=== PATIENT | male | born 1995 | race Caucasian/White ===

== ENCOUNTER 2022-10-11 19:36 | Emergency (ER) | payer OTHER, SELFPAY ==
[2022-10-11 19:44] VITALS: BP 126/91; PULSE 119; O2SAT 96
[2022-10-11 19:51] VITALS: PULSE 90; RESP 20; O2SAT 96
[2022-10-11 19:58] VITALS: BP 149/104; PULSE 91; RESP 19; TEMP 36.7; O2SAT 96
--- NOTE | 2022-10-11 20:07 | ECG_ITS ---
Test Reason : Withdrawal Blood Pressure : / mmHG Vent. Rate : 087 BPM Atrial Rate : 087 BPM P-R Int : 144 ms QRS Dur : 102 ms QT Int : 348 ms P-R-T Axes : 042 079 037 degrees QTc Int : 418 ms Normal sinus rhythm Normal ECG No previous ECGs available Referred By: Generic ED Physician Electronically Signed By:Xavi Hernandez
--- NOTE | 2022-10-11 20:30 | PC.NURSE ---
this rn assumed care of pt @ 1950. pt placed on quality assurance monitor. iv line placed 20 g R AC. ekg performed. blood work obtained and sent down to lab. pt leigh upon arrival 8. pt calm and cooperative. pt denies si/hi. pt okay per charge machine operator to keep belongings at bedside
[2022-10-11 20:35] LABS: MANUAL DIFF FLAG NO
[2022-10-11 20:36] LABS: Basophils Absolute Auto 0.1 X10*3/uL (0.0-0.2); Basophils Percent Auto 0.6 % (0-2); Eosinophils Percent Auto 0.2 % (0-4); Hematocrit 46.9 % (42.0-52.0); Hemoglobin 16.4 g/dl (14.0-18.0); Imm Gran Abs Auto 0.03 X10*3/uL (0.00-0.03); Imm Gran Pct Auto 0.3 % (0.0-0.4); Lymphocytes Absolute Auto 1.8 X10*3/uL (1.2-4.9); Lymphocytes Percent Auto 18.8 % (20-40); Mean Corpuscular Hemoglobin 31.9 pg (27.0-33.0); Mean Corpuscular Volume 91.2 fL (80.0-98.0); Mean Platelet Volume 9.6 fL (9.4-12.4); Monocytes Absolute Auto 1.2 X10*3/uL (0.1-1.2); Monocytes Percent Auto 12.1 % (2-11); Neutrophils Absolute Auto 6.5 x10*3/uL (2.0-8.3); Platelet Count 184 X10*3/uL (160-400); Red Blood Count 5.14 X10*6/uL (4.60-5.80); Red Cell Distribution Width 11.9 % (11.0-16.0); White Blood Count 9.6 X10*3/uL (4.8-10.8)
[2022-10-11 20:53] LABS: Ethanol < 10 mg/dL
[2022-10-11 20:54] LABS: Alanine Aminotransferase 202 U/L (0-40); Albumin Level 4.4 g/dL (3.5-5.0); Alkaline Phosphatase 60 U/L (39-117); Anion Gap 17 (12-20); Aspartate Amino Transferase 100 U/L (5-37); Bilirubin Direct 0.5 mg/dL (0.0-0.5); Bilirubin Total 1.6 mg/dL (0.0-1.0); Blood Urea Nitrogen 5 mg/dL (9-16); Calcium 9.6 mg/dL (8.4-10.2); Carbon Dioxide 26 mmol/L (22-29); Chloride 100 mmol/L (96-108); Creatinine Clr Calc Pharmacy 164.2; Estimated Glomerular Filt Rate > 60; Glucose Random 103 mg/dL (60-115); Potassium 3.8 mmol/L (3.3-5.1); Sodium 139 mmol/L (135-145); Total Protein 6.8 g/dL (6.5-8.0)
[2022-10-11 21:02] LABS: Troponin-I High Sensitivity < 2.7 ng/L (<3.5-35.0)
--- NOTE | 2022-10-11 21:12 | ED.ALCOHOL ---
HPI - Alcohol General Chief Complaint: ETOH/Substance Use Stated Complaint: withdraws Time Seen by Provider: 10/11/22 21:00 History of Present Illness HPI narrative: Patient is a 27 year old male presented today with having a history of alcohol use. Patient has sharp drinking alcohol 2 days ago. Went to [facility] was given a mg of Ativan. Subsequently attempted to contact detox facility but with unable to get into a detox program. Presented to the ED for help. Patient denies any fever chills. No other medical issues. Not allergic to anything. He recently relocated to the [facility] from [place] Related Data Previous Rx's Medication Instructions Recorded lorazepam 1 mg tablet (Ativan) 1 mg PO TID PRN alcohol withdrawal 10/11/22 #7 tabs Allergies Allergy/AdvReac Type Severity Reaction Status Date / Time No Known Allergies Allergy Verified 10/11/22 20:02 Review of Systems Review of Systems: No fever no chills no focal weakness Yes all other systems are reviewed and are negative [facility] Past Medical History Attestation statement: The following information was validated with the patient. Social History Social History Advance Directives: No Advance Directives Information Provided: Yes Physical Exam ED Vital Signs: Vital Signs - 24 hr 10/11/22 19:51 10/11/22 19:58 Temperature 98.1 F Pulse Rate 90 91 Respiratory Rate 20 19 Blood Pressure 149/104 H Pulse Oximetry 96 96 Oxygen Delivery Method Room Air Room Air BMI result Body Mass Index 30.0 Appearance: Alert. Oriented X3. No acute distress. Eyes: Pupils equal, round and reactive to light. ENT: Pharynx normal. Neck: Normal inspection. Neck supple. No lymph nodes noted. No crepitus CVS: Normal heart rate and rhythm. Pulses normal. Normal S1 and S2 Respiratory: No respiratory distress. Breath sounds normal. No Wheezing. No rales Abdomen: Soft and nontender. No rigidity. No distention. good BS x4 Skin: Skin warm and dry. Normal skin color. Normal skin turgor. Extremities: No lower extremity edema. Neurovascular intact to all extremities. No Lacerations. No Rash Neuro: Oriented X 3. No motor deficit. No sensory deficit. Moving all extermities. No slurred speech Medical Decision Making Medical Decision Making MDM Narrative: Patient well appearing not acute distress. Exam is normal. His vital signs showed a heart rate in the 80s. Blood pressure is normal. Patient's CIWA scale is 8. He still feels a little shaky. Will offer patient 1 mg of Ativan here in the emergency department. A prescription of Ativan. Will have patient follow-up on an outpatient basis. Care team consulted to offer patient additional traces for detox. Differential Diagnosis Alcohol withdrawal, anxiety Consult Healthcare Provider Care team Lab Data MDM Lab Attestation statement: I reviewed the patient's lab results. 10/11/22 20:31 10/11/22 20:31 Labs: Lab Results 10/11/22 10/11/22 10/11/22 Range/Units 20:31 20:31 20:31 WBC 9.6 (4.8-10.8) X10*3/uL RBC 5.14 (4.60-5.80) X10*6/uL Hgb 16.4 (14.0-18.0) g/dl Hct 46.9 (42.0-52.0) % MCV 91.2 (80.0-98.0) fL MCH 31.9 (27.0-33.0) pg MCHC 35.0 (31.0-36.0) g/dl RDW 11.9 (11.0-16.0) % Plt Count 184 (160-400) X10*3/uL MPV 9.6 (9.4-12.4) fL Immature Gran % (Auto) 0.3 (0.0-0.4) % Neut % (Auto) 68.0 (45-73) % Lymph % (Auto) 18.8 L (20-40) % [place] % (Auto) 12.1 H (2-11) % Eos % (Auto) 0.2 (0-4) % Baso % (Auto) 0.6 (0-2) % Lymph # (Auto) 1.8 (1.2-4.9) X10*3/uL [place] # (Auto) 1.2 (0.1-1.2) X10*3/uL Eos # (Auto) 0.0 (0.0-0.4) X10*3/uL Baso # (Auto) 0.1 (0.0-0.2) X10*3/uL Abs Immat Gran (auto) 0.03 (0.00-0.03) X10*3/uL Absolute Neuts (auto) 6.5 (2.0-8.3) x10*3/uL Absolute Nucleated RBC 0.000 (0.0-0.012) X10*3/uL Nucleated RBC % (auto) 0.0 (0.0-0.2) /100WBC Sodium 139 (135-145) mmol/L Potassium 3.8 (3.3-5.1) mmol/L Chloride 100 (96-108) mmol/L Carbon Dioxide 26 (22-29) mmol/L Anion Gap 17 (12-20) BUN 5 L (9-16) mg/dL Creatinine 0.79 (0.5-1.4) mg/dL Estim Creat Clear Calc 164.2 Estimated GFR > 60 Random Glucose 103 (60-115) mg/dL Calcium 9.6 (8.4-10.2) mg/dL Total Bilirubin 1.6 H (0.0-1.0) mg/dL Direct Bilirubin 0.5 (0.0-0.5) mg/dL AST 100 H (5-37) U/L ALT 202 H (0-40) U/L Alkaline Phosphatase 60 (39-117) U/L Troponin I High Sens < 2.7 (<3.5-35.0) ng/L Total Protein 6.8 (6.5-8.0) g/dL Albumin 4.4 (3.5-5.0) g/dL Ethyl Alcohol mg/dL 10/11/22 Range/Units 20:31 WBC (4.8-10.8) X10*3/uL RBC (4.60-5.80) X10*6/uL Hgb (14.0-18.0) g/dl Hct (42.0-52.0) % MCV (80.0-98.0) fL MCH (27.0-33.0) pg MCHC (31.0-36.0) g/dl RDW (11.0-16.0) % Plt Count (160-400) X10*3/uL MPV (9.4-12.4) fL Immature Gran % (Auto) (0.0-0.4) % Neut % (Auto) (45-73) % Lymph % (Auto) (20-40) % [place] % (Auto) (2-11) % Eos % (Auto) (0-4) % Baso % (Auto) (0-2) % Lymph # (Auto) (1.2-4.9) X10*3/uL [place] # (Auto) (0.1-1.2) X10*3/uL Eos # (Auto) (0.0-0.4) X10*3/uL Baso # (Auto) (0.0-0.2) X10*3/uL Abs Immat Gran (auto) (0.00-0.03) X10*3/uL Absolute Neuts (auto) (2.0-8.3) x10*3/uL Absolute Nucleated RBC (0.0-0.012) X10*3/uL Nucleated RBC % (auto) (0.0-0.2) /100WBC Sodium (135-145) mmol/L Potassium (3.3-5.1) mmol/L Chloride (96-108) mmol/L Carbon Dioxide (22-29) mmol/L Anion Gap (12-20) BUN (9-16) mg/dL Creatinine (0.5-1.4) mg/dL Estim Creat Clear Calc Estimated GFR Random Glucose (60-115) mg/dL Calcium (8.4-10.2) mg/dL Total Bilirubin (0.0-1.0) mg/dL Direct Bilirubin (0.0-0.5) mg/dL AST (5-37) U/L ALT (0-40) U/L Alkaline Phosphatase (39-117) U/L Troponin I High Sens (<3.5-35.0) ng/L Total Protein (6.5-8.0) g/dL Albumin (3.5-5.0) g/dL Ethyl Alcohol < 10 mg/dL Prescription Management Ativan Discharge Plan Discharge Clinical Impression: Alcohol withdrawal syndrome Patient Disposition: Home, Self-Care Instructions: Abuse of Alcohol (ED), Alcohol Withdrawal (DC) Prescriptions: New lorazepam [Ativan] 1 mg tablet 1 mg PO TID MDD 3 PRN (Reason: alcohol withdrawal) Qty: 7 0RF Referrals: [facility] [Provider Group] (Please go to detox.)
[2022-10-11 21:27] LABS: Amphetamine Screen Urine Not Detected (Not Detect); Barbiturates, Urine Not Detected (Not Detect); Benzodiazepines Screen Urine Not Detected (Not Detect); Cannabinoid Screen Urine Not Detected (Not Detect); Cocaine Screen Urine Not Detected (Not Detect); Fentanyl, urine Not Detected (Not Detect); Opiate Screen Urine Not Detected (Not Detect); Phencyclidine Screen Urine Not Detected (Not Detect)
[2022-10-11 21:30] LABS: Appearance Urine Clear; Color Urine Yellow; Glucose Urine UA Negative (Negative); Leukocyte Esterase Urine Negative (Negative); Nitrite Urine Negative (Negative); PH 6.5 (5.0-9.0); Urine Blood Negative (Negative); Urine Ketones 15 mg/dL (Negative); Urine Protein Negative (Neg-Trace)
--- NOTE | 2022-10-12 00:28 | MHC.CARE ---
CARE Team met with the pt at the request of Dr. Mays. Pt is requesting detox from ETOH at this time. It has been three days since the pt had his last drink. The pt stated that he drinks 750ml of hard liquor per day. Pt stated that he had the DT's for the past three days since he stopped drinking. Today, pt had a CIWA score of 8. Pt is requesting to stay in the hospital for the night in case I get worse with detoxing. Pt is anxious at his baseline and with the thought of detoxing is making his anxiety even worse. There were no detox beds available this evening. CARE Team gave the pt the resource booklet with all the detox information in it. CARE Team highlighted the sections for the pt to pay attention to. Pt stated that his family and his daughter were coming to see him tomorrow. Pt stated that he would look into a detox after they leave. Pt is in the [employer] and transferred to [place] three days ago. He just moved here from [place]. Pt stated that he has a lot of life stressors including starting the divorce process that he didn't initiate, moving to the [place], and not being able to see his daughter. Dr. Mays stated that the pt could stay here until 0645 in the morning, and then would need to be discharged. CARE Team convied this information to the pt and he agreed to it.
[2022-10-12] MEDS: LORazepam 1 MG TABLET PO (00:51)
[2022-10-12 02:49] VITALS: BP 140/88; PULSE 82; RESP 17; TEMP 36.4; O2SAT 97
--- NOTE | 2022-10-12 03:51 | PC.NURSE ---
discharge order placed. pt did not feel comfortable going home for fear withdraw could become worse, dr conroy and care team to reevaluate. per care team and dr conroy pt okay to stay until am. pt sleeping on stretcher at this time rise and fall of chest noted
--- NOTE | 2022-10-12 04:34 | PC.NURSE ---
pt provided this rn with contact persons' phones numbers per pt if should need to contact family on his behalf may contact- Maria Luisa (sister)- [phone] Sandra(mother) [phone]
[2022-10-12 06:06] VITALS: BP 138/92; PULSE 76; RESP 17; TEMP 36.6; O2SAT 94
--- NOTE | 2022-10-12 06:13 | PC.NURSE ---
pt asked if he felt comfortable for discharge and utilizing pamphlet to coordinate placement in detox. pt reports to this rn, feels safe with discharge and comfortable in finding self placement. pt states family will be coming into town tonight to assist in finding placement. this rn discussed this plan with gemma from care team and dr conroy. both agreeable to this plan.
--- NOTE | 2022-10-12 06:22 | PC.NURSE ---
pt ambulatory at discharge. iv removed. vss. pt states feels comfortable going home now. pt provided with discharge packet. pt verbalized understanding of discharge plan
== END 2022-10-12 06:23 | disposition home or self-care (01) ==
PROVIDERS: Emergency Provider Emergency Medicine Emergency Medical Services
DX: F10.239 Alcohol dependence with withdrawal, unspecified (principal); Y90.0 Blood alcohol level of less than 20 mg/100 ml; Z79.899 Other long term (current) drug therapy
CPT/HCPCS: 36415; 80053; 80307; 81003; 82248; 84484; 85025; 93005; 99284; 99285

== ENCOUNTER 2024-01-09 18:17 | Emergency (ER) | payer OTHER, SELFPAY ==
--- NOTE | ~2024-01-09 | US_ITS ---
EXAMINATION: US SCROTUM CLINICAL INFORMATION: Testicular pain. Rule out torsion.. COMPARISON: None available. TECHNIQUE: A sonogram of the scrotum was performed assessing sanchez-scale appearance and color Doppler flow. Spectral Doppler analysis of the arterial and venous flow were performed in the testes bilaterally. FINDINGS: RIGHT: Right testicle measures 5 x 2.4 x 3.3 cm, volume 21.2 mL. No focal testicular parenchymal lesions are visualized. Echogenicity is mildly heterogeneous and striated. Spectral Doppler analysis of the arterial and venous flow is increased in the right testis. Right epididymal head is normal in size. No right varicocele is seen. Right epididymal Doppler flow is normal. Small complex right-sided hydrocele. LEFT: Left testicle measures 5.2 x 2.3 x 3.4 cm, volume 20.5 mL. No focal testicular parenchymal lesions are visualized. Spectral Doppler analysis of the arterial and venous flow is normal in the left testis. Left epididymal head is normal in size. No left hydrocele or varicocele is seen. Left epididymal Doppler flow is normal. US/US scrotum doppler IMPRESSION: 1. Slight parenchymal heterogeneity in the right testicle with increased blood flow on color Doppler. This can be seen with orchitis or recent detorsion of the testicle.. 2. Small complex right-sided hydrocele.
--- NOTE | ~2024-01-09 | US_ITS ---
EXAMINATION: US SCROTUM CLINICAL INFORMATION: Testicular pain. Rule out torsion.. COMPARISON: None available. TECHNIQUE: A sonogram of the scrotum was performed assessing sanchez-scale appearance and color Doppler flow. Spectral Doppler analysis of the arterial and venous flow were performed in the testes bilaterally. FINDINGS: RIGHT: Right testicle measures 5 x 2.4 x 3.3 cm, volume 21.2 mL. No focal testicular parenchymal lesions are visualized. Echogenicity is mildly heterogeneous and striated. Spectral Doppler analysis of the arterial and venous flow is increased in the right testis. Right epididymal head is normal in size. No right varicocele is seen. Right epididymal Doppler flow is normal. Small complex right-sided hydrocele. LEFT: Left testicle measures 5.2 x 2.3 x 3.4 cm, volume 20.5 mL. No focal testicular parenchymal lesions are visualized. Spectral Doppler analysis of the arterial and venous flow is normal in the left testis. Left epididymal head is normal in size. No left hydrocele or varicocele is seen. Left epididymal Doppler flow is normal. US/US scrotum IMPRESSION: 1. Slight parenchymal heterogeneity in the right testicle with increased blood flow on color Doppler. This can be seen with orchitis or recent detorsion of the testicle.. 2. Small complex right-sided hydrocele.
--- NOTE | 2024-01-09 18:19 | ED_ITS ---
HPI - Male Genitourinary General Chief complaint: Urogenital-Male Stated complaint: severe katie pain in testes, nausea, fever 101 Time Seen by Provider: 01/09/24 20:20 Source: patient Mode of arrival: ambulatory Limitations: no limitations History of Present Illness HPI Narrative: This is a 28-year-old man with a past medical history of alcohol use disorder, hernia repair who presents for evaluation of right testicular pain. Patient states pain is gradually worsening over the last 1 day. He States pain is in his right testicle. He states associated nausea without emesis. He states no dysuria or urinary frequency/urgency. He states no changes to his bowel habits. He states no fevers or chills. He reports his right testicle is tender to palpation. He states no rash. He states no chest pain, dyspnea, palpitations or syncope. He states no abdominal pain. He states no back pain. Related Data Previous Rx's ?Medication ?Instructions ?Recorded lorazepam 1 mg tablet (Ativan) 1 mg PO TID PRN alcohol withdrawal 10/11/22 #7 tabs doxycycline hyclate 100 mg tablet 100 mg PO BID #20 tabs 01/09/24 Allergies Allergy/AdvReac Type Severity Reaction Status Date / Time No Known Allergies Allergy Verified 01/09/24 18:27 Review of Systems 2 Review of Systems: ROS as per [facility] Social History Social History Alcohol intake: current Alcohol intake frequency: 3 or more drinks per day Alcohol type: hard liquor Smoked in Last 30 Days: No Use of substances other than those prescribed or required for medical reasons: No Advance Directives: No Advance Directives Information Provided: No Physical Exam 2 Vital Signs: Vital Signs: Last Vital Signs Temp 99.0 F 01/09/24 20:21 Pulse 86 01/09/24 20:21 Resp 16 01/09/24 20:21 BP 122/77 01/09/24 20:21 Pulse Ox 96 01/09/24 20:21 O2 Del Method Room Air 01/09/24 20:21 BMI result Body Mass Index 30.9 Gen: NAD, AOx3 HEENT: NCAT, EOMI, normal conjunctiva CV: RRR Pulm: CTAB, no increased work of breathing GI: Soft, NTND, no rebound, guarding or rigidity : Performed global transportation manager Evy Morgan RN preseent, normal external male genitalia, no testicular horizontal lie, tenderness to palpation to the right posterior testicle, intact bilateral cremasteric reflex, negative Prehn sign, no palpable inguinal hernia Neuro: Grossly non focal Course Course Course Narrative: This is a Rapid Medical Exam performed in triage by Taniya Sumner PA-C. Full HPI, ROS and PE to be performed by primary ED provider. 28 year-old M w/PMHx hernia s/p repair, strep throat currently on Abx, presenting to the ED c/o near syncopal episode earlier today and R testicular pain radiating to groin starting last night but worsening today. Pain worse with ambulating and standing described as pulling . Pain began randomly, denies trauma or pain after intercourse. Admits to fever, nausea. denies hematuria, dysuria PE: abdomen soft & nontender Plan: Labs, UA, CTNG, US Medications Administered Discontinued Medications Generic Name Dose Route Start Last Admin Trade Name Freq PRN Reason Stop Dose Admin Sodium Chloride 1,000 mls @ 999 mls/hr 01/09/24 20:30 01/09/24 22:10 Ns IV 01/09/24 21:30 Infused .Q1H1M TIMA Infusion Ceftriaxone Sodium 1 gm/ 50 mls @ 100 mls/hr 01/09/24 23:02 01/09/24 23:31 Sodium Chloride IV 01/09/24 23:31 100 mls/hr ONCE ONE Administration Ketorolac Tromethamine 15 mg 01/09/24 20:30 01/09/24 21:01 Ketorolac Tromethamine 15 Mg/Ml Vial IVPUSH 01/09/24 20:31 15 mg ONCE ONE Administration Ondansetron HCl 4 mg 01/09/24 20:30 01/09/24 21:01 Ondansetron Hcl 4 Mg/2 Ml Vial IVPUSH 01/09/24 20:31 4 mg ONCE ONE Administration Medical Decision Making Medical Decision Making MDM Narrative: Differential diagnosis includes, but is not limited to testicular torsion, epididymitis urinary tract infection, sexually transmitted infection. Patient brought in supportive care here with IV fluids, Zofran and Toradol. I discussed case and management with the oncoming physician Dr. Pete. Care is transitioned to incoming physician at the end of my shift with disposition pending remaining urinalysis/G and C and ultrasound imaging results Patient comes with right testicular pain for last 24 gradual onset with a got worse nausea and vomiting patient been treated for strep throat for last 2 days had fever 102f , 2 days ago and today was 101 degrees taking Augmentin twice a day feeling much better on examination patient has slight tenderness in right testicle skin is normal in color no penile discharge no history of STIs no history of an anal intercourse ultrasound showed ??? right orchitis/recent detorsion. Patient's lactic acid is 1.[address] Buckner urologist likely orchitis advised to follow up as outpatient advised patient to continue Augmentin will add doxycycline Admission/Observation Consideration of admission/observation: Escalation of care including admission/observation considered Lab Data MDM Lab Attestation statement: I reviewed the patient's lab results. I independently reviewed and interpreted patient's labs are notable for a leukocytosis with a white blood cell count of 18.0. 01/09/24 18:32 01/09/24 18:32 Labs: Lab Results 01/09/24 01/09/24 Range/Units 18:32 23:20 WBC 18.0 H (4.8-10.8) X10*3/uL RBC 5.22 (4.60-5.80) X10*6/uL Hgb 15.7 (14.0-18.0) g/dl Hct 45.6 (42.0-52.0) % MCV 87.4 (80.0-98.0) fL MCH 30.1 (27.0-33.0) pg MCHC 34.4 (31.0-36.0) g/dl RDW 12.2 (11.0-16.0) % Plt Count 226 (160-400) X10*3/uL MPV 10.2 (9.4-12.4) fL Immature Gran % (Auto) 0.6 H (0.0-0.4) % Neut % (Auto) 69.5 (45-73) % Lymph % (Auto) 19.7 L (20-40) % [place] % (Auto) 9.6 (2-11) % Eos % (Auto) 0.3 (0-4) % Baso % (Auto) 0.3 (0-2) % Lymph # (Auto) 3.6 (1.2-4.9) X10*3/uL [place] # (Auto) 1.7 H (0.1-1.2) X10*3/uL Eos # (Auto) 0.1 (0.0-0.4) X10*3/uL Baso # (Auto) 0.1 (0.0-0.2) X10*3/uL Abs Immat Gran (auto) 0.11 H (0.00-0.03) X10*3/uL Absolute Neuts (auto) 12.5 H (2.0-8.3) x10*3/uL Absolute Nucleated RBC 0.000 (0.0-0.012) X10*3/uL Nucleated RBC % (auto) 0.0 (0.0-0.2) /100WBC Smear Tech's Comments VERIFIED Sodium 141 (135-145) mmol/L Potassium 4.9 (3.3-5.1) mmol/L Chloride 102 (96-108) mmol/L Carbon Dioxide 27 (22-29) mmol/L Anion Gap 17 (12-20) BUN 11 (9-16) mg/dL Creatinine 0.97 (0.5-1.4) mg/dL Estim Creat Clear Calc 134.5 Estimated GFR > 60 Random Glucose 128 H (60-115) mg/dL Lactic Acid 1.9 (0.5-2.0) mmol/L Calcium 9.8 (8.4-10.2) mg/dL Magnesium 2.1 (1.6-2.6) mg/dL Total Bilirubin 0.5 (0.0-1.0) mg/dL Direct Bilirubin 0.2 (0.0-0.5) mg/dL AST 13 (5-37) U/L ALT 16 (0-40) U/L Alkaline Phosphatase 64 (39-117) U/L Total Protein 7.7 (6.5-8.0) g/dL Albumin 4.5 (3.5-5.0) g/dL Lipase 13 (8-78) U/L Urine Color Yellow Urine Appearance Clear Urine pH 6.5 (5.0-9.0) Ur Specific Isabel 1.010 (1.005-1.025) Urine Protein Negative (Neg-Trace) mg/dL Urine Glucose (UA) Negative (Negative) mg/dL Urine Ketones Negative (Negative) mg/dL Urine Blood Negative (Negative) Urine Nitrite Negative (Negative) Ur Leukocyte Esterase Negative (Negative) Discharge Plan Discharge Clinical Impression: Orchitis of right testicle Patient Disposition: Home, Self-Care Instructions: Orchitis (ED) Additional Instructions: Likely pain in your right testicle is from infection of right testicle Continue your Augmentin for total of 10 days Doxycycline twice a day for 10 days Scrotal support as advised Follow with urologist next week for follow up images Report to the ER if worsening of the pain Prescriptions: New doxycycline hyclate 100 mg tablet 100 mg PO BID Qty: 20 0RF No Action lorazepam [Ativan] 1 mg tablet 1 mg PO TID MDD 3 PRN (Reason: alcohol withdrawal) Qty: 7 0RF Print Language: Swedish
[2024-01-09 18:20] VITALS: BP 109/74; PULSE 88; RESP 20; TEMP 36.1; O2SAT 95; BMI 30.9
[2024-01-09 18:55] LABS: Alanine Aminotransferase 16 U/L (0-40); Albumin Level 4.5 g/dL (3.5-5.0); Alkaline Phosphatase 64 U/L (39-117); Anion Gap 17 (12-20); Aspartate Amino Transferase 13 U/L (5-37); Bilirubin Direct 0.2 mg/dL (0.0-0.5); Bilirubin Total 0.5 mg/dL (0.0-1.0); Blood Urea Nitrogen 11 mg/dL (9-16); Calcium 9.8 mg/dL (8.4-10.2); Carbon Dioxide 27 mmol/L (22-29); Chloride 102 mmol/L (96-108); Creatinine Clr Calc Pharmacy 134.5; Estimated Glomerular Filt Rate > 60; Glucose Random 128 mg/dL (60-115); Lipase 13 U/L (8-78); Magnesium 2.1 mg/dL (1.6-2.6); Potassium 4.9 mmol/L (3.3-5.1); Sodium 141 mmol/L (135-145); Total Protein 7.7 g/dL (6.5-8.0)
[2024-01-09 18:56] LABS: Basophils Absolute Auto 0.1 X10*3/uL (0.0-0.2); Basophils Percent Auto 0.3 % (0-2); Eosinophils Absolute Auto 0.1 X10*3/uL (0.0-0.4); Eosinophils Percent Auto 0.3 % (0-4); Hematocrit 45.6 % (42.0-52.0); Hemoglobin 15.7 g/dl (14.0-18.0); Imm Gran Abs Auto 0.11 X10*3/uL (0.00-0.03); Imm Gran Pct Auto 0.6 % (0.0-0.4); Lymphocytes Absolute Auto 3.6 X10*3/uL (1.2-4.9); Lymphocytes Percent Auto 19.7 % (20-40); MANUAL DIFF FLAG SCAN; Mean Corpuscular HGB Conc 34.4 g/dl (31.0-36.0); Mean Corpuscular Hemoglobin 30.1 pg (27.0-33.0); Mean Corpuscular Volume 87.4 fL (80.0-98.0); Mean Platelet Volume 10.2 fL (9.4-12.4); Monocytes Absolute Auto 1.7 X10*3/uL (0.1-1.2); Monocytes Percent Auto 9.6 % (2-11); Neutrophils Absolute Auto 12.5 x10*3/uL (2.0-8.3); Neutrophils Percent Auto 69.5 % (45-73); Platelet Count 226 X10*3/uL (160-400); Red Blood Count 5.22 X10*6/uL (4.60-5.80); Red Cell Distribution Width 12.2 % (11.0-16.0); SCAN SMEAR FLAG 1
[2024-01-09 19:24] LABS: SLIDE REVIEW VERIFIED
[2024-01-09 20:21] VITALS: BP 122/77; PULSE 86; RESP 16; TEMP 37.2; O2SAT 96
[2024-01-09] MEDS: ondansetron HCL 4 MG/2 ML VIAL IVPUSH (21:01)
[2024-01-09] MEDS: Ketorolac Tromethamine 15 MG/ML VIAL IVPUSH (21:01)
[2024-01-09] MEDS: 0.9 % Sodium Chloride 1,000 ML 999 ML IV (21:01)
[2024-01-09] MEDS: cefTRIAXone sodium 1 GM in 0.9 % Sodium Chloride 50 ML IV (23:31)
[2024-01-09 23:33] LABS: Appearance Urine Clear; Color Urine Yellow; Glucose Urine UA Negative (Negative); Leukocyte Esterase Urine Negative (Negative); Nitrite Urine Negative (Negative); PH 6.5 (5.0-9.0); Urine Blood Negative (Negative); Urine Ketones Negative (Negative); Urine Protein Negative (Neg-Trace)
[2024-01-09 23:40] LABS: Lactic Acid 1.9 mmol/L (0.5-2.0)
[2024-01-09 23:46] VITALS: BP 115/73; PULSE 78; RESP 16; TEMP 36.9; O2SAT 94
[2024-01-09] MEDS: Doxycycline Monohydrate 100 MG CAPSULE PO (23:50)
[2024-01-09 23:59] VITALS: BP 115/73; PULSE 78; RESP 16; TEMP 36.9; O2SAT 94
[2024-01-10 06:30] LABS: CT PCR NOT DETECTED (Not Detect.); NG PCR NOT DETECTED (Not Detect.)
== END 2024-01-10 00:03 | disposition home or self-care (01) ==
PROVIDERS: Internal Medicine; Physician Assistant; Emergency Provider Emergency Medicine; PCP Internal Medicine
DX: N45.2 Orchitis (principal); N50.811 Right testicular pain
CPT/HCPCS: 36415; 76870; 80048; 80076; 81003; 83605; 83690; 83735; 85025; 87040; 87491; 87591; 93975; 96361; 96365; 96375; 99284; 99285; J0696; J1885; J2405

== ENCOUNTER 2024-06-01 11:07 | Outpatient (AMB) | payer OTHER, SELFPAY ==
[2024-06-01 11:58] VITALS: BP 112/70; PULSE 66; TEMP 36.7; O2SAT 99; BMI 32.5
--- NOTE | 2024-06-01 11:58 | AM.OFFWIN_ITS ---
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 sinus infection Intake Note: pt is here for c/o sinus congestion, neck stickness Allergies No Known Allergies Allergy (Verified 06/01/24 11:58) Do you need a note to return to daycare/school/sports/work: Yes HPI HPI Comments History of Present Illness Details History - The patient is a 29-year-old male pres enting with nasal congestion and body aches since Friday. - Initial symptoms included now resolved low-grade fever, persistent nasal congestion, and drainage. - Fever resolved, but nasal and sinus co ngestion persist, alongside bilateral neck stiffness and body aches. - Past medical history includes childhoo d ear infections and a ruptured eardrum six to seven years ago. - Current medication involves DayQuil, N yQuil, and Tylenol without significant improvement.. - Patient vapes but denies asthma or farzaneh rtness of breath. Physical Exam General: Cooperative, healthy appearing, comfortable and no acute distress Orientation/consciousness: Patient oriented x3 Limitations: No limitations Head: Normal to inspection Ears: Hearing grossly normal bilaterally, external ears normal, TM's w/erythema, bulging, bilaterally Nose: Normal external nose present, Normal nares present and Nasal congestion present Face and sinus: Normal facial exam and Sinuses tender Mouth: Normal oral and palatal mucosa present and moist mucous membranes Throat: Yes tonsils normal, Yes uvula midline. Posterior oropharynx erythema, no exudates Eyes: Appearance normal, both eyes and all related structures Neck: Stiff neck Respiratory: Clear to auscultation bilaterally. Normal respiratory effort, able to speak in complete sentences, Actively coughing, no respiratory distress, not tachypneic, no tripod positioning and no use of accessory muscles Cardiovascular: Regular rate and rhythm. Normal S1 and S2 Skin: No rashes or lesions noted Neuro: Patient oriented x3 Extremities: Normal to inspection and Yes no clubbing, cyanosis or edema PFSH Social History Alcohol intake: current Alcohol intake frequency: 3 or more drinks per day Alcohol type: hard liquor Review of Systems Const All systems reviewed & are unremarkable except as noted in HPI and below Physical Exam Vital Signs: Last Vital Signs Temp 98.0 F 06/01/24 11:58 Pulse 66 06/01/24 11:58 BP 112/70 06/01/24 11:58 Pulse Ox 99 06/01/24 11:58 BMI result Body Mass Index 32.5 Assessment & Plan Assessment & Plan (1) Otitis media of both ears: Code(s): H66.93 - Otitis media, unspecified, bilateral Qualifiers: Otitis media type: suppurative Chronicity: acute Recurrence: non- recurrent Spontaneous tympanic membrane rupture: without spontaneous rupture Qualified Code(s): H66.003 - Acute suppurative otitis media without spontaneous rupture of ear drum, bilateral Plan: Plan - The patient is receiving management for bilateral acute otitis media with the prescription of amoxicillin for a seven-day course. For the nasal congestion, the patient has been instructed on the use of a neti pot with distilled water and Flonase nasal spray to assist with sinus drainage. Detailed guidance on proper usage was provided to improve efficacy. Tests to rule out viral infections such as influenza, COVID-19, and RSV have been performed, with results pending. In combination, hydration efforts were recommended to support lymphatic drainage. The patient was also advised to refrain from work to prevent possible contagion dissemination, pending test outcomes. Patient was informed and verbally consented to the use of an ambient scribe for clinic note documentation during this visit (2) URI, acute: Code(s): J06.9 - Acute upper respiratory infection, unspecified Plan: as above Orders: Orders SARS-CoV2/FLU/RSV Today R09.89 - Other specified symptoms and signs involving the circulatory and respiratory systems Medications: New amoxicillin 875 mg PO Q12H 14 tabs 0RF Discontinued lorazepam (Ativan) Discontinued Reason: Patient Completed Course 1 mg PO TID PRN 7 tabs 0RF alcohol withdrawal MDD 3 doxycycline hyclate Discontinued Reason: Patient Completed Course 100 mg PO BID 20 tabs 0RF Coding Level of Care Code Est Pt Level 3 (79505) Diagnoses Non-recurrent acute suppurative otitis media of both ears without spontaneous rupture of tympanic membranes H66.003 Otitis media type: suppurative Chronicity: acute Recurrence: non-recurrent Spontaneous tympanic membrane rupture: without spontaneous rupture URI, acute J06.9
== END 2024-06-01 12:30 | disposition home or self-care (01) ==
PROVIDERS: PCP Nurse Practitioner Family; Visit Provider Physician Assistant
DX: H66.003 Acute suppurative otitis media without spontaneous rupture of ear drum, bilateral (principal); J06.9 Acute upper respiratory infection, unspecified

== ENCOUNTER 2024-06-01 11:07 | Outpatient (REF) | payer OTHER, SELFPAY ==
[2024-06-01 17:17] LABS: Influenza A PCR NEGATIVE (Negative); Influenza B PCR NEGATIVE (Negative); Resp Syncy Virus RNA Qual PCR NEGATIVE (Negative); SARS COV2 PCR INHOUSE NEGATIVE (Negative)
== END 2024-06-01 11:08 | disposition home or self-care (01) ==
LOC: HO.LAB 11:07
PROVIDERS: PCP Nurse Practitioner Family; Visit Provider Physician Assistant
DX: H66.003 Acute suppurative otitis media without spontaneous rupture of ear drum, bilateral (principal); J06.9 Acute upper respiratory infection, unspecified; R09.89 Other specified symptoms and signs involving the circulatory and respiratory systems
CPT/HCPCS: 0241U; 99212

== ENCOUNTER 2024-07-13 15:12 | Outpatient (AMB) | payer OTHER, SELFPAY ==
--- NOTE | 2024-07-13 15:37 | AM.OFFWIN_ITS ---
Intake Vital Signs 07/13/24 15:38 Weight 225 lb BP 128/100 H Blood Pressure Location Rt brachial Position Sitting Pulse 88 Pulse Source Pulse Oximeter Pulse Oximetry (%) 97 Oxygen Delivery Method Room Air Intake Visit Reasons: EP dizzy, feeling off, ?elevated BP Intake Note: Patient here for elevated BP which has been noticeably high the past month or so. has been having dizziness and lethargic, denies any headaches. Patient Tobacco Use Status: Never used Tobacco Allergies No Known Allergies Allergy (Verified 06/01/24 11:58) Do you need a note to return to daycare/school/sports/work: Yes HPI HPI Comments History of Present Illness Details History of Present Illness - The patient is a 29-year-old male pres enting with elevated blood pressures, he has been checking at home with a cuff from [employer]. 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 Recorded highest blood pressure was 152/103 mmHg. All 8 readings are 140-150s systolic/80-90 diastolic. - Symptoms such as dizziness upon standi ng and cold toes suggest possible circulatory complications. Lethargy is noted, yet no loss of consciousness, chest pain, or significant increase in baseline headaches have been reported. - Previous medical management involved p ropranolol for anxiety, with recent dietary modification to reduce sodium intake. - The patient is in transition to [facility] a primary care provider, leading to the current visit for urgent care management and to obtain documentation for activity restriction in relation to physical testing requirements. - The patient states his paternal grandf ather had hypertension at a young age. - He has to undergo fit testing next week and is asking for a note to exclude him while he is trying to get his BP under control Physical Exam General: Cooperative, healthy appearing, comfortable, no acute distress and well developed Orientation: Patient oriented x3 Limitations: none Head: Normal to inspection Ears: Hearing grossly normal bilaterally Nose: Normal external nose present Face and sinus: Normal facial exam Eyes: Appearance normal, both eyes and all related structures Neck: Normal visual inspection and Yes full ROM Respiratory: Normal respiratory effort and able to speak in complete sentences. Skin: No rashes or lesions noted Neuro: Patient oriented x3 Extremities: Normal to inspection PFSH Social History Alcohol intake: current Alcohol intake frequency: 3 or more drinks per day Alcohol type: hard liquor Patient Tobacco Use Status: Never used Tobacco Review of Systems Const All systems reviewed & are unremarkable except as noted in HPI and below Physical Exam Vital Signs: Last Vital Signs Pulse 88 07/13/24 15:38 BP 128/100 H 07/13/24 15:38 Pulse Ox 97 07/13/24 15:38 Oxygen Delivery Method Room Air 07/13/24 15:38 Assessment & Plan Assessment & Plan (1) Elevated blood pressure reading without diagnosis of hypertension: Code(s): R03.0 - Elevated blood-pressure reading, without diagnosis of hypertension Plan: Pt has consistently elevated BP's with some symptoms over the past month. Today's management focused on the initiation of lisinopril 10 mg in the morning for hypertension control, with explicit instructions regarding administration and monitoring criteria. The patient was advised to hold lisinopril if blood pressure is too low and to discontinue propranolol while monitoring the response to lisinopril. Activity restrictions were documented due to exacerbation of symptoms with exertion. A follow-up appointment was scheduled for next week to establish care with a new PCP (Dr. Leti Lomeli in [facility]) for further evaluation and laboratory checks, particularly focusing on renal function. Patient was asked to record BP twice a day for the next week and bring his records to his appt next week. Additionally, recent dietary changes should continue as part of lifestyle modifications to complement medical management. Wrote note to put him on Light duty with restrictions; no frequent lifting, pushing, pulling, or carrying anything greater than 40 pounds; no running or cardiovascular activities. Follow up on 07/20 with new PCP as above. Patient was informed and verbally consented to the use of an ambient scribe for clinic note documentation during this visit. Medications: New lisinopril 10 mg PO DAILY 14 tabs 0RF Coding Level of Care Code New Pt Level 4 (03641) Diagnoses Elevated blood pressure reading without diagnosis of hypertension R03.0
[2024-07-13 15:38] VITALS: BP 128/100; PULSE 88; O2SAT 97
--- OUTSIDE RECORDS SUMMARY | 2024-07-13 16:07 | XMS_ITS | Clinical Summary ---
Author Organization [facility] ity Address [address] [place] [address] Care Team Providers Care Poolroom/Poolhall Manager Name Role Phone Unavailable Primary Care Provider Unavailabl e Social History Tobacco Use Types Packs/Day Years Used Date Smoking Tobacco: Never Assessed Sex and Gender Information Value Date Recorded Sex Assigned at Not on file Legal Sex Male 9:14 PM EST Gender Identity Not on file Sexual Orientation Not on file Plan of Treatment Health Maintenance Due Date Last Done Comments DTaP,Tdap,and Td Vaccines (1 - Tdap) 2012 Hepatitis B Vaccines (1 of 3 - 19+ 3-dose series) 2012 Depression Screening 06/20/2023 HIV Screening 06/20/2023 Hepatitis C Screening 06/20/2023 Social Influencers of Health Screening 06/20/2023 COVID-19 Vaccine ( - 2023-2 5 season) 2024 Influenza Vaccine (#1) 2024 HIB Vaccines Aged Out No longer eligi ble based on patient's age to complete this topic HPV Vaccines Aged Out No longer eligi ble based on patient's age to complete this topic Hepatitis A Vaccines Aged Out No long er eligible based on patient's age to complete this topic IPV Vaccines Aged Out No longer eligi ble based on patient's age to complete this topic MMR Vaccines Aged Out No longer eligi ble based on patient's age to complete this topic Meningococcal ACWY Vaccine Aged Out N o longer eligible based on patient's age to complete this topic Meningococcal B Vacine Aged Out No lo nger eligible based on patient's age to complete this topic Pneumococcal Vaccine: Pediat rics (0 to 5 Years) and At-Risk Patients (6 to 64 Years) Aged Out No longer eligible b ased on patient's age to complete this topic RSV Immunization Patients Un vipul 20 months Aged Out No longer eligible b ased on patient's age to complete this topic Varicella Vaccines Aged Out No longer eligible based on patient's age to complete this topic
== END 2024-07-13 16:08 | disposition home or self-care (01) ==
PROVIDERS: Visit Provider Physician Assistant
DX: R03.0 Elevated blood-pressure reading, without diagnosis of hypertension (principal)

== ENCOUNTER → 2024-07-13 15:12 | Outpatient (BNVA) | payer OTHER, SELFPAY | DX: R03.0 Elevated blood-pressure reading, without diagnosis of hypertension (principal) | CPT/HCPCS: 99212 ==

== ENCOUNTER 2024-07-20 15:17 | Outpatient (AMB) | payer OTHER, SELFPAY ==
--- NOTE | 2024-07-20 15:27 | A.OFFPC_ITS ---
Vital Signs 07/20/24 15:36 Height 5 ft 11 in Weight 231 lb 4 oz BMI 32.2 BP 106/66 Blood Pressure Location Rt brachial Position Sitting Respiration 16 Pulse 84 Pulse Source Pulse Oximeter Pulse Oximetry (%) 97 Oxygen Delivery Method Room Air Intake Visit Reasons: new patient, HTN Intake Note: New patient visit [employer] Tender Required: No Allergies No Known Allergies Allergy (Verified 07/20/24 15:29) Medication List - Last Reconciled 07/21/24 by Leti Lomeli MD cyclobenzaprine 10 mg PO BEDTIME PRN dextroamphetamine-amphetamine 20 mg ER (Adderall XR) 20 mg PO DAILY escitalopram oxalate 20 mg PO DAILY hydroxyzine pamoate 50 mg PO DAILY PRN lisinopril 10 mg PO DAILY sildenafil mg PO Tobacco use date assessed: 07/20/24 Dental Screening Dental Screen Date: 07/20/24 Did you have a dental visit in the last 12 months?: No Did you have a dental problem in the last 6 months where you did not have access to dental care?: No Was dental information given to patient?: Patient has dentist HPI HPI Comments History of Present Illness Details The patient is a 29-year-old male presenting with hypertension, anxiety, h/o resolved ETOH use, low back pain presenting to [facility] 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 3 y/o daughter with mom in [facility]. Hopes to move there in next year. Following with psychiatry. Doing well on lexapro and vistaril. Previously on adderall for ADD-would like to restart. CV: Blood pressure now controlled on lisinopril which was started ~2 weeks ago. Previously on propranolol, now off History of low back pain, spasm. Flexeril has helped in the past when it gets tight. ROS see hpi PHYSICAL EXAM: GENERAL: Alert and oriented x 3. NAD EYES: EOMI. Anicteric. HENT: Moist mucous membranes. No scleral icterus. No cervical lymphadenopathy. LUNGS: Clear to auscultation bilaterally. CARDIOVASCULAR: Regular rate and rhythm. No murmur. No JVD. ABDOMEN: Soft, non-tender +bs EXTREMITIES: No edema. Non-tender. SKIN: No rashes or lesions. Warm. NEUROLOGIC: No focal neurological deficits. CN II-XII grossly intact PSYCHIATRIC: Cooperative. Appropriate mood and affect PFSH Surgical History (Updated 07/20/24 @ 15:39 by Theresa Yung CMA) Stanley teeth removed Hx of tonsillectomy H/O hernia repair Family History (Updated 07/20/24 @ 15:45 by Theresa Yung CMA) Father HTN (hypertension) Anxiety Mother Melanoma Maternal Grandmother Lung cancer Paternal Grandmother Colon cancer Maternal Grandfather Lung cancer Paternal Grandfather Anxiety Brother Anxiety Other FH: mental illness Substance abuse Social History (Updated 07/20/24 @ 15:40 by Theresa Yung CMA) Housing: Apartment Alcohol intake: current Alcohol intake frequency: 3 or more drinks per day Alcohol type: hard liquor Patient Tobacco Use Status: Former Tobacco user Cigarettes Per Day: 3 Years Smoked: 2 e-Cigarette/Vaping Use: Currently Using Second Hand Smoke Exposure: No service: Yes ([employer]) Current occupational status: employed Current occupation: [employer] Current occupational exposures/hazards: Yes (cromion, radiation) Cognitive needs: No Hearing needs: No Vision needs: No Questionnaire PHQ-9 Over the last 2 weeks, how often have you been bothered by any of the following problems? 1. Little interest or pleasure in doing things: not at all 2. Feeling down, depressed, or hopeless: not at all 3. Trouble falling or staying asleep, or sleeping too much: several days 4. Feeling tired or having little energy: several days 5. Poor appetite or overeating: not at all 6. Feeling bad about yourself - or that you are a failure or have let yourself or your family down: not at all 7. Trouble concentrating on things, such as reading the newspaper or watching television: not at all 8. Moving or speaking so slowly that other people could have noticed. Or the opposite - being so fidgety or restless that you have been moving around a lot more than usual: not at all 9. Thoughts that you would be better off or of hurting yourself in some way: not at all Total score: 2 Depression Screening Interpretation: Negative Depression Screening Done: Yes 72042 - PHQ-9 Billing: Yes Source: Developed by Drs. Terell Tafoya, Misty Doherty, Samuel Powers and colleagues, with an educational paris from [employer]. Thrive Questionnaire Date Thrive assessed: 07/20/24 I am a: Patient What is your living situation today?: I have a steady place to live Within the past 12 months, did the food you bought not last and you didn't have the money to get more?: Never true Within the past 12 months, did you worry whether your food would run out before you got money to buy more?: Never true Do you have trouble paying for medicines?: No Do you have trouble getting transportation to medical appointments?: No Do you have trouble paying your heating and electricity bill?: No Do you have trouble taking care of your child, family member or friend?: No Do you have trouble with day-to-day activities such as bathing, preparing meals, shopping, managing finances, etc.?: No Are you currently unemployed and looking for a job?: No Are you interested in more education?: No Please select the resources that you would like help with: None Currently or been in a relationship where the following occur: No concerns reported THRIVE Score: 0 AUDIT C Alcohol Use Questionnaire (AUDIT-C) 1. How often do you have a drink containing alcohol?: Never Total Score: 0 MAYTE-7 AMB Questionnaire MAYTE-7 Date MAYTE - 7 assessed: 07/20/24 Feeling nervous, anxious, or on edge: 1 = Several days Not being able to stop or control worryin = Not at all Worrying too much about different things: 0 = Not at all Trouble relaxin = Not at all Being so restless that it is hard to sit still: 2 = More than half the days Becoming easily annoyed or irritable: 0 = Not at all Feeling afraid as if something awful might happen: 0 = Not at all Total MAYTE-7 score (0-4 normal; 5-9 mild; 10-14 moderate; 15-21 severe): 3 Source: Developed by Drs. Terell Tafoya, Misty Doherty, Samuel Powers and colleagues, with an educational paris from [employer]. MAYTE-7 Assessment Billing MAYTE-7 Assessment Tool: MAYTE-7 Assessment 04477 Physical exam (Primary Care) Vital Signs: Last Vital Signs Pulse 84 07/20/24 15:36 Resp 16 07/20/24 15:36 BP 106/66 07/20/24 15:36 Pulse Ox 97 07/20/24 15:36 Oxygen Delivery Method Room Air 07/20/24 15:36 BMI result Body Mass Index 32.2 Tobacco/Smoking Status: Tobacco use Status Tobacco use date assessed 07/20/24 07/20/24 15:35 Patient Tobacco Use Status Former Tobacco user 07/20/24 15:40 e-Cigarette/Vaping Use Currently Using 07/20/24 15:40 PHQ-9: PHQ-9 Score PHQ-9: Total score 2 07/21/24 09:25 Depression Screening Interpretation: Negative Thrive Assessment: Date of Thrive Assessment Date Thrive assessed 07/20/24 07/20/24 15:45 Currently or been in a relationship where the following occur: No concerns reported Coding Level of Care Code New Pt Level 4 (41167) Complex EM visit Add On G2211 Diagnoses Encounter to establish care Z76.89 Primary hypertension I10 Hypertension type: primary hypertension Lumbar back pain M54.50 Additional Codes MAYTE-7 Assessment Billing - MAYTE-7 Assessment Tool: MAYTE-7 Assessment 47699 ([id number]) PHQ-9 - 86620 - PHQ-9 Billing: Yes ([id number]) Assessment & Plan Assessment & Plan (1) Encounter to establish care: Code(s): Z76.89 - Persons encountering health services in other specified circumstances Category: Medical (2) Hypertension: Code(s): I10 - Essential (primary) hypertension Category: Medical Qualifiers: Hypertension type: primary hypertension Qualified Code(s): I10 - Essential (primary) hypertension (3) Lumbar back pain: Code(s): M54.50 - Low back pain, unspecified Category: Medical Plan 29 y/o to establish care. Past medical, surgical, social and family history reviewed. Chart updated. Anxiety is well controlled.continue BH follow up Restart adderall for ADD Low back pain-flexeril as needed. Will let me know if needs referral Orders: Orders Comprehensive Met. Panel 07/20/24 M54.50 - Low back pain, unspecified, R03.0 - Elevated blood-pressure reading, without diagnosis of hypertension Complete Blood Count Auto Diff 07/20/24 M54.50 - Low back pain, unspecified, R03.0 - Elevated blood-pressure reading, without diagnosis of hypertension Lipid Panel 07/20/24 M54.50 - Low back pain, unspecified, R03.0 - Elevated blood-pressure reading, without diagnosis of hypertension TSH reflex Free T4 07/20/24 M54.50 - Low back pain, unspecified, R03.0 - Elevated blood-pressure reading, without diagnosis of hypertension Medications: New dextroamphetamine-amphetamine 20 mg ER (Adderall XR) Partial Fill upon patient request. 20 mg PO DAILY 60 caps 0RF F98.8 - Other specified behavioral and emotional disorders with onset usually occurring in childhood and adolescence cyclobenzaprine 10 mg PO BEDTIME PRN 90 tabs 3RF muscle spasm M54.50 - Low back pain, unspecified Refilled lisinopril 10 mg PO DAILY 90 tabs 3RF
[2024-07-20 15:36] VITALS: BP 106/66; PULSE 84; RESP 16; O2SAT 97; BMI 32.2
--- OUTSIDE RECORDS SUMMARY | 2024-07-20 19:04 | XMS_ITS | Clinical Summary ---
Author Organization [facility] ity Address [address] [place] [address] Care Team Providers Care Travel Physical Therapist Name Role Phone Unavailable Primary Care Provider [...]
--- OUTSIDE RECORDS SUMMARY | 2024-07-20 19:04 | XMS_ITS | Continuity of Care Document ---
Author Name [facility] Organization [facility] Care Team Providers Care Welder Experimental Name Role Phone [facility] Unavailable Unavailable Problems Combined list of problems from Department of Defense and Veterans Affairs facilities. It does not include entries that were removed or entered in error. Problem Status Onset Date Problem Type Date of Resolution Comments Source Anxiety disorder, unspecified Active 04/30/[address] [place] [address] Drug-induced erectile dysfunction Active 04/30/[address] [place] [address] Alcohol Use Disorder, severe, in full remission Active 04/30/[address] [place] [address] inc [facility] Center Insomnia, unspecified Active 04/30/[address] [place], [place] [address] [place] Essential (primary) hypertension Active 04/30/[address] [place] [address] Anxiety disorder, unspecified Active 01/23/[address] [place] [address] Drug-induced erectile dysfunction Active 01/23/[address] [place] [address] Alcohol Use Disorder, severe, in full remission Active 01/23/[address] [place] [address] inc [facility] Center ASSESSMENT, POST DEPLOYMENT, DOCUMENTED ON [id number] ([facility]) Active 08/14/2017 Condition [facility] Encounter for other administrative examinations Active 08/14/2017 Condition [facility] Attention-deficit hyperactivity disorder, combined type Active 08/14/2017 Condition [facility] Low back pain Active 08/14/2017 Condition [facility] ingrowing toenail Inactive 01/19/2016 Condition [facility] Otalgia, right ear Active 07/27/2015 Condition DoD visit for: administrative purpose Inactive 03/03/2013 Condition DoD Anxiety disorder, unspecified Active Condition [address] [place] [address] Alcohol Use Disorder, severe, in full remission Active Condition [address] [place] [address] inc n [place] Drug-induced erectile dysfunction Active Condition [address] [place], [place] [address] [place] Essential (primary) hypertension Active Condition [address] [place], [place] [address] [place] Insomnia, unspecified Active Condition [address] [place], [place] [address] Patient Counseling: Active Condition Do D visit for: services physical Active Condition DoD refractive error Active Condition DoD visit for: services physical accession Active Condition DoD Medications Combined list of outpatient medications from Department of Defense and Veterans Affairs facilities.Medications provided include 1) outpatient medications from the last 15 months, and 2) patient-reported medications. Medication Details Route Status Patient Instructions Prescription Expires Prescription Number Last Dispense Date Ordering Provider Order Date Order Qty Source BUPROPION HCL SR (bupropion HCl), 100 MG, TAB SR 12H, ORAL, [facility] [facility], 100 ea. BOTTLE Active [id number] 2023 30 Pharmac y Data Transac tion Service Facilit y CYCLOBENZAP RINE HCL (cyclobenza shweta HCl), 5 MG, TABLET, ORAL, [employer] 100 ea. BOTTLE Cancele d [id number] : 2023 0 Pharmac y Data Transac tion Service Facilit y CYCLOBENZAP RINE HCL (cyclobenza shweta HCl), 5 MG, TABLET, ORAL, [employer] 100 ea. BOTTLE Active [id number] 2023 60 Pharmac y Data Transac tion Service Facilit y CYCLOBENZAP RINE HCL (cyclobenza shweta HCl), 5 MG, TABLET, ORAL, [employer] 100 ea. BOTTLE Active [id number] 2023 60 Pharmac y Data Transac tion Service Facilit y CYCLOBENZAP RINE HCL (CYCLOBENZA SHWETA HCL), 5MG, TABLET, ORAL, [facility], 1000 ea. BOTTLE Cancele d [id number] : 2023 0 Pharmac y Data Transac tion Service Facilit y ESCITALOPRA M OXALATE (ESCITALOPR AM OXALATE), 20 MG, TABLET, ORAL, TORRENT PHARMAC, 100 ea. BOTTLE Active [id number] 2023 30 Pharmac y Data Transac tion Service Facilit y ESCITALOPRA M OXALATE (ESCITALOPR AM OXALATE), 20 MG, TABLET, ORAL, TORRENT PHARMAC, 100 ea. BOTTLE Active [id number] 2023 30 Pharmac y Data Transac tion Service Facilit y ESCITALOPRA M OXALATE (ESCITALOPR AM OXALATE), 20 MG, TABLET, ORAL, TORRENT PHARMAC, 100 ea. BOTTLE Active [id number] 2023 30 Pharmac y Data Transac tion Service Facilit y ESCITALOPRA M OXALATE (ESCITALOPR AM OXALATE), 5 MG, TABLET, ORAL, TORRENT PHARMAC, 100 ea. BOTTLE Active [id number] 2023 90 Pharmac y Data Transac tion Service Facilit y ESCITALOPRA M OXALATE (ESCITALOPR AM OXALATE), 5 MG, TABLET, ORAL, TORRENT PHARMAC, 100 ea. BOTTLE Active [id number] 2023 90 Pharmac y Data Transac tion Service Facilit y HYDROXYZINE PAMOATE (hydroxyzin e pamoate), 50 MG, CAPSULE, ORAL, AMNEAL PHARMACE, 100 ea. BOTTLE Cancele d [id number] : 2023 0 Pharmac y Data Transac tion Service Facilit y HYDROXYZINE PAMOATE (hydroxyzin e pamoate), 50 MG, CAPSULE, ORAL, AMNEAL PHARMACE, 100 ea. BOTTLE Active [id number] 2023 30 Pharmac y Data Transac tion Service Facilit y HYDROXYZINE PAMOATE (hydroxyzin e pamoate), 50 MG, CAPSULE, ORAL, AMNEAL PHARMACE, 100 ea. BOTTLE Active [id number] 2023 30 Pharmac y Data Transac tion Service Facilit y HYDROXYZINE PAMOATE (hydroxyzin e pamoate), 50 MG, CAPSULE, ORAL, AMNEAL PHARMACE, 100 ea. BOTTLE Active [id number] 2023 30 Pharmac y Data Transac tion Service Facilit y HYDROXYZINE PAMOATE (hydroxyzin e pamoate), 50 MG, CAPSULE, ORAL, AMNEAL PHARMACE, 100 ea. BOTTLE Active [id number] 2023 30 Pharmac y Data Transac tion Service Facilit y MELOXICAM (MELOXICAM) , 15 MG, TABLET, ORAL, CIPLA [employer] INC[employer] 100 ea. BOTTLE Active [id number] 2023 14 Pharmac y Data Transac tion Service Facilit y MELOXICAM (MELOXICAM) , 15 MG, TABLET, ORAL, [employer] 100 ea. BOTTLE Active [id number] 2023 14 Pharmac y Data Transac tion Service Facilit y ONDANSETRON HCL (ONDANSETRO N HCL), 4MG, TABLET, ORAL, Gruvi PHARMA, 30 ea. BOTTLE Active [id number] 2023 15 Pharmac y Data Transac tion Service Facilit y ONDANSETRON ODT (ONDANSETRO N), 4 MG, TAB RAPDIS, ORAL, AUROBINDO PHARM, 30 ea. BLIST PACK Cancele d [id number] : 2023 0 Pharmac y Data Transac tion Service Facilit y PANTOPRAZOL E SODIUM (PANTOPRAZO LE SODIUM), 20 MG, TABLET DR, ORAL, MYLAN, 90 ea. BOTTLE Cancele d [id number] : 2023 0 Pharmac y Data Transac tion Service Facilit y PROPRANOLOL HCL (propranolo l HCl), 20 MG, TABLET, ORAL, AMNEAL PHARMACE, 1000 ea. BOTTLE Cancele d [id number] : 2023 0 Pharmac y Data Transac tion Service Facilit y PROPRANOLOL HCL (propranolo l HCl), 20 MG, TABLET, ORAL, AMNEAL PHARMACE, 1000 ea. BOTTLE Active [id number] 2023 60 Pharmac y Data Transac tion Service Facilit y PROPRANOLOL HCL (propranolo l HCl), 20 MG, TABLET, ORAL, AMNEAL PHARMACE, 1000 ea. BOTTLE Active [id number] 2023 60 Pharmac y Data Transac tion Service Facilit y PROPRANOLOL HCL (propranolo l HCl), 20 MG, TABLET, ORAL, AMNEAL PHARMACE, 1000 ea. BOTTLE Active [id number] 2023 90 Pharmac y Data Transac tion Service Facilit y PROPRANOLOL HCL (propranolo l HCl), 20 MG, TABLET, ORAL, AMNEAL PHARMACE, 1000 ea. BOTTLE Active [id number] 2023 90 Pharmac y Data Transac tion Service Facilit y PROPRANOLOL HCL (propranolo l HCl), 20 MG, TABLET, ORAL, AMNEAL PHARMACE, 1000 ea. BOTTLE Active [id number] 2023 60 Pharmac y Data Transac tion Service Facilit y SILDENAFIL CITRATE (sildenafil citrate), 50 MG, TABLET, ORAL, AMNEAL PHARMACE, 30 ea. BOTTLE Cancele d [id number] : 2023 0 Pharmac y Data Transac tion Service Facilit y SILDENAFIL CITRATE (sildenafil citrate), 50 MG, TABLET, ORAL, AMNEAL PHARMACE, 30 ea. BOTTLE Active [id number] 2023 10 Pharmac y Data Transac tion Service Facilit y SILDENAFIL CITRATE (sildenafil citrate), 50 MG, TABLET, ORAL, AMNEAL PHARMACE, 30 ea. BOTTLE Active [id number] 2023 10 Pharmac y Data Transac tion Service Facilit y SILDENAFIL CITRATE (sildenafil citrate), 50 MG, TABLET, ORAL, AMNEAL PHARMACE, 30 ea. BOTTLE Cancele d [id number] : 2023 0 Pharmac y Data Transac tion Service Facilit y SILDENAFIL CITRATE (sildenafil citrate), 50 MG, TABLET, ORAL, AMNEAL PHARMACE, 30 ea. BOTTLE Active [id number] 2023 10 Pharmac y Data Transac tion Service Facilit y SILDENAFIL CITRATE (sildenafil citrate), 50 MG, TABLET, ORAL, AMNEAL PHARMACE, 30 ea. BOTTLE Active [id number] 2023 10 Pharmac y Data Transac tion Service Facilit y Allergies, Adverse Reactions, Alerts Combined list of allergies from Department of Defense and Veterans Affairs facilities. It does not include entries that were removed or entered in error. Substance Category Reaction Severity Reaction type Status Date Reported Comments Source No Known Allergies Drug allergy (disorder) active 03/02/2013 [facility] Immunizations Combined list of available immunizations from the Department of Defense and Veterans Affairs facilities. Immunization Series Date Given Administered By Site Reaction Lot Number CVX Code Drug Fittings Finisher Status Comments Source tetanus, diphtheria, acellular pertu is 2022 FAHADSURESHZachariah Alexandreul vipul, right (delt oid) [id number] 115 GlaxoSmithKli ne complet ed tetanus, diphtheri a, acellular pertussis 09/30/22 Given [id number]-[id number] F-C-2D [facility]- [place] influenza virus vaccine, inactivated 2021 JOVANDARIUS Alexandreul vipul, left (delt oid) [id number] 150 ID SalesVu Isael complet ed influenza virus vaccine, inactivat ed 04/10/22 Given 0062C-A F-C-2D [facility]- [place] influenza, injectable, quadrivalent- pf 2021 JOYAGARCIA [id number] 150 complet ed Result Comment: Route: Unknown Manufactu rer: OTH (unk) 0062C-A F-C-2D [facility]- [place] influenza, injectable, quadrivalent- pf 2020 [id number] 150 GlaxoSmithKli ne complet ed influenza , injectabl e, quadrival ent-pf 04/09/21 Given Ambulat ory Pharmac y Influenza, injectable, quadrivalent, preservative free 3 2020 [id number] 150 [facility] (SKB) complet ed Influenza , injectabl e, quadrival ent, preservat hussein free DoD COVID Vaccine Pfizer 2020 [id number] 208 PFIZER complet ed COVID Vaccine Pfizer 03/01/21 Given Ambulat ory Pharmac y SARS-COV-2 (COVID-19) vaccine, mRNA, spike protein, LNP, preservative free, 30 mcg/0.3mL dose 2 2020 [id number] 208 Pfizer, Inc (PFR) complet ed SARS-COV- 2 (COVID-19 ) vaccine, mRNA, spike protein, LNP, preservat hussein free, 30 mcg/0.3mL dose DoD COVID Vaccine Pfizer 2020 [id number] 208 PFIZER complet ed COVID Vaccine Pfizer 02/08/21 Given Ambulat ory Pharmac y SARS-COV-2 (COVID-19) vaccine, mRNA, spike protein, LNP, preservative free, 30 mcg/0.3mL dose 1 2020 [id number] 208 Yoopies, Inc (PFR) complet ed SARS-COV- 2 (COVID-19 ) vaccine, mRNA, spike protein, LNP, preservat hussein free, 30 mcg/0.3mL dose DoD influenza, injectable, quadrivalent 2019 [id number] 699 158 Seqirus complet ed influenza , injectabl e, quadrival ent 03/29/20 Given Ambulat ory Pharmac y influenza, injectable, quadrivalent, contains preservative 1 2019 [id number] 699 158 Seqirus (SEQ) complet ed influenza , injectabl e, quadrival ent, contains preservat hussein DoD influenza, injectable, quadrivalent- pf 2018 [id number] 150 Seqirus complet ed influenza , injectabl e, quadrival ent-pf 04/15/19 Given Ambulat ory Pharmac y Influenza, injectable, quadrivalent, preservative free 0 2018 [id number] 601 150 Seqirus (SEQ) complet ed Influenza , injectabl e, quadrival ent, preservat hussein free DoD typhoid Vi capsular polysaccharid e vac 2018 [id number] 101 sanofi pasteur complet ed typhoid Vi capsular polysacch aride vac 09/30/18 Given Ambulat ory Pharmac y anthrax vaccine 2018 [id number] 24 Emergent Biosolutions complet ed anthrax vaccine 09/30/18 Given Ambulat ory Pharmac y anthrax vaccine 4 2018 [id number] 24 [employer] [place] (MIP) complet ed anthrax vaccine DoD typhoid Vi capsular polysaccharid e vaccine 2 2018 [id number] 101 Sanofi Pasteur (PMC) complet ed typhoid Vi capsular polysacch aride vaccine DoD influenza, injectable, quadrivalent- pf 2017 [id number] 150 Seqirus complet ed influenza , injectabl e, quadrival ent-pf 03/11/18 Given Ambulat ory Pharmac y Influenza, injectable, quadrivalent, preservative free 0 2017 [id number] 150 Seqirus (SEQ) comple t ed Influenza , injectabl e, quadrival ent, preservat hussein free DoD Influenza, inj, MDCK, quadrivalent- pf 2016 [id number] 171 Seqirus complet ed Influenza , inj, MDCK, quadrival ent-pf 04/14/17 Given Ambulat ory Pharmac y Influenza, injectable, Madin Ramya Canine Kidney, preservative free, quadrivalent 6 2016 [id number] 171 Seqirus (SEQ) comple t ed Influenza , injectabl e, Madin Ramya Canine Kidney, preservat hussein free, quadrival ent DoD Human Papillomaviru s 9-valent vaccine 2016 [id number] 165 Merck & Company Inc complet ed Human Papilloma virus 9-valent vaccine 08/20/16 Given Ambulat ory Pharmac y Human Papillomaviru s 9-valent vaccine 2 2016 [id number] 165 Merck (MSD) complet ed Human Papilloma virus 9-valent vaccine DoD Human Papillomaviru s 9-valent vaccine 2016 [id number] 165 Merck & Company Inc complet ed Human Papilloma virus 9-valent vaccine 06/21/16 Given Ambulat ory Pharmac y Human Papillomaviru s 9-valent vaccine 1 2016 [id number] 165 Merck (MSD) complet ed Human Papilloma virus 9-valent vaccine DoD influenza, seasonal, injectable-pf 2015 [id number] 140 Seqirus complet ed influenza , seasonal, injectabl e-pf 03/06/16 Given Ambulat ory Pharmac y Influenza, seasonal, injectable, preservative free 0 2015 [id number] 140 Seqirus (SEQ) comple t ed Influenza , seasonal, injectabl e, preservat hussein free DoD anthrax vaccine 2015 [id number] 24 [employer] complet ed anthrax vaccine 01/19/16 Given Ambulat ory Pharmac y anthrax vaccine 3 2015 [id number] 24 [employer] [place] (MIP) complet ed anthrax vaccine DoD anthrax vaccine 2015 [id number] 24 [employer] complet ed anthrax vaccine 08/04/15 Given Ambulat ory Pharmac y anthrax vaccine 2 2015 [id number] 24 [employer] [place] (MIP) complet ed anthrax vaccine DoD typhoid Vi capsular polysaccharid e vac 2015 [id number] 101 sanofi pasteur complet ed typhoid Vi capsular polysacch aride vac 06/28/15 Given Ambulat ory Pharmac y anthrax vaccine 2015 [id number] 24 [employer] complet ed anthrax vaccine 06/28/15 Given Ambulat ory Pharmac y measles/mumps /rubella virus vaccine 2015 [id number] 03 Merck & Company Inc complet ed measles/m umps/rube lla virus vaccine 06/28/15 Given Ambulat ory Pharmac y measles, mumps and rubella virus vaccine 2 2015 [id number] 03 Merck (MSD) complet ed measles, mumps and rubella virus vaccine DoD anthrax vaccine 1 2015 [id number] 24 [employer] [place] (MIP) complet ed anthrax vaccine DoD typhoid Vi capsular polysaccharid e vaccine 1 2015 [id number] 101 Sanofi Pasteur (PMC) complet ed typhoid Vi capsular polysacch aride vaccine DoD influenza, seasonal, injectable-pf 2014 [id number] 140 CSL Behring complet ed influenza , seasonal, injectabl e-pf 02/13/15 Given Ambulat ory Pharmac y Influenza, seasonal, injectable, preservative free 0 2014 [id number] 140 [employer] Inc. (CSL) complet ed Influenza , seasonal, injectabl e, preservat hussein free DoD influenza, live, intranasal,qu adrivalent 2013 [id number] 149 Medimmune Inc comple t ed influenza , live, intranasa l,quadriv alent 03/09/14 Given Ambulat ory Pharmac y influenza, live, intranasal, quadrivalent 1 2013 [id number] 149 MedImmSmartMenu[employer], Inc. (MED) complet ed influenza , live, intranasa l, quadrival ent DoD influenza, live, intranasal,qu adrivalent 2012 [id number] 149 Medimmune Inc comple t ed influenza , live, intranasa l,quadriv alent 03/02/13 Given Ambulat ory Pharmac y hepatitis A-hepatitis B vaccine 2012 [id number] 104 [facility] hepatitis A-hepatit is B vaccine 03/02/13 Given Ambulat ory Pharmac y hepatitis A and hepatitis B vaccine 3 2012 [id number] 104 [facility] (SKB) complet ed hepatitis A and hepatitis B vaccine DoD influenza, live, intranasal, quadrivalent 2 2012 [id number] 149 [employer] Inc. (MED) complet ed influenza , live, intranasa l, quadrival ent DoD hepatitis A-hepatitis B vaccine 2012 [id number] 104 GlaxoSmithKli ne complet ed hepatitis A-hepatit is B vaccine 08/25/12 Given Ambulat ory Pharmac y varicella virus vaccine 2012 [id number] 21 Merck & Company Inc complet ed varicella virus vaccine 08/25/12 Given Ambulat ory Pharmac y varicella virus vaccine 1 2012 [id number] 21 Merck (MSD) complet ed varicella virus vaccine DoD hepatitis A and hepatitis B vaccine 1 2012 [id number] 104 SmithKline (SKB) complet ed hepatitis A and hepatitis B vaccine DoD hepatitis A-hepatitis B vaccine 2012 [id number] 104 GlaxoSmithKli ne complet ed hepatitis A-hepatit is B vaccine 07/08/12 Given Ambulat ory Pharmac y varicella virus vaccine 2012 [id number] 21 Merck & Company Inc complet ed varicella virus vaccine 07/08/12 Given Ambulat ory Pharmac y measles/mumps /rubella virus vaccine 2012 [id number] 03 Merck & Company Inc complet ed measles/m umps/rube lla virus vaccine 07/08/12 Given Ambulat ory Pharmac y measles, mumps and rubella virus vaccine 1 2012 [id number] 03 Merck (MSD) complet ed measles, mumps and rubella virus vaccine DoD varicella virus vaccine 1 2012 [id number] 21 Merck (MSD) complet ed varicella virus vaccine DoD hepatitis A and hepatitis B vaccine 1 2012 [id number] 104 SmithKline (SKB) complet ed hepatitis A and hepatitis B vaccine DoD tuberculin purified protein derivative 2012 [id number] 96 [facility] complet ed tuberculi n purified protein derivativ e 07/03/12 Given Ambulat ory Pharmac y adenovirus vaccine, live 2012 [id number] 5 143 Teva Pharm[employer]ica complet ed adenoviru s vaccine, live 07/03/12 Given Ambulat ory Pharmac y influenza, seasonal, injectable-pf 2012 [id number] 140 CSL Behring complet ed influenza , seasonal, injectabl e-pf 07/03/12 Given Ambulat ory Pharmac y tetanus, diphtheria, acellular pertu is 2012 [id number] 7AA 115 GlaxoSmithKli mo complet ed tetanus, diphtheri a, acellular pertussis 07/03/12 Given Ambulat ory Pharmac y meningococcal A,C,Y,W-135 (MCV4P) 2012 [id number] 114 sanofi pasteur complet ed meningoco ccal A,C,Y,W-1 35 (MCV4P) 07/03/12 Given Ambulat ory Pharmac y poliovirus vaccine, inactivated 2012 [id number] 10 sanofi pasteur complet ed polioviru s vaccine, inactivat ed 07/03/12 Given Ambulat ory Pharmac y poliovirus vaccine, inactivated 1 2012 [id number] 10 Sanofi Pasteur (PMC) complet ed polioviru s vaccine, inactivat ed DoD meningococcal polysaccharid e (groups A, C, Y and W-135) diphtheria toxoid conjugate vaccine (MCV4P) 1 2012 [id number] 114 Sanofi Pasteur (PMC) complet ed meningoco ccal polysacch aride (groups A, C, Y and W-135) diphtheri a toxoid conjugate vaccine (MCV4P) DoD tetanus toxoid, reduced diphtheria toxoid, and acellular pertu is vaccine, adsorbed 1 2012 [id number] 7AA 115 [facility] (SKB) complet ed tetanus toxoid, reduced diphtheri a toxoid, and acellular pertussis vaccine, adsorbed DoD Influenza, seasonal, injectable, preservative free 1 2012 [id number] 140 [employer]. (CSL) complet ed Influenza , seasonal, injectabl e, preservat hussein free DoD Adenovirus, type 4 and type 7, live, oral 1 2012 [id number] 5 143 [facility] (BRR) complet ed Adenoviru s, type 4 and type 7, live, oral DoD rubella virus vaccine 0 2012 06 () Not Given rubella virus vaccine DoD Results Combined list of recent chemistry, hematology and other laboratory results from Department of Defense and Veterans Affairs, ranging from 15 months to all on record, depending upon the facility. Order Name Results Value Reference Range Date Interpretation Specimen Comments Source Chemistry Carbohydra te Deficient Transferri n 0.8 % 0.0 - 1.6 04/23 N Interpretiv e Data: Normal: <1.4% Inconclusiv e: 1.4% to 1.6% Elevated: >1.6% The CDT values > 1.6 % are considered positive and due to chronic alcohol abuse. For a CDT percentage close to the threshold value, it is recommended to analyze the patient clinical data. Hepatic disorders may interfere with the CDT quantificat ion. Heavy alcohol use (defined as >4 or 5 beverages per day for two weeks or more) is commonly associated with elevated CDT levels as are certain liver diseases such as primary biliary cirrhosis and chronic active hepatitis and in some patients with genetic D variants of transferrin . No reference ranges available for pediatric patients. Methodology : Capillary Electrophor esis 5600A- [facility] Toxicolog y Phosphatid ylethanol (PEth).LC Negative 04/23 Result Comment: Analyzed compound: PEth 16:0/18:1. 1-palmitoyl -2-oleoyl-s n-glycero-3 -phosphoeth anol. Analysis performed by Liquid Chromatogra phy with Tandem Mass Spectrometr y (LC/MS/MS). Detection limit: 20 ng/mL PEth levels in excess of 20 ng/mL are considered evidence of moderate to heavy ethanol consumption . However, the Center for Substance Abuse Treatment (CSAT) advises caution in interpretat ion and use of biomarkers alone to assess alcohol use. Results should be interpreted in the context of all available clinical and behavioral information . Reference: Substance Abuse and Mental Health Services Administrat ion (2012). The Role of Biomarkers in the Treatment of Alcohol Use Disorders , 2012 Revision. Advisory, Volume 11, Issue 2. This test was developed and its performance characteris tics determined by [facility]. It has not been cleared or approved by the Food and Drug Administrat counts include 234 beds at the [facility]. Performed At: [facility] [address] [id number] Jey Oreilly [facility] Ph:[phone] 67 -AF -C [facility] Toxicolog y Phosphatid ylethanol. LC Negative 04/23A-AF -C [facility] Chemistry eGFR CKD EPI 104.5 mL/min 02/13 N Interpretiv e Data: Estimated Glomerular Filtration Rate (eGFR) calculated using the 2020 Chronic Kidney Disease-Epi demiology (CKD-EPI) Collaborati on creatinine equation; units of measure are mL/min/1.73 m2. Results are only valid for adults (e18 years) whose serum creatinine is in steady state.? eGFR calculation s are not valid for patients with acute kidney injury and for patients on dialysis. ?Creatinine -based estimates of kidney function may also be inaccurate in patients with reduced creatinine generation due to decreased muscle mass (e.g., malnutritio n, severe hypoalbumin emia, sarcopenia, chronic neuromuscul ar disease, amputations , severe heart failure or liver disease) and in patients with increased creatinine generation due to increased muscle mass (e.g., muscle builders, anabolic steroids) or increased dietary intake. As drug clearance is proportiona l to total GFR and not GFR indexed to body surface area (BSA), in individuals with a BSA substantial ly different than 1.73 m2, drug dosing should be based the reported eGFRvalue de-indexed from BSA by multiplying by the individual s BSA and dividing by 1.73. CKD is diagnosed based on abnormaliti es of kidney structure or function, present for >3 months, with implication s for health and disease. CKD is classified and staged based on cause, eGFR and albuminuria (quantified as urine albumin to creatinine ratio). An eGFR >60 mL/min/1.73 m2 in the absence of increased urine albumin excretion or structural abnormaliti es does not represent CKD.eGFR (mL/min/1.7 3 m2) CKD stage Interpretat ion e90 G1 Normal 60-89 G2 Mild decrease 45-59 G3A Mild to moderate decrease 30-44 G3B Moderate to severe decrease 15-29 G4 Severe decrease <15 G5 Kidney failure 0310A-AF -C- [facility] Chemistry Carbohydra te Deficient Transferri n 0.9 % 0.0 - 1.6 02/13 N Interpretiv e Data: Normal: <1.4% Inconclusiv e: 1.4% to 1.6% Elevated: >1.6% The CDT values > 1.6 % are considered positive and due to chronic alcohol abuse. For a CDT percentage close to the threshold value, it is recommended to analyze the patient clinical data. Hepatic disorders may interfere with the CDT quantificat ion. Heavy alcohol use (defined as >4 or 5 beverages per day for two weeks or more) is commonly associated with elevated CDT levels as are certain liver diseases such as primary biliary cirrhosis and chronic active hepatitis and in some patients with genetic D variants of transferrin . No reference ranges available for pediatric patients. Methodology : Capillary Electrophor esis 5600A- AFSAM EPILAB Toxicolog y Phosphatid ylethanol. LC Negative 02/13A-AF -[facility]- [facility] Toxicolog y Phosphatid ylethanol (PEth).LC Negative 02/13 Result Comment: Analyzed compound: PEth 16:0/18:1. 1-palmitoyl -2-oleoyl-s n-glycero-3 -phosphoeth anol. Analysis performed by Liquid Chromatogra [employer] with Tandem Mass Spectrometr y (LC/MS/MS). Detection limit: 20 ng/mL PEth levels in excess of 20 ng/mL are considered evidence of moderate to heavy ethanol consumption . However, the Center for Substance Abuse Treatment (CSAT) advises caution in interpretat ion and use of biomarkers alone to assess alcohol use. Results should be interpreted in the context of all available clinical and behavioral information . Reference: Substance Abuse and Mental Health Services Administrat ion (2012). The Role of Biomarkers in the Treatment of Alcohol Use Disorders , 2012 Revision. Advisory, Volume 11, Issue 2. This test was developed and its performance characteris tics determined by [employer]. It has not been cleared or approved by the Food and Drug Administrat counts include 234 beds at the [facility]. Performed At: [facility] [address] [id number] Jey Oreilly [facility] Ph:[phone] 67 -AF -C [facility] Indic[facility] Chemistry BUN/Creat Ratio 13 02/13A-AF -C-66 [facility] Ind[facility] Chemistry ALT 24 U/L - 02/13 N 309A-AF -C[facility] BUN 13.0 mg/dL 10.0 - 20.0 02/13 N 309A-AF -C- [facility] Chemistry Albumin 4.50 g/dL 3.70 - 5.00 02/13 N -AF -C- [facility] Chemistry Alk Phos 53 U/L 37 - 121 02/13 N [facility] -C-[facility] Chemistry Potassium Lvl 5.10 mmol/L 3.70 - 4.90 02/13 H -AF -C-[facility] Chemistry Sodium 139.0 mmol/L 136.0 - 145.0 02/13 N [facility] -C-[facility] Chemistry AGAP 10 mmol/L 10 - 20 02/13 N [facility] --[facility] Chemistry Calcium 9.10 mg/dL 8.80 - 10.20 02/[address] [place], [place] [address] Chemistry Chloride 102 mmol/L 97 - 107 02/[address] [place], [place] [address] Chemistry Glucose Lvl 99 mg/dL 70 - 120 02/13 N Interpretiv e Data: According to the [place] [employer] consider the following when reviewing Fasting Glucose levels: Normal less than 100 mg/dL Prediabetes 100mg/dL to 125 mg/dL Diabetes 126 mg/dL or higher [facility] -- [facility] Chemistry CO2 32.0 mmol/L 22.0 - 30.0 02/13 H 309 --[facility] Chemistry Creatinine Level 1.00 mg/dL 0.50 - 1.10 02/13 N [facility] -[facility] Chemistry Protein Total 7.0 mg/dL 6.2 - 8.3 02/13 N [facility] -[facility] Chemistry A/G Ratio 2 meq/L 02/13[facility] Chemistry AST 20 U/L 10 - 59 02/13 N [facility] -[facility] Chemistry Bilirubin Total 0.40 mg/dL 0.20 - 1.20 02/13 N 0A-AF -C-66th [facility] [employer] Toxicolog y Phosphatid ylethanol (PEth).LC 43 ng/mL 11/14 Result Comment: Analyzed compound: PEth 16:0/18:1. 1-palmitoyl -2-oleoyl-s n-glycero-3 -phosphoeth anol. Analysis performed by Liquid Chromatogra phy with Tandem Mass Spectrometr y (LC/MS/MS). Detection limit: 20 ng/mL PEth levels in excess of 20 ng/mL are considered evidence of moderate to heavy ethanol consumption . However, the Center for Substance Abuse Treatment (CSAT) advises caution in interpretat ion and use of biomarkers alone to assess alcohol use. Results should be interpreted in the context of all available clinical and behavioral information . Reference: Substance Abuse and Mental Health Services Administrat ion (2012). The Role of Biomarkers in the Treatment of Alcohol Use Disorders , 2012 Revision. Advisory, Volume 11, Issue 2. This test was developed and its performance characteris tics determined by [employer]. It has not been cleared or approved by the Food and Drug Administrat counts include 234 beds at the [facility]. Performed At: [facility] [address] [place] [id number] Jey Ariela J [facility] Ph:[phone] 0310A-AF -C-66 [facility] Indic[facility] Toxicolog y Phosphatid ylethanol. LC Positive 11/14 A 0310A-AF -C-66th [facility] Ind[facility] Infectiou s Disease HIV-1/O/2 Non-Reac tive 14 (11/14/22 8:28 AM) 11/14 N Interpretiv e Data: INTERPRETAT ION: This method is a screening procedure for the detection of HIV p24 Antigen and Antibodies to HIV-1, including Group O, and/or HIV-2. NON-REACTIV E: HIV-1 antigen and HIV-1 / HIV-2 antibodies were not detected. No laboratory evidence of HIV infection. A negative test result does not exclude the possibility of exposure to or infection with HIV. HIV antibodies and/or p24 antigen may be undetectabl e in some stages of the infection and in some clinical conditions. If acute HIV infection is suspected, consider submitting another specimen to a reference laboratory for HIV-1 RNA. SCREEN REACTIVE - CONFIRMATIO N TO FOLLOW: Possible presence of HIV-1antibo dies, HIV-2 antibodies and/or HIV-1 p24 antigen. Specimen will reflex to the confirmatio n testing that fulfills the Center for Disease Control and Prevention' s HIV diagnostic algorithm. Refer to [facility] Lab Guide for additional information : https://[employer]. [facility]/ kj/kx5/EPIL ab/Pages/la b_guide.asp x Testing performed by [employer]. 5600A-US [employer] Chemistry Carbohydra te Deficient Transferri n 0.8 % 0.0 - 1.6 11/14 N Interpretiv e Data: Normal: <1.4% Inconclusiv e: 1.4% to 1.6% Elevated: >1.6% The CDT values > 1.6 % are considered positive and due to chronic alcohol abuse. For a CDT percentage close to the threshold value, it is recommended to analyze the patient clinical data. Hepatic disorders may interfere with the CDT quantificat ion. Heavy alcohol use (defined as >4 or 5 beverages per day for two weeks or more) is commonly associated with elevated CDT levels as are certain liver diseases such as primary biliary cirrhosis and chronic active hepatitis and in some patients with genetic D variants of transferrin . No reference ranges available for pediatric patients. Methodology : Capillary Electrophor esis 5600A-US [employer] CDT EPI 6175 1.0 % 10/15 Result Comment: INTERPRETAT ION(S): Normal: <1.4% Inconclusiv e: 1.4% to 1.6% Elevated: >1.6% The CDT values > 1.6 % are considered positive and due to chronic alcohol abuse. For a CDT percentage close to the threshold value, it is recommended to analyze the patient clinical data. Hepatic disorders may interfere with the CDT quantificat ion. Heavy alcohol use (defined as >4 or 5 beverages per day for two weeks or more) is commonly associated with elevated CDT levels as are certain liver diseases such as primary biliary cirrhosis and chronic active hepatitis and in some patients with genetic D variants of transferrin . No reference ranges available for pediatric patients. Methodology : Capillary Electrophor esis Performed by: Epidemiolog y Laboratory Service [facility] [address] [place] [id number] Interpretiv e Data: Normal: <1.4% Inconclusiv e: 1.4% to 1.6% Elevated: >1.6% The CDT values > 1.6 % are considered positive and due to chronic alcohol abuse. For a CDT percentage close to the threshold value, it is recommended to analyze the patient clinical data. Hepatic disorders may interfere with the CDT quantificat ion. Heavy alcohol use (defined as >4 or 5 beverages per day for two weeks or more) is commonly associated with elevated CDT levels as are certain liver diseases such as primary biliary cirrhosis and chronic active hepatitis and in some patients with genetic D variants of transferrin . Methodology : Capillary Electrophor esis Performed by: Epidemiolog y Laboratory Service [facility] [address] [place] [address], [place] [address] 0310A-AF -C- [facility]ic[facility] Chemistry Protein Total 7.4 mg/dL 6.2 - 8.3 10/15 N 0310A-AF -C-66 [facility] Chemistry A/G Ratio 2 meq/L 10/15 0310A-AF -C-66th [facility] Chemistry AST 236 U/L 10 - 59 10/15 H 0310A-AF -C- [facility] Ind[facility] Chemistry CO2 32.0 mmol/L 22.0 - 30.0 10/15 H 0310A-AF -C-66th [facility] Ind[facility] Chemistry Creatinine Level 0.60 mg/dL 0.50 - 1.10 10/15 N 0310A-AF -C-66th [facility] Ind[facility] Chemistry Calcium 9.00 mg/dL 8.80 - 10.20 10/15 N 0310A-AF -C-66th [facility] Indicative [employer] Chemistry Chloride 97 mmol/L 97 - 107 10/15 N 0310A-AF -C-66th [facility] Chemistry Bilirubin Total 1.30 mg/dL 0.20 - 1.20 10/15 H 0310A-AF -C-66th [facility] Ind[facility] Chemistry AGAP 14 mmol/L 10 - 20 10/15 N 0310A-AF -C- [facility] Chemistry BUN 10.0 mg/dL 10.0 - 20.0 10/15 N 0A-AF -C-66 [facility] Chemistry Potassium Lvl 4.60 mmol/L 3.70 - 4.90 10/15 N 0A-AF -C-66 [facility] Chemistry Sodium 138.0 mmol/L 136.0 - 145.0 10/15 N -AF -C-[facility] Chemistry Glucose Lvl 118 mg/dL 70 - 120 10/15 N Interpretiv e Data: According to the [place] [employer] consider the following when reviewing Fasting Glucose levels: Normal less than 100 mg/dL Prediabetes 100mg/dL to 125 mg/dL Diabetes 126 mg/dL or higher 309 -C [facility] Chemistry Alk Phos 55 U/L 37 - 121 10/15 N A-AF -C-66[facility] Chemistry Albumin 4.90 g/dL 3.70 - 5.00 10/15 N 031A-AF -C-66[facility] Chemistry BUN/Creat Ratio 17 10/15-AF -C-66[facility] Chemistry ALT 318 U/L 13 - 69 10/15 H 0A-AF -C [facility] Ind[facility] Toxicolog y U Benzodia Scrn Negative 1 (10/15/22 11:10 AM) 10/15 N Interpretiv e Data: Test Cut-off Concentrati ons Benzodiazep ine - 100 ng/mL These results are intented for medical treatment only, not employment or legal testing. This is not to be used for Therapeutic monitoring. 0117A-AF -ASU-59t h DIAMOND-ADOLPH [place] Toxicolog y U Tracey Scrn Negative 6 (10/15/22 11:10 AM) 10/15 N Interpretiv e Data: Test Cut-off Concentrati ons Barbiturate s - 200 ng/mL These results are intented for medical treatment only, not employment or legal testing. This is not to be used for Therapeutic monitoring. 0117A-AF -ASU-59t h MDW-WHAS [facility] Toxicolog y U Amphet/Met hamphet Negative 17 (10/15/22 11:10 AM) 10/15 N Interpretiv e Data: Test Cut-off Concentrati ons Amphetamine s/Methamphe tamines - 500 ng/mL These results are intented for medical treatment only, not employment or legal testing. This is not to be used for Therapeutic monitoring. 0117A-AF -ASU-59t h MDW-WHAS [place] Toxicolog y U PCP Scrn Negative 5 (10/15/22 11:10 AM) 10/15 N Interpretiv e Data: Test Cut-off Concentrati ons Phencyclidi ne (PCP) - 25 ng/mL These results are intented for medical treatment only, not employment or legal testing. This is not to be used for Therapeutic monitoring. 0117A-AF -ASU-59t h MDW-WHAS [place] Toxicolog y U Methadone Scrn Negative 2 (10/15/22 11:10 AM) 10/15 N Interpretiv e Data: Test Cut-off Concentrati ons Methadone - 300 ng/mL These results are intented for medical treatment only, not employment or legal testing. This is not to be used for Therapeutic monitoring. 0117A-AF -ASU-59t h MDW-WHAS [place] Toxicolog y U Opiate Scrn Negative 4 (10/15/22 11:10 AM) 10/15 N Interpretiv e Data: Test Cut-off Concentrati ons Opiate - 300 ng/mL These results are intented for medical treatment only, not employment or legal testing. This is not to be used for Therapeutic monitoring. 0117A-AF -ASU-59t h MDW-WHAS [place] Toxicolog y U Cocaine Scrn Negative 3 (10/15/22 11:10 AM) 10/15 N Interpretiv e Data: Test Cut-off Concentrati ons Cocaine - 300 ng/mL These results are intented for medical treatment only, not employment or legal testing. This is not to be used for Therapeutic monitoring. 0117A-AF -ASU-59t h MDW-WHAS [place] Toxicolog y U Cannab Scrn Negative 7 (10/15/22 11:10 AM) 10/15 N Interpretiv e Data: Test Cut-off Concentrati ons Cannabinoid s (THC) - 50 ng/mL These results are intented for medical treatment only, not employment or legal testing. This is not to be used for Therapeutic monitoring. 0117A-AF -ASU-59t h MDW-AS [place] Toxicolog y U Propoxyphe ne Negative 10 (10/15/22 11:10 AM) 10/15 N Interpretiv e Data: Test Cut-off Concentrati ons Propoxyphen e - 300 ng/mL These results are intented for medical treatment only, not employment or legal testing. This is not to be used for Therapeutic monitoring. 0117A-AF -ASU-59t h MDW-WHVICTOR M [facility]-[place] Infectiou s Disease HIV-1/O/2. EPI NON-REAC TIVE 10/15 Result Comment: INTERPRETAT ION(S): This method is a screening procedure for the detection of HIV p24 Antigen and Antibodies to HIV-1, including Group O, and/or HIV-2. NON-REACTIV E: HIV-1 antigen and HIV-1 / HIV-2 antibodies were not detected. No laboratory evidence of HIV infection. A negative test result does not exclude the possibility of exposure to or infection with HIV. HIV antibodies and/or p24 antigen may be undetectabl e in some stages of the infection and in some clinical conditions. If acute HIV infection is suspected, consider submitting another specimen to a reference laboratory for HIV-1 RNA. SCREEN REACTIVE - CONFIRMATIO N TO FOLLOW: Possible presence of HIV-1 antibodies, HIV-2 antibodies and/or HIV-1 p24 antigen. Specimen will reflex to the confirmatio n testing that fulfills the Center for Disease Control and Prevention' s HIV diagnostic algorithm. Refer to [facility] Lab Guide for additional information : [email or web address]://[email or web address]. [place]/ kj/kx5/EPIL ab/Pages/la b_guide.asp x Testing performed by Omar coyne. Performed by: Epidemiolog y Laboratory Service [facility] [address] [place] [address], [place] [address] 0310A-AF -C [facility] Toxicolog y Phosphatid ylethanol (PEth).LC 469 ng/mL 10/15 Result Comment: Analyzed compound: PEth 16:0/18:1. 1-palmitoyl -2-oleoyl-s n-glycero-3 -phosphoeth anol. Analysis performed by Liquid Chromatogra phy with Tandem Mass Spectrometr y (LC/MS/MS). Detection limit: 20 ng/mL PEth levels in excess of 20 ng/mL are considered evidence of moderate to heavy ethanol consumption . However, the Center for Substance Abuse Treatment (CSAT) advises caution in interpretat ion and use of biomarkers alone to assess alcohol use. Results should be interpreted in the context of all available clinical and behavioral information . Reference: Substance Abuse and Mental Health Services Administrat ion (2012). The Role of Biomarkers in the Treatment of Alcohol Use Disorders , 2012 Revision. Advisory, Volume 11, Issue 2. This test was developed and its performance characteris tics determined by [employer]. It has not been cleared or approved by the Food and Drug Administrat counts include 234 beds at the [facility]. Performed At: [facility] [address] [id number] Jey Oreilly [facility] Ph:[phone] 67 -AF -C [facility] Indicative [facility] Toxicolog y Phosphatid ylethanol. LC Positive 10/15 A 0A-AF -C- [facility] Indic[facility] Chemistry eGFR CKD EPI 134.0 mL/min 10/15 N Interpretiv e Data: Estimated Glomerular Filtration Rate (eGFR) calculated using the 2020 Chronic Kidney Disease-Epi demiology (CKD-EPI) Collaborati on creatinine equation; units of measure are mL/min/1.73 m2. Results are only valid for adults (e18 years) whose serum creatinine is in steady state.? eGFR calculation s are not valid for patients with acute kidney injury and for patients on dialysis. ?Creatinine -based estimates of kidney function may also be inaccurate in patients with reduced creatinine generation due to decreased muscle mass (e.g., malnutritio n, severe hypoalbumin emia, sarcopenia, chronic neuromuscul ar disease, amputations , severe heart failure or liver disease) and in patients with increased creatinine generation due to increased muscle mass (e.g., muscle builders, anabolic steroids) or increased dietary intake. As drug clearance is proportiona l to total GFR and not GFR indexed to body surface area (BSA), in individuals with a BSA substantial ly different than 1.73 m2, drug dosing should be based the reported eGFRvalue de-indexed from BSA by multiplying by the individual s BSA and dividing by 1.73. CKD is diagnosed based on abnormaliti es of kidney structure or function, present for >3 months, with implication s for health and disease. CKD is classified and staged based on cause, eGFR and albuminuria (quantified as urine albumin to creatinine ratio). An eGFR >60 mL/min/1.73 m2 in the absence of increased urine albumin excretion or structural abnormaliti es does not represent CKD.eGFR (mL/min/1.7 3 m2) CKD stage Interpretat ion e90 G1 Normal 60-89 G2 Mild decrease 45-59 G3A Mild to moderate decrease 30-44 G3B Moderate to severe decrease 15-29 G4 Severe decrease <15 G5 Kidney failure 0310A-AF -C-[facility]th [facility] Disease HIV-1/O/2. EPI NON-REAC TIVE 06/03 Result Comment: INTERPRETAT ION(S): This method is a screening procedure for the detection of HIV p24 Antigen and Antibodies to HIV-1, including Group O, and/or HIV-2. NON-REACTIV E: HIV-1 antigen and HIV-1 / HIV-2 antibodies were not detected. No laboratory evidence of HIV infection. A negative test result does not exclude the possibility of exposure to or infection with HIV. HIV antibodies and/or p24 antigen may be undetectabl e in some stages of the infection and in some clinical conditions. If acute HIV infection is suspected, consider submitting another specimen to a reference laboratory for HIV-1 RNA. SCREEN REACTIVE - CONFIRMATIO N TO FOLLOW: Possible presence of HIV-1 antibodies, HIV-2 antibodies and/or HIV-1 p24 antigen. Specimen will reflex to the confirmatio n testing that fulfills the Center for Disease Control and Prevention' s HIV diagnostic algorithm. Refer to [facility] Lab Guide for additional information : https://[employer]. [place]/ kj/kx5/EPIL ab/Pages/la b_guide.asp x Testing performed by Omar coyne. Performed by: [facility]emiolog [facility] [address] [place] [address], [place] [address] 0062A-AF -C-2D [facility] [employer]ir[employer]outs Repository Sample.EPI RECEIVED 06/03 Result Comment: INTERPRETAT ION(S): Performed by: Epidemiolog y Laboratory Service [facility] [address] [facility] [address] [place] [address], [place] [address] 0062A-AF -C-2D [facility] [place] Vital Signs Combined list of inpatient and outpatient Vital Signs from Department of Defense and Veterans Affairs, ranging from 12 months to all on record, depending upon the facility. Vital Sign Value Date Comments Source Systolic Blood Pressure 142 mm[Hg] 03/26/2023 20:33:[address] [place] [address] Diastolic Blood Pressure 88 mm[Hg] 03/26/2023 20:33:[address] [place] [address] Mean Arterial Pressure, Calc 106 mm[Hg] 03/26/2023 20:33:[address] [place] [address] Peripheral Pulse Rate 76 bpm 03/26/2023 20:33:[address] [place] [address] Blood Pressure Manual Automatic 10/01/2022 16:54:00 8110J-NP-P-2D [facility] BP Site Left arm 10/01/2022 16:54:00 0062C -AF-C-2D [facility] Peripheral Pulse Rate 94 bpm 10/01/2022 16:54:00 3977J-NI-Q-2D [facility] Temperature Oral 36.6 Carina 10/01/2022 16:54:00 3453R-YO-L-2D [facility] Mean Arterial Pressure, Calc 110 mm[Hg] 10/01/2022 16:54:00 1493W-YX-U-2 D [facility] Systolic Blood Pressure 137 mm[Hg] 10/01/2022 16:54:00 3114I-FS-W-2D [facility] Diastolic Blood Pressure 97 mm[Hg] 10/01/2022 16:54:00 6555Y-RC-L-2D [facility] Respiratory Rate 16 br/min 10/01/2022 16:54:00 7007W-SR-R-2D [facility] Encounters Combined list of: 1) Encounters from Department of Veterans Affairs facilities going backup to the last 18 months, not all VA inpatient encounters are included; 2) Encounters from the Department of Defense facilities going backup to 280 months. Location Location Details Encounter Type Encounter Number Reason For Visit Attending Provider ADM Date DC Date Status Disposition Source [place] [address](Opt ometry Clinic [facility]) OUTPATIENT [id number] MARGIE WILLIS 07/07 Released w/o Limitations [facility] [place] [address](O ptometr y Clinic [facility]MT [facility]) [facility] Health Assessmen ts) OUTPATIENT [id number] Notes Entered by: Gene HOSKINS 02 Mar 2013 0901 ------- ------- ------- ------- -- PHA DAVIE HOSKINS V 03/02 Released w/o Limitations [facility] [employer](2MD G [facility] [employer]) TELE CONSULT [id number] Notes Entered by: Zachariah BARTH 02 Mar 2013 1127 ------- ------- ------- ------- -- Pha part 2 needed no appts availab le at time of call request MICHAEL Smith 03/02 Referred for Appointment [employer](2 MDG [facility] [facility]) [employer](2MD G [facility] [employer]) OUTPATIENT [id number] PHA 2 ONEAL DE LEON 03/30 Released w/o Limitations [employer](2 MDG [facility] [employer]) [facility] [place]) TELE CONSULT [id number] Notes Entered by: Natasha ARCEO 18 Mar 2014 1334 ------- ------- ------- ------- -- PHA PLEASE SIGN BY 25 MAR 2014 ONEAL DE LEON 03/18 [employer]([facility]) [employer]([facility]) OUTPATIENT [id number] eye exam RASHAWN FORTUNE 05/10 Released w/o Limitations [employer](O ptometr y Clinic) [employer]([facility]) TELE CONSULT [id number] Notes Entered by: PAULINO SPAULDING 11 Apr 2015 0818 ------- ------- ------- ------- -- PHA PLEASE SIGN BY 24 DUNCAN DODSON 04/11 [employer]([facility]) [employer]([facility]men ts) OUTPATIENT [id number] Notes Entered by: Alfredo DE LEON 04 Jul 2015 1337 ------- ------- ------- ------- -- DHA 1 ONEAL DE LEON 07/04 Released w/o Limitations [employer](Alfredo eployme Health Assess ents) [employer]([facility]) OUTPATIENT [id number] PRIYA TERRELL 07/05 Released w/o Limitations [employer]([facility]) [employer](2MD G [facility] [place] [facility]) TELE CONSULT [id number] Notes Entered by: Salbador QUILES 27 Jul 2015 0717 ------- ------- ------- ------- -- Triage SUE BLACKMON 07/26 Released to Self Care [employer](2 MDG [facility] [place]) [employer](2[facility] [employer] [facility]) TELE CONSULT [id number] Notes Entered by: Kole TOMLIN 28 Jul 2015 0821 ------- ------- ------- ------- -- Triage SUE BLACKMON 07/27 Referred for Appointment [employer](2 [facility] [place]) [employer](2[facility] [place] [facility]) OUTPATIENT [id number] F/u from [facility] right ear pain EBEN STEWART Josi 07/30 Released w/o Limitations [employer](2 MDG [facility] Peavitaly ker) [employer](2[facility] G [facility] Riccardo r) TELE CONSULT [id number] Notes Entered by: JENNIFER MORALES 01 Aug 2015 0919 ------- ------- ------- ------- -- Network Results - Urgent Care (otitis media) 6 JUAN LUISMARCIA DUNCAN Gene 07/31 [employer](2 [facility] Stacey patten) [employer](LYLA Apple ) OUTPATIENT [id number] Notes Entered by: NHUNG PHAM 07 Aug 2015 0908 ------- ------- ------- ------- -- Annual Hearing exam VÍCTOR BADILLO 08/06 Released w/o Limitations [employer](Axel menjivar) [employer]([facility]) OUTPATIENT [id number] RTN/Dep duncan in August MARIYA COTTON I 08/09 Released w/o Limitations [employer](O ptometr y Clinic) [facility] Facility OUTPATIENT [id number] 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 01/18 Released w/o Limitations [facility] OUTPATIENT [id number] 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 01/18 Released w/o Limitations Theater Facilit y [employer](LY[facility] ) OUTPATIENT [id number] Notes Entered by: NHUNG PHAM 07 Jun 2016 0924 ------- ------- ------- ------- -- Annual Hearing Exam VÍCTOR BADILLO 06/07 Released w/o Limitations [employer](Axel menjivar) [employer](Dep loyment Health Assessmen ts) OUTPATIENT [id number] [facility] # 3 GAB MENDIETA 06/25 Released w/o Limitations [employer](Alfredo paul nt Health Assessm ents) [employer](2MD G [facility] [employer] [facility]) OUTPATIENT [id number] cough/c ongesti on STUESSY, DUNCAN L 06/26 Released w/o Limitations [employer](2 MDG [facility] [place]ma ker) [employer](Bas e Operation al Medicine Cell) OUTPATIENT [id number] Notes Entered by: LES MOSER 09 Jul 2016 1427 ------- ------- ------- ------- -- TRI-SER VICE PHA STUESMARCIA, DUNCAN L 07/09 Released w/o Limitations [employer](B ase Operati onal Medicin e Cell) [employer](2[facility] G [facility] [place] [facility]) OUTPATIENT [id number] check upfor back pain NERY CALDERON 07/10 Released w/o Limitations [employer](2 [facility] [place]) [employer]([facility]) OUTPATIENT [id number] EYE EXAM GISELLA RIVERA 01/07 Released w/o Limitations [employer]([facility] ptometr y Clinic) [employer]([facility]) OUTPATIENT [id number] DFE GISELLA RIVERA 01/09 Released w/o Limitations [employer]([facility] ptometr y Clinic) [employer](Bas e Operation al Medicine Cell) TELE CONSULT [id number] Notes Entered by: Denilson MERA 23 Jul 2017 1054 ------- ------- ------- ------- -- PHA SOL Upton 07/23 [employer](B ase Operati onal Medicin e Cell) [employer](2[facility] G [facility] [place]) OUTPATIENT [id number] [facility]- # 4/MHA/P BOONE DIEGO PP 08/14 Released w/o Limitations [employer](2 [facility] [place]) [employer]([facility] ) OUTPATIENT [id number] Notes Entered by: NHUNG PHAM 25 Aug 2017 1403 ------- ------- ------- ------- -- Annual Hearing exam VÍCTOR BADILLO 08/25 Released w/o Limitations [employer](F MARIA ANTONIA menjivar) [employer]([facility]) OUTPATIENT [id number] CINDY GUTIERREZ 09/10 Released w/o Limitations [employer]([facility]) [employer](2[facility] [place]) OUTPATIENT [id number] MEDICAT ION CONSULT /REFERR BOONE [address] PP 09/30 Released w/o Limitations [employer](2 [facility] [place] [facility]) [employer](2[facility] [place]) TELE CONSULT [id number] Notes Entered by: GERMAIN BARTON 22 Dec 2017 1625 ------- ------- ------- ------- -- #al- VV APPT REQUEST MEREDITH BRAXTON 12/22 Referred for Appointment [employer](2 [facility] [place]) [employer](2[facility] [place]) OUTPATIENT [id number] VV-[id number] [phone]-Add erall Refill (EKG complet ed 018) BOONE FERNÁNDEZ PP 12/23 Released w/o Limitations [employer](2 [facility] [place] [facility]) [employer]([facility]) OUTPATIENT [id number] Refract ion Check for Specs. NERY Jan 09, ALEJANDRO Tirado 03/09 Released w/o Limitations [employer](O ptometr y Clinic) [employer](Fam landry Medicine Clinic Team-B) OUTPATIENT [id number] Notes Entered by: CHAN BIRD 16 Mar 2018 0939 ------- ------- ------- ------- -- MOHAN Powers 03/16 Released w/o Limitations [employer](F amily Medicin e Clinic Team-B) [employer](2[facility] [place]) OUTPATIENT [id number] f/u anxiety ROSALIA ARELLANO 03/30 Released w/o Limitations [employer](2 MDG [facility] Elviscema ker) [employer](Int egrated [facility]) OUTPATIENT [id number] follow up for medicat ion trial VÍCTOR SHELTON 04/20 Released w/o Limitations [employer](I ntegrat [facility]) [employer](FBB Zachariah Apple ) OUTPATIENT [id number] Notes Entered by: NHUNG PHAM 02 Jul 2018 0913 ------- ------- ------- ------- -- Annual Hearing exam VÍCTOR BADILLO 07/02 Released w/o Limitations [employer] [employer](2[facility] [place]) OUTPATIENT [id number] EAR PAIN ROSALIA ARELLANO 07/22 Released w/o Limitations [employer](2 MD[facility] Carmelinama ker) [employer](2[facility] [place]) TELE CONSULT [id number] Notes Entered by: NICOLÁS MAIN 09 Sep 2018 1140 ------- ------- ------- ------- -- ROUTINE PHAQ PUSHPA EDWARDS 09/09 Released to Self Care [employer](2 MD[facility] Elviscema ker) [employer](Bas e Operation al Medicine Cell) OUTPATIENT [id number] Notes Entered by: NICHELLE CHAUDHRY 30 Sep 2018 1517 ------- ------- ------- ------- -- deploym ent ARACELI Loera 09/30 Released w/o Limitations [employer](B ase Operati onal Medicin e Cell) [employer](Dep [facility] Health Assessmen ts) OUTPATIENT [id number] F2F MARCELINO MELO 02/11 Released w/o Limitations [employer](D eployme Health Assessm ents) [employer](2[facility] G [facility] Peavitalyjeremie r) OUTPATIENT [id number] NEEDS:M ED:GRISEL YOUNGER:S HORT:NO FARSHAD:DE PLOYMEN T:ANXIE TY:ADD: REFERED :BY:PCM :PAM KING 02/15 Released w/o Limitations [employer](2 MDG [facility] [place]fordfl ker) [employer]([facility]) OUTPATIENT [id number] Notes Entered by: NUBIA NGUYEN 15 Feb 2019 1414 ------- ------- ------- ------- -- JAMEEL DEPLOY ENT NISA NOLASCO 02/15 Released w/o Limitations [employer]([facility]) [employer](Nmi t Surgeons Office) OUTPATIENT [id number] SHANTE ZIEGLER 04/15 Released w/o Limitations [employer](F light Surgeon s Office) [employer](War rior Operation al Medicine) OUTPATIENT [id number] Notes Entered by: CHAN BIRD 31 May 2019 1102 ------- ------- ------- ------- -- 72 HR QUARTER S LORRI SMART 05/31 Sick at Home/Quarter s [employer](W arrior Operati onal Medicin e) [employer](War rior Operation al Medicine) TELE CONSULT [id number] 1 Notes Entered by: FABIANA DURAN 04 Jun 2019 0929 ------- ------- ------- ------- -- Network Results -[facility] (DOS 020) STEPHEN BEAR 06/04 [employer](W arrior Operati onal Medicin e) [employer](LYLA [facility] ) OUTPATIENT [id number] Notes Entered by: NHUNG PHAM 20 Jul 2019 0845 ------- ------- ------- ------- -- Annual Hearing exam ADRIANASHIRLEY PARRISHAlberto Prater 07/20 Released w/o Limitations [employer](Axel Harris tiara) [employer](Dep loyment Health Assessmen ts) OUTPATIENT [id number] vv [id number] [id number] GAB MENDIETA 08/15 Released w/o Limitations [employer](D eployme nt Health Assessm ents) [employer](Dep loyment Health Assessmen ts) OUTPATIENT [id number] 7 VV DRHA4/P RIBERA/MHA @[phone] GAB MENDIETA 11/24 Released w/o Limitations [employer](D eployme nt Health Assessm ents) [employer](Dep loyment Health Assessmen ts) OUTPATIENT [id number] 1 PHA RECORD REVIEW- 11/24 GAB MENDIETA 12/02 Released w/o Limitations [employer](D eployme nt Health Assessm ents) [employer](Int egrated Behaviora l Health) OUTPATIENT [id number] New Patient ; VV# KEELEY JEAN 01/10 Released w/o Limitations [employer](I ntegrat ed Behavio ral Health) [employer](Int egrated Behaviora l Health) TELE CONSULT [id number] Notes Entered by: KEELEY JEAN 11 Jan 2020 1028 ------- ------- ------- ------- -- [facility] referra TANNER Pena 01/10 [employer](I ntegrat ed Behavio ral Health) [employer](War rior Operation al Medicine) TELE CONSULT [id number] Notes Entered by: VEL ANDERSON 14 Jun 2020 1500 ------- ------- ------- ------- -- #AL: SUSAN Jesus 06/14 Other Not Elsewhere Classified [employer](W arrior Operati onal Medicin e) [employer](Joselyn arroyo Line) OUTPATIENT [id number] PCR sx's. positiv e for COVID and FLU KRISTOPHER LARSON 06/14 Released w/o Limitations [employer](Ankita henrying Line) [employer](FBYissel Zachariah Apple ) OUTPATIENT [id number] 5 Annual Exam WPID 101A VÍCTOR BADILLO 08/08 Released w/o Limitations [employer](F BBA Steven tiara) [employer](War rior Operation al Medicine) OUTPATIENT [id number] 3 Consult for anxiety ; VV # [phone] KRISTOPHER LARSON 09/26 Released w/o Limitations [employer](W arrior Operati onal Medicin e) [employer](War rior Operation al Medicine) OUTPATIENT [id number] 4 Anxiety ,panic attack issues; VV# KRISTOPHER LARSON 10/03 Released w/o Limitations [employer](W arrior Operati onal Medicin e) [employer](Dep [facility] Health Assessmen ts) OUTPATIENT [id number] 9 VV DRHA-#5 /PHA/ A: CALL: [phone]/ [phone] GAB MENDIETA 12/07 Released w/o Limitations [employer](D eployme Health Assessm ents) [employer](Bas e Operation al Medicine Cell) TELE CONSULT [id number] Notes Entered by: ALECIA MENDIETA 07 Dec 2020 1505 ------- ------- ------- ------- -- Mbr is request ing removal of MR/ profile for anxiety GAB MENDIETA 12/07 [employer](B ase Operati onal Medicin e Cell) [employer](War rior Operation al Medicine) TELE CONSULT [id number] Notes Entered by: VEL ANDERSON 11 Dec 2020 1413 ------- ------- ------- ------- -- #AL: Consult -Medica tion Profile KARI SCHWARZ 12/11 Other Not Elsewhere Classified [employer](W arrior Operati onal Medicin e) [employer](War rior Operation al Medicine) TELE CONSULT [id number] Notes Entered by: ALECIA MENDIETA 12 Dec 2020 1120 ------- ------- ------- ------- -- Mbr is request ing removal of MR/DR profile for anxiety LELAND MENDIETAELLE GALLO 12/12 [employer](W arrior Operati onal Medicin e) [employer](War rior Operation al Medicine) OUTPATIENT [id number] Jameel ce for deploy ent; VV# KRISTOPHER LARSON 12/25 Released w/o Limitations [employer](W arrior Operati onal Medicin e) [employer](Ops urge Multi-Spe cialty Cl) OUTPATIENT [id number] Runny nose, headach e, fatigue , dry mouth; VV# JANETH EZEQUIEL W 01/23 Sick at Home/Quarter s [employer](O psurge Multi-S pecialt y Cl) [employer](Joselyn ting Line) OUTPATIENT [id number] CARIN King 01/23 Sick at Home/Quarter s [employer](T esting Line) [employer](War rior Operation al Medicine) TELE CONSULT [id number] Notes Entered by: VEL ANDERSON 2021 0954 ------- ------- ------- ------- -- #AL: Triage PAULINA SHAH 05/23 Advice Assessment [employer](W arrior Operati onal Medicin e) [employer](Joselyn ting Line) OUTPATIENT [id number] COVID test KRISTOPHER LARSON 05/23 Released w/o Limitations [employer](T esting Line) [id number]-[id number] AMDS Between Visit [id number] 01/21 Discharge Disposition: Home or Self Care 8344R [address] [place] [address] Outpatient [id number] Alcohol depende nce, in remissi on,Anxi ety disorde r, unspeci fied,Dr ppee chase erectil e dysfunc tion [facility] 01/22 Discharge Disposition: Home or Self Care 7379-[address] [facility] 8344R-439 AMDS Between Visit [id number] 03/12 Discharge Disposition: Home or Self Care 8344R [address] [place] [address] Outpatient [id number] Anxiety disorde r, unspeci fied,Dr pepe chase erectil e dysfunc tion,In somnia, unspeci fied,Es sential (primar y) hyperte nsion,A lcohol depende nce, in remissi on [facility] 04/30 Discharge Disposition: Home or Self Care 7379-[facility] 8344R-439 AMDS Between Visit [id number] 07/15 Discharge Disposition: Home or Self Care 83[facility] 39 [facility] Procedures Combined list of: 1) Procedures from Department of Veterans Affairs facilities going back up to thelast 18 months, not all VA non-surgical procedures are included; 2) All procedures from the Department of Defense facilities. Procedure Procedure Type Code Date Perfomer Comments Sourc e No data available for this section Ambulatory Pharmacy THERAPEUTIC, PROPHYLACTIC, OR DIAGNOSTIC INJECTION (SPECIFY SUBSTANCE OR DRUG); SUBCUTANEOUS OR INTRAMUSCULAR 2012 DoD SCREENING TEST OF VISUAL ACUITY, QUANTITATIVE, BILATERAL 2012 DoD TELE ASSESS & MGT SRV PROV QUAL NONPHYS HLTH CARE PRO TO EST PAT,PARENT,GUARD NOT ORIG REL ASSESS & MGT SRV PROV W/IN PREV 7 DAYS NOR LEAD ASSESS & MGT SRV/PX W/IN NXT 24 HR/SOON APT;5-10 MIN MED DIS 2020 DoD PSYCHIATRIC EVALUATION OF HOSPITAL RECORDS, OTHER PSYCHIATRIC REPORTS, PSYCHOMETRIC AND/OR PROJECTIVE TESTS, AND OTHER ACCUMULATED DATA FOR MEDICALDIAGNOSTIC PURPOSES 2020 DoD WAIVER SERVICES; NOT OTHERWISE SPECIFIED (NOS) 2020 DoD BRIEF COMM TECH-BASE SERV,E.G. VIRT CHK-IN,BY PHYS/OTH QUAL HCP,RPT E&M SERV,PROV TO EST PT,NOT ORIG FRM REL E/M SERV PROV W/IN PREV 7DAY NOR LEAD TO E/M SRV/PX W/IN NEXT 24HR/SOON RAH; 5-10 MIN DISC 2020 DoD PSYCHIATRIC EVALUATION OF HOSPITAL RECORDS, OTHER PSYCHIATRIC REPORTS, PSYCHOMETRIC AND/OR PROJECTIVE TESTS, AND OTHER ACCUMULATED DATA FOR MEDICALDIAGNOSTIC PURPOSES 2020 DoD BRIEF COMM TECH-BASE SERV,E.G. VIRT CHK-IN,BY PHYS/OTH QUAL HCP,RPT E&M SERV,PROV TO EST PT,NOT ORIG FRM REL E/M SERV PROV W/IN PREV 7DAY NOR LEAD TO E/M SRV/PX W/IN NEXT 24HR/SOON RAH; 5-10 MIN DISC 2020 DoD BRIEF COMM TECH-BASE SERV,E.G. VIRT CHK-IN,BY PHYS/OTH QUAL HCP,RPT E&M SERV,PROV TO EST PT,NOT ORIG FRM REL E/M SERV PROV W/IN PREV 7DAY NOR LEAD TO E/M SRV/PX W/IN NEXT 24HR/SOON RAH; 5-10 MIN DISC 2020 DoD BRIEF COMM TECH-BASE SERV,E.G. VIRT CHK-IN,BY PHYS/OTH QUAL HCP,RPT E&M SERV,PROV TO EST PT,NOT ORIG FRM REL E/M SERV PROV W/IN PREV 7DAY NOR LEAD TO E/M SRV/PX W/IN NEXT 24HR/SOON RAH; 5-10 MIN DISC 2020 DoD BRIEF EMOTIONAL/BEHAVIORAL ASSESSMENT (EG, DEPRESSION INVENTORY, ATTENTION-DEFICIT/HYPE RACTIVITY DISORDER [ADHD] SCALE), WITH SCORING AND DOCUMENTATION, PER STANDARDIZED INSTRUMENT 2020 DoD BRIEF EMOTIONAL/BEHAVIORAL ASSESSMENT (EG, DEPRESSION INVENTORY, ATTENTION-DEFICIT/HYPE RACTIVITY DISORDER [ADHD] SCALE), WITH SCORING AND DOCUMENTATION, PER STANDARDIZED INSTRUMENT 2020 DoD BRIEF EMOTIONAL/BEHAVIORAL ASSESSMENT (EG, DEPRESSION INVENTORY, ATTENTION-DEFICIT/HYPE RACTIVITY DISORDER [ADHD] SCALE), WITH SCORING AND DOCUMENTATION, PER STANDARDIZED INSTRUMENT 2020 [facility] PATIENT EDUCATION, NOT OTHERWISE CLASSIFIED, NON-PHYSICIAN PROVIDER, INDIVIDUAL, PER SESSION 2020 [facility] BRIEF EMOTIONAL/BEHAVIORAL ASSESSMENT (EG, DEPRESSION INVENTORY, ATTENTION-DEFICIT/HYPE RACTIVITY DISORDER [ADHD] SCALE), WITH SCORING AND DOCUMENTATION, PER STANDARDIZED INSTRUMENT 2020 [facility] BRIEF EMOTIONAL/BEHAVIORAL ASSESSMENT (EG, DEPRESSION INVENTORY, ATTENTION-DEFICIT/HYPE RACTIVITY DISORDER [ADHD] SCALE), WITH SCORING AND DOCUMENTATION, PER STANDARDIZED INSTRUMENT 2020 [facility] TELE ASSESS & MGT SRV PROV QUAL NONPHYS HLTH CARE PRO TO EST PAT,PARENT,GUARD NOT ORIG REL ASSESS & MGT SRV PROV W/IN PREV 7 DAYS NOR LEAD ASSESS & MGT SRV/PX W/IN NXT 24H/SOON APT; 21-30 MIN MED DIS 2020 [facility] ALCOHOL AND/OR SUBSTANCE (OTHER THAN TOBACCO) MISUSE STRUCTURED ASSESSMENT (E.G., AUDIT, DAST), AND BRIEF INTERVENTION 15 TO 30 MINUTES 2020 [facility] PSYCHOTHERAPY, 45 MINUTES WITH PATIENT 2020 DoD WAIVER SERVICES; NOT OTHERWISE SPECIFIED (NOS) 2019 DoD WAIVER SERVICES; NOT OTHERWISE SPECIFIED (NOS) 2019 [facility] BRIEF EMOTIONAL/BEHAVIORAL ASSESSMENT (EG, DEPRESSION INVENTORY, ATTENTION-DEFICIT/HYPE RACTIVITY DISORDER [ADHD] SCALE), WITH SCORING AND DOCUMENTATION, PER STANDARDIZED INSTRUMENT 2019 [facility] BRIEF EMOTIONAL/BEHAVIORAL ASSESSMENT (EG, DEPRESSION INVENTORY, ATTENTION-DEFICIT/HYPE RACTIVITY DISORDER [ADHD] SCALE), WITH SCORING AND DOCUMENTATION, PER STANDARDIZED INSTRUMENT 2019 [facility] GROUP PSYCHOTHERAPY (OTHER THAN OF A MULTIPLE-FAMILY GROUP) 2019 [facility] BRIEF EMOTIONAL/BEHAVIORAL ASSESSMENT (EG, DEPRESSION INVENTORY, ATTENTION-DEFICIT/HYPE RACTIVITY DISORDER [ADHD] SCALE), WITH SCORING AND DOCUMENTATION, PER STANDARDIZED INSTRUMENT 2019 DoD BRIEF EMOTIONAL/BEHAVIORAL ASSESSMENT (EG, DEPRESSION INVENTORY, ATTENTION-DEFICIT/HYPE RACTIVITY DISORDER [ADHD] SCALE), WITH SCORING AND DOCUMENTATION, PER STANDARDIZED INSTRUMENT 2019 DoD BRIEF EMOTIONAL/BEHAVIORAL ASSESSMENT (EG, DEPRESSION INVENTORY, ATTENTION-DEFICIT/HYPE RACTIVITY DISORDER [ADHD] SCALE), WITH SCORING AND DOCUMENTATION, PER STANDARDIZED INSTRUMENT 2019 DoD BRIEF EMOTIONAL/BEHAVIORAL ASSESSMENT (EG, DEPRESSION INVENTORY, ATTENTION-DEFICIT/HYPE RACTIVITY DISORDER [ADHD] SCALE), WITH SCORING AND DOCUMENTATION, PER STANDARDIZED INSTRUMENT 2019 DoD BRIEF EMOTIONAL/BEHAVIORAL ASSESSMENT (EG, DEPRESSION INVENTORY, ATTENTION-DEFICIT/HYPE RACTIVITY DISORDER [ADHD] SCALE), WITH SCORING AND DOCUMENTATION, PER STANDARDIZED INSTRUMENT 2019 DoD BRIEF EMOTIONAL/BEHAVIORAL ASSESSMENT (EG, DEPRESSION INVENTORY, ATTENTION-DEFICIT/HYPE RACTIVITY DISORDER [ADHD] SCALE), WITH SCORING AND DOCUMENTATION, PER STANDARDIZED INSTRUMENT 2019 DoD BRIEF EMOTIONAL/BEHAVIORAL ASSESSMENT (EG, DEPRESSION INVENTORY, ATTENTION-DEFICIT/HYPE RACTIVITY DISORDER [ADHD] SCALE), WITH SCORING AND DOCUMENTATION, PER STANDARDIZED INSTRUMENT 2019 DoD PSYCHOTHERAPY, 60 MINUTES WITH PATIENT 2019 DoD WAIVER SERVICES; NOT OTHERWISE SPECIFIED (NOS) 2019 DoD BRIEF EMOTIONAL/BEHAVIORAL ASSESSMENT (EG, DEPRESSION INVENTORY, ATTENTION-DEFICIT/HYPE RACTIVITY DISORDER [ADHD] SCALE), WITH SCORING AND DOCUMENTATION, PER STANDARDIZED INSTRUMENT 2019 DoD HEALTH BEHAVIOR ASSESSMENT, OR RE-ASSESSMENT (IE, HEALTH-FOCUSED CLINICAL INTERVIEW, BEHAVIORAL OBSERVATIONS, CLINICAL DECISION MAKING) 2019 DoD BRIEF COMM TECH-BASE SERV,E.G. VIRT CHK-IN,BY PHYS/OTH QUAL HCP,RPT E&M SERV,PROV TO EST PT,NOT ORIG FRM REL E/M SERV PROV W/IN PREV 7DAY NOR LEAD TO E/M SRV/PX W/IN NEXT 24HR/SOON RAH; 5-10 MIN DISC 2019 DoD BRIEF COMM TECH-BASE SERV,E.G. VIRT CHK-IN,BY PHYS/OTH QUAL HCP,RPT E&M SERV,PROV TO EST PT,NOT ORIG FRM REL E/M SERV PROV W/IN PREV 7DAY NOR LEAD TO E/M SRV/PX W/IN NEXT 24HR/SOON RAH; 5-10 MIN DISC 2019 DoD PATIENT EDUCATION, NOT OTHERWISE CLASSIFIED, NON-PHYSICIAN PROVIDER, INDIVIDUAL, PER SESSION 2019 [facility] ADMINISTRATION OF PATIENT-FOCUSED HEALTH RISK ASSESSMENT INSTRUMENT (EG, HEALTH HAZARD APPRAISAL) WITH SCORING AND DOCUMENTATION, PER STANDARDIZED INSTRUMENT 2018 DoD PSYCHIATRIC EVALUATION OF HOSPITAL RECORDS, OTHER PSYCHIATRIC REPORTS, PSYCHOMETRIC AND/OR PROJECTIVE TESTS, AND OTHER ACCUMULATED DATA FOR MEDICALDIAGNOSTIC PURPOSES 2018 DoD PSYCHOLOGICAL OR NEUROPSYCHOLOGICAL TEST ADMINISTRATION, WITH SINGLE AUTOMATED, STANDARDIZED INSTRUMENT VIA ELECTRONIC PLATFORM, WITH AUTOMATED RESULT ONLY 2018 DoD PSYCHOLOGICAL OR NEUROPSYCHOLOGICAL TEST ADMINISTRATION, WITH SINGLE AUTOMATED, STANDARDIZED INSTRUMENT VIA ELECTRONIC PLATFORM, WITH AUTOMATED RESULT ONLY 2018 DoD PURE TONE AUDIOMETRY (THRESHOLD), AUTOMATED; AIR ONLY 2018 DoD PSYCHIATRIC EVALUATION OF HOSPITAL RECORDS, OTHER PSYCHIATRIC REPORTS, PSYCHOMETRIC AND/OR PROJECTIVE TESTS, AND OTHER ACCUMULATED DATA FOR MEDICALDIAGNOSTIC PURPOSES 2017 DoD HEALTH&BEHAV ASSESSMENT (EG, HEALTH-FOC CLINICAL INTERVIEW, BEHAVIORAL OBSERVATIONS, PSYCHOPHYSICOLOGICAL MONITOR, HEALTH-ORIENT QUESTIONNAIRES), EA 15 MIN [id number] W THE PATIENT; INIT ASSESSMENT 2017 DoD FITTING OF SPECTACLES, EXCEPT FOR APHAKIA; MONOFOCAL 2017 DoD BRIEF EMOTIONAL/BEHAVIORAL ASSESSMENT (EG, DEPRESSION INVENTORY, ATTENTION-DEFICIT/HYPE RACTIVITY DISORDER [ADHD] SCALE), WITH SCORING AND DOCUMENTATION, PER STANDARDIZED INSTRUMENT 2017 DoD PURE TONE AUDIOMETRY (THRESHOLD), AUTOMATED; AIR ONLY 2017 DoD 12-LEAD ECG PERFORMED (EM) 2017 [facility] OPHTHALMOLOGICAL SERVICES: MEDICAL EXAMINATION AND EVALUATION, WITH INITIATION OR CONTINUATION OF DIAGNOSTIC AND TREATMENT PROGRAM; INTERMEDIATE, ESTABLISHED PATIENT 2016 DoD FITTING OF SPECTACLES, EXCEPT FOR APHAKIA; MONOFOCAL 2016 DoD PURE TONE AUDIOMETRY (THRESHOLD), AUTOMATED; AIR ONLY 2016 DoD FITTING OF SPECTACLES, EXCEPT FOR APHAKIA; MONOFOCAL 2015 DoD PURE TONE AUDIOMETRY (THRESHOLD), AUTOMATED; AIR ONLY 2015 DoD NEUROPSYCHOLOGICAL TESTING (EG, [place] CARD SORTING TEST), ADMINISTERED BY A COMPUTER, WITH QUALIFIED HEALTH SOCIAL SCIENCE ANALYST INTERPRETATION AND REPORT 2015 DoD PURE TONE AUDIOMETRY (THRESHOLD), AUTOMATED; AIR ONLY 2014 DoD FITTING OF SPECTACLES, EXCEPT FOR APHAKIA; MONOFOCAL 2013 DoD PURE TONE AUDIOMETRY (THRESHOLD); AIR ONLY 2012 DoD Ophthalmological New Patient Start Comprehensive Care Ophthalmological New Patient Start Comprehensive Care [id number] 2013 RASHAWN FORTUNE [facility] Screening Test Of Visual Acuity, Quantitative, Bilateral Screening Test Of Visual Acuity, Quantitative, Bilateral [id number] 2012 DAYLIN PISANO [employer] Fitting Monofocal Except For Aphakia Spectacles Services Fitting Monofocal Except For Aphakia 72367 2012 DAYLIN PISANO Psychometric Neuropsych Testing Battery Admin By Computer Psychometric Neuropsych Testing Battery Admin By Computer 51507 2018 ABIGAIL OLIVARES Psychiatric Diagnostic Evaluation Review of Records and Reports Psychiatric Diagnostic Evaluation Review of Records and Reports 19481 2018 ABIGAIL OLIVARES Threshold Audiogram (Pure Tone) Automated Threshold Audiogram (Pure Tone) Automated 0208T 2018 VÍCTOR BADILLO Psychiatric Diagnostic Evaluation Review of Records and Reports Psychiatric Diagnostic Evaluation Review of Records and Reports 93172 2017 NICHOLAS MALHOTRA Health And Behav A e mt Each 15 Min Initial A e ment Health And Behav Assessmt Each 15 Min Initial Assessment [id number] 2017 VÍCTOR SHELTON Psychometric Emotional / Behavioral A e ment Psychometric Emotional / Behavioral Assessment 97864 2017 VÍCTOR SHELTON Determination Of Refractive State Determination Of Refractive State 66620 2017 ALEJANDRO CALLEJAS Spectacles Services Fitting Monofocal Except For Aphakia Spectacles Services Fitting Monofocal Except For Aphakia 37608 2017 ALEJANDRO CALLEJAS Psychometric Emotional / Behavioral A e ment Psychometric Emotional / Behavioral Assessment 33984 2017 CINDY DRUMMOND Preventive Medicine Administration Of Health Risk Questionnaire Patient-Focused Preventive Medicine Administration Of Health Risk Questionnaire Patient-Focused 82336 2017 CINDY DRUMMOND Threshold Audiogram (Pure Tone) Automated Threshold Audiogram (Pure Tone) Automated 0208T 2017 VÍCTOR BADILLO ECG 12-Lead ECG 12-Lead 3120F 2017 BOONE GILBERT Ophthalmological Prior Patient Start Intermediate Level Care Ophthalmological Prior Patient Start Intermediate Level Care 38846 2016 GISELLA RIVERA Spectacles Services Fitting Monofocal Except For Aphakia Spectacles Services Fitting Monofocal Except For Aphakia 98319 2016 GISELLA RIVERA [facility] Determination Of Refractive State Determination Of Refractive State 72175 2016 GISELLA RIVERA Ophthalmological Prior Patient Start Comprehensive Care Ophthalmological Prior Patient Start Comprehensive Care 86110 2016 GISELLA RIVERA [facility] Threshold Audiogram (Pure Tone) Automated Threshold Audiogram (Pure Tone) Automated 0208T 2016 VÍCTOR BADILLO Spectacles Services Fitting Monofocal Except For Aphakia Spectacles Services Fitting Monofocal Except For Aphakia 87353 2015 MARIYA COTTON I [facility] Determination Of Refractive State Determination Of Refractive State 23798 2015 MARIYA COTTON Ophthalmological Prior Patient Start Comprehensive Care Ophthalmological Prior Patient Start Comprehensive Care 03472 2015 MARIYA COTTON Threshold Audiogram (Pure Tone) Automated Threshold Audiogram (Pure Tone) Automated 0208T 2015 VÍCTOR BADILLO [facility] Psychometric Neuropsych Testing Battery Admin By Computer Psychometric Neuropsych Testing Battery Admin By Computer 92441 2015 PRIYA BELTRAN [facility] Spectacles Services Fitting Monofocal Except For Aphakia Spectacles Services Fitting Monofocal Except For Aphakia 18112 2013 RASHAWN FORTUNE [facility] Fundus Photography Fundus Photography 29536 2013 RASHAWN FORTUNE [facility] Determination Of Refractive State Determination Of Refractive State 94829 2013 RASHAWN FORTUNE [facility] Psychiatric Diagnostic Evaluation Review of Records and Reports Psychiatric Diagnostic Evaluation Review of Records and Reports 71308 [facility] Psychometric Neuropsych Testing Battery Admin By Computer Psychometric Neuropsych Testing Battery Admin By Computer 48431 [facility] Psychiatric Diagnostic Evaluation Review of Records and Reports Psychiatric Diagnostic Evaluation Review of Records and Reports 07690 RENNY NGUYEN No provider review required as no history indicated in last 2 years. Member is cleared to Deploy from a perspective . [facility] Internet Med Svc Qual Nonphys Healthcare Prof Up To 7 Days Estab Patient Internet Med Svc Qual Nonphys Healthcare Prof Up To 7 Days Estab Patient 30580 SHANTE ELMORE [facility] Preventive Medicine Administration Of Health Risk Questionnaire Patient-Focused Preventive Medicine Administration Of Health Risk Questionnaire Patient-Focused 84226 ELMORESHANTE JACOBSON [facility] Threshold Audiogram (Pure Tone) Automated Threshold Audiogram (Pure Tone) Automated 0208T VÍCTOR BADILLO Patient education, not otherwise cla ified, non-physician provider, individual, per se VÍCTOR Sullivan [facility] Brief communication technology-based service, e.g. virtual check-in, by a physician or other qualified health care profe sharon who can report evaluation and management services, provided to an established patient, not originating from a related E/M service provided within the previous 7 days nor leading to an E/M service or procedure within the next 24 hours or soonest available appointment; 5-10 minutes of medical discu GAB Maddox [facility] Psychometric Emotional / Behavioral A e ment Psychometric Emotional / Behavioral Assessment 76878 KEELEY JEAN [facility] Waiver services; not otherwise specified (NOS) KEELEY JEAN [facility] Health And Behav A e mt Each 15 Min Initial A e ment Health And Behav Assessmt Each 15 Min Initial Assessment 64033 KEELEY JEAN [facility] Psychotherapy For Crisis Intervention First 60 Minutes Psychotherapy For Crisis Intervention First 60 Minutes [address]493 [place] [facility] Psychiatric Diagnostic Evaluation Psychiatric Diagnostic Evaluation [address]5640 [facility] Psychotherapy Individual Approximately 60 Minutes Psychotherapy Individual Approximately 60 Minutes 65037 [facility] Psychiatric Evaluation Explanation Of Exam Results Psychiatric Evaluation Explanation Of Exam Results 55768 HERNANDO SIMENTAL M [facility] Psychotherapy Individual Approximately 45 Minutes Psychotherapy Individual Approximately 45 Minutes 95647 [facility] Individual Approximately 30 Minutes Psychotherapy Individual Approximately 30 Minutes 23542 [facility] Psychotherapy Group Interactive Psychotherapy Group Interactive 67282 [facility] Psychotherapy Indiv Interactive Approx 45 Minutes Psychotherapy Indiv Interactive Approx 45 Minutes [address]68 [place], HERNANDO [facility] Alcohol and/or substance (other than tobacco) abuse structured a e ment (e.g., audit, DAST), and brief intervention 15 to 30 minutes HERNANDO SIMENTAL M [facility] Non-Physician Phone Call To Pt/Provider Lengthy (21-30 min) Non-Physician Phone Call To Pt/Provider Lengthy (21-30 min) 08859 SUSAN MORENO [facility] Non-Physician Phone Call To Patient/Provider Brief (5-10min) Non-Physician Phone Call To Patient/Provider Brief (5-10min) 08416 FALGUNI PHELPS [facility] Social History Combined list of available smoking, tobacco, and other social history from Department of Defense and Veterans Affairs facilities. Social History Type Response Date Comment [facility] Sex Representation Male 07/04/2021 Unknow n Organization Tobacco Never-cigarette user Cigarette use:. Never-other tobacco user (not cigarettes) Other Tobacco use:. [facility] Pharm[facility] Sexual Orientation Ambula tory Pharmacy Gender identity Ambulator y Pharmacy This section is an empty social history section. DoD Assessment and Plan Combined list of future care activities from Department of Defense and Veterans Affairs facilities (e.g., assessment and plan notes, appointments, orders, and referrals). Additional future care activities may be listed in the Plan of Care section. Result Assessment and Plan Date Source Assessment and Plan Extracted from:Title : BEH *Psychiatrist OP Follow Up Note Author: CHLOÉ LAUREN MD Date: 04/30/2426-Mar-23 Pt was referred for med mgmt for Alcohol Use DO, in early remission, and chronic anxiety and sleep issues that have persisted despite avoiding alcohol for 6 mo and doing well in recovery. ?Pt described panic-like attacks occurring 1-2x per week associated with sudden onset anxiety, tunnel vision, nausea, SOB, and tension. ?Pt denied sense of impending doom, and his worry about attacks and associated impairment is fairly mild. ?He expressed some hesitancy about driving, public places, and social events. ?Pt s father and brother are treated for MAYTE. ?He endorsed generalized symptoms including insomnia, restlessness, fidgetiness, intermittent nausea, and elevated BP; however, he denied excessive worry about multiple life areas, not meeting criteria for MAYTE. Dx of Unspecified Anxiety DO is assigned. ?Pt was agreeable with a trial of Lexapro for anxiety, starting with a low dose given his past adverse reaction to Zoloft. ?Benefit from Wellbutrin is questionable, and it may be contributing to insomnia, so will switch to the SR form and decrease the dose to 200mg. ?Pt will continue PRN hydroxyzine for sleep for now, but will consider alternative if sleep does not improve. ?HTN is inadequately controlled with Propranolol; will plan to switch to a first-line treatment once psychotropics are stable; increasing to 20mg TID in the interim. ?Pt to continue home BP checks. 07-May-23 Anxiety symptoms, avoidant behaviors, insomnia, and functioning have improved significantly with med change. ?Increasing Lexapro to 15mg for residual symptoms and tapering Wellbutrin with goal of stopping. ?BP at home is improving as well, and pt is decreasing Propranolol. ?Pt will continue to monitor BP at home with goal of stopping Propranolol. ?If BP does not continue to improve, may consider switch to a first line antihypertensive. ? 19-Jun-23 Anxiety and overall functioning continue to improve. ?Remains motivated for recovery. ?Ready to stop Wellbutrin. ?Lexapro is working well but he is having side effect of ED. ?Will start trial of Viagra. 21-Aug-23 Pt continues to do well in recovery, and he s functioning well. ?Anxiety has improved, though he continues to have residual symptoms. ?Increasing Lexapro to 20mg. 24-Oct-23 Pt reports anxiety is well managed, he remains active in recovery from alcohol, and is functioning well socially and occupationally. ?No med changes. 23-Jan-24 Anxiety DO and alcohol use DO remain in full remission. ?MAYTE-7 score decreased from 10 to 2. Pt continues to function well and remains stable on medications. ?No med changes. 30-Apr-24 Pt continues to do well in recovery from alcohol. ?Anxiety symptoms are well-managed with current regimen, and he is overall functioning well. ?BP control has worsened, but primary care intake is not scheduled until October. ?Pt was advised he can take up to 80mg of Propranolol a day as needed until he can be seen by primary care. ? ? ? Treatment Plan / Recommendations:?Meds/Labs: ??Continue?Lexapro?20mg daily ??Continue Hydroxyzine 50mg HS PRN sleep ??Continue?Propranolol 20mg?BID-QID PRN anxiety and BP ??Continue Viagra 50mg PRN 1 hr before sexual activity ??Discussed risk, benefits, and alternatives, side effects and any black box warnings of treatment recommendations. Patient understood and agreed with treatment plan and recommendations. ??Psychotherapy:?completed ??Next appointment: ?30-Jul-24 at?1300?ET? via [employer] ? 1.?Alcohol Use Disorder, severe, in full remission ? 2.?Anxiety disorder, unspecified Ordered: escitalopram(Lexapro 20 mg oral tablet), 1 tab(s), Oral, Daily, # 30 tab(s), 2 total refill(s), Maintenance, 1 tab(s) Oral Daily, Pharmacy: [facility]/pharmacy #[id number] [External Rx] propranolol(propranolol 20 mg oral tablet), 1 tab(s), Oral, BID, PRN anxiety, # 60 tab(s), 2 total refill(s), Maintenance, 1 tab(s) Oral BID,PRN:anxiety, Pharmacy: [facility]/pharmacy #[id number] [External Rx] ? 3.?Drug-induced erectile dysfunction Ordered: sildenafil(Viagra 50 mg oral tablet), 1 tab(s), Oral, Daily, 1 hour before sexual activity * max 10 per month*, # 10 tab(s), 5 total refill(s), Maintenance, 1 tab(s) Oral Daily,Instr:1 hour before sexual activity * max 10 per month*, Pharmacy: [facility]/pharmacy #[id number] [External Rx] ? Orders: hydrOXYzine(hydrOXYzine pamoate 50 mg oral capsule), 1 cap(s), Oral, Daily, PRN as needed for anxiety, # 15 cap(s), 2 total refill(s), Maintenance, may sub with tablets, 1 cap(s) Oral Daily,PRN:as needed for anxiety, Pharmacy: [facility]/pharmacy #[id number] [External Rx] Prognosis: Good Benefits, Risks, Alternatives Discussed: Yes Treatment Plan: Continue current medications, Encourage balanced diet, Exercise 4-5 times / week, Practice good sleep hygiene Number of Visits Expected: Ongoing Maintenance Target Symptoms: Anxiety, Insomnia, Substance use Goals of Treatment: Improve overall functioning, Decrease in target symptoms Methods of Monitoring Outcomes: Reduced Audit-C score, Reduced MAYTE-7 score Evaluation Type: By complexity ? Objectives of Treatment #1: Maintain sobriety Goals of Treatment #1: Improve overall functioning Interventions of Treatment #1: Attend [facility]APT OP group; continue psychotherapy Objective #1 Goal Status: Goal met Objective #1 Start Date: 02/12/23 ? ? ? Treatment Planning Requirements: 1) Developed treatment plan collaboratively with patient, with agreement on plan of care and goals, 2) Patient agrees to attend appointments, engage in treatment, discuss any concerns in order to meet treatment goals, 3) Provider will leverage patient strengths and limit potential barriers to treatment Extracted from:Title: BEH *Psychiatrist OP Follow Up Note Author: CHLOÉ LAUREN MD Date: 01/23/2426-Mar-23 Pt was referred for med mgmt for Alcohol Use DO, in early remission, and chronic anxiety and sleep issues that have persisted despite avoiding alcohol for 6 mo and doing well in recovery. ?Pt described panic-like attacks occurring 1-2x per week associated with sudden onset anxiety, tunnel vision, nausea, SOB, and tension. ?Pt denied sense of impending doom, and his worry about attacks and associated impairment is fairly mild. ?He expressed some hesitancy about driving, public places, and social events. ?Pt s father and brother are treated for MAYTE. ?He endorsed generalized symptoms including insomnia, restlessness, fidgetiness, intermittent nausea, and elevated BP; however, he denied excessive worry about multiple life areas, not meeting criteria for MAYTE. Dx of Unspecified Anxiety DO is assigned. ?Pt was agreeable with a trial of Lexapro for anxiety, starting with a low dose given his past adverse reaction to Zoloft. ?Benefit from Wellbutrin is questionable, and it may be contributing to insomnia, so will switch to the SR form and decrease the dose to 200mg. ?Pt will continue PRN hydroxyzine for sleep for now, but will consider alternative if sleep does not improve. ?HTN is inadequately controlled with Propranolol; will plan to switch to a first-line treatment once psychotropics are stable; increasing to 20mg TID in the interim. ?Pt to continue home BP checks. 07-May-23 Anxiety symptoms, avoidant behaviors, insomnia, and functioning have improved significantly with med change. ?Increasing Lexapro to 15mg for residual symptoms and tapering Wellbutrin with goal of stopping. ?BP at home is improving as well, and pt is decreasing Propranolol. ?Pt will continue to monitor BP at home with goal of stopping Propranolol. ?If BP does not continue to improve, may consider switch to a first line antihypertensive. ? 19-Jun-23 Anxiety and overall functioning continue to improve. ?Remains motivated for recovery. ?Ready to stop Wellbutrin. ?Lexapro is working well but he is having side effect of ED. ?Will start trial of Viagra. 21-Aug-23 Pt continues to do well in recovery, and he s functioning well. ?Anxiety has improved, though he continues to have residual symptoms. ?Increasing Lexapro to 20mg. 24-Oct-23 Pt reports anxiety is well managed, he remains active in recovery from alcohol, and is functioning well socially and occupationally. ?No med changes. 23-Jan-24 Anxiety DO and alcohol use DO remain in full remission. ?MAYTE-7 score decreased from 10 to 2. Pt continues to function well and remains stable on medications. ?No med changes. ? ? ? Treatment Plan / Recommendations:?Meds/Labs: ??Continue?Lexapro?20mg daily ??Continue Hydroxyzine 50mg HS PRN sleep ??Continue?Propranolol 20mg?BID PRN anxiety ??Continue Viagra 50mg PRN 1 hr before sexual activity ??Discussed risk, benefits, and alternatives, side effects and any black box warnings of treatment recommendations. Patient understood and agreed with treatment plan and recommendations. ??Psychotherapy:?completed ??Next appointment: ?30-Apr-24 at?1345?ET? via [employer] ? 1.?Alcohol Use Disorder, severe, in full remission 2.?Anxiety disorder, unspecified 3.?Drug-induced erectile dysfunction Orders: escitalopram(Lexapro 20 mg oral tablet), 1 tab(s), Oral, Daily, # 30 tab(s), 2 total refill(s), Maintenance, 1 tab(s) Oral Daily, Pharmacy: [facility]/pharmacy #[id number] [External Rx] propranolol(propranolol 20 mg oral tablet), 1 tab(s), Oral, BID, PRN anxiety, # 60 tab(s), 2 total refill(s), Maintenance, 1 tab(s) Oral BID,PRN:anxiety, Pharmacy: [facility]/pharmacy #[id number] [External Rx] Prognosis: Good Benefits, Risks, Alternatives Discussed: Yes Treatment Plan: Continue current medications, Encourage balanced diet, Exercise 4-5 times / week, Practice good sleep hygiene Number of Visits Expected: Ongoing Maintenance Target Symptoms: Anxiety, Insomnia, Substance use Goals of Treatment: Improve overall functioning, Decrease in target symptoms Methods of Monitoring Outcomes: Reduced Audit-C score, Reduced MAYTE-7 score, Reduced PHQ-9 score Evaluation Type: By complexity ? Objectives of Treatment #1: Maintain sobriety Goals of Treatment #1: Improve overall functioning Interventions of Treatment #1: Attend [facility]APT OP group; continue psychotherapy Objective #1 Goal Status: Goal met Objective #1 Start Date: 02/12/23 ? ? ? Treatment Planning Requirements: 1) Developed treatment plan collaboratively with patient, with agreement on plan of care and goals, 2) Patient agrees to attend appointments, engage in treatment, discuss any concerns in order to meet treatment goals, 3) Provider will leverage patient strengths and limit potential barriers to treatment Extracted from:Title: PHA / MHA / Audio / Optometry Author: OLGA MULTANI Date: 12/18/23 mbr came in for appt Addendum by OSMANI LUGO on December 18, 2023 09:53 EDT History of Refractive Surgery- No?Contact Lenses- N/A?Enrolled in Contact Lens Program- Yes?Gas Mask Inserts ordered- Yes?Current SRX on file- _ DVA (uncorrected) OD: 20/200 OS:?20/200 DVA (Corrected) OD: 20/20 OS: 20/20 NVA (uncorrected) OD: 20/30 OS: 20/30 NVA (Corrected) OD: 20/20 OS: 20/20 Optometry findings meet standards- Yes Addendum by ELIE REINA on December 18, 2023 10:05 EDT ?Vitals: Blood Pressure:??131/80 Heart Rate:68 Height: 180 Weight: 220 BMI: Medications: Propranolol-2022 for anxiety and high bp Hydroxycin 50mg- started 2022- sleep aid lexapro 20mg Chronic Problems: ADHD ADJUSTMENT DISORDER W/ ANXIETY Alcohol dependence, uncomplicated SF 507: _ Comments: None Addendum by THUAN GONZALEZ on December 18, 2023 10:49 EDT Chief Complaint: Member here for annual PHA.?No acute complaints.?IMR?green. HEENT:?Normal Joints:?Normal Lungs:?Normal Heart:?Normal Comments: ANNUAL PERIODIC HEALTH ASSESSMENT I. 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 Last Name: MARLEY 2. First Name: ALBERT 3. Middle Name: TANNER 4. Assessment Date: 5. : 6. Age: 28 7. Gender: M 8. DoD ID Number: [id number] 9. Service Branch: [employer] 10. 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 Status: [employer] [place] 12. Pay Grade: E05 13. Unit Name: [address] 14. Duty Station/Location: [place] 15. UIC: [id number] 16. Is this your first Periodic Health Assessment (PHA)?: N 17. Are you enrolled in a secure messaging system with your health care provider?: Y 18. Current contact information: Preferred Method: Day Time Phone DSN: Day Time Phone: [phone] Night Time Phone: [phone] Email 1: [email or web address] Email 2: Address: [address] [place] [address]: [place] State: [place] Zip Code: [address] 19. Point of contact who can always reach you: Name: Sandra Calvillo Phone 1: [phone] Phone 2: EMAIL: [email or web address] Address: [address] [place] [address]: [place] State: [place] Zip Code: [address] II. DEPLOYMENT INFORMATION (DEP) 1. [ 2 ] Total number of deployments in the PAST 5 YEARS 2. [ [place] ] Primary country of last deployment 3. [ ] Date departed theater 4. [ N ] Are you going to deploy within the NEXT 120 DAYS? III. 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 [ No ] Does your specialty require an operational duty physical exam? 4. [ Yes ] Are you currently enrolled in a medical surveillance/occupational health program?: Yes IV. MEDICAL CONDITIONS (JONATHON): 1. Since your last PHA, have you experienced any of the following health conditions, and if so, what is your status? [ Persistent or recurring noises in head or ears ] Conditions with no medical care [ High blood pressure ] Conditions with medical care, but no longer under treatment [ ] Conditions with medical care, and NOW under treatment 2. Since your last PHA, have you experienced any of the following health conditions, and if so, what is your status? [ ] Conditions with no medical care [ ] Conditions with medical care, but no longer under treatment [ Recurring muscle, joint, or low back pain, Stomach problems ] Conditions with medical care, and NOW under treatment 3. For any condition marked YES in question 1 or 2, are you currently on any profile or limited duty for that condition? [ Stomach problems ] Conditions 4. [ Not Sure ] Have you been based or stationed at a location where an open burn pit was used? 5. [ No ] Have you been exposed to toxic airborne chemicals or other airborne contaminants? 6. [ No ] Are you enrolled in the Airborne Hazards and Open Burn Pit Registry? 7. [ Y ] Federal law requires eligible members to enroll in the Airborne Hazards and Open Burn Pit Registry or opt-out. If eligble, choose one: 8. Have you had any surgery since your last PHA?: No 10.a. [ No ] Since your last PHA, has a health care provider recommended surgery(s) that you have not had? 11.a. [ No ] Do you currently require hearing aids, special medical supplies, CPAP, adaptive equipment, assistive technology devices, and/or other special accommodations? 12.a. [ Yes ] Do you have a waiver or profile for any part of your Service's physical fitness test? 12.b. [ Cardio EventCrunches/Sit-Ups, Push-Ups ] Which component(s) of your physical fitness test are waived/profiled? 13.a. [ No ] Do you have any problems wearing a gas mask, ballistic helmet, body armor, and/or chemical/biological protective garments? 14.a. [ No ] Have you ever been told by a health care provider that you SHOULD NOT receive an immunization for medical reasons? 15.a. [ No ] Do you have a permanent profile or an Assignment Limitation Code C? 16.a. [ Yes ] Are you on a temporary profile or limited duty? 16.b. [ Medical recommendation from for stomach issues ] Why? 17. [ 2 ] During the PAST 2 years, how many times have you been placed on a temporary profile or on limited duty? V. INDIVIDUAL MEDICAL READINESS (IMR) 1. [ No ] Do you have any allergies? 3. [ Not required ] Do you have red medical warning dog tags? 4. [ Yes ] Do you wear corrective lenses? 5. [ 1 ] How many pairs of glasses do you have? 6. [ Yes ] Do you have gas mask inserts? . BEHAVIORAL HEALTH (MHA) 1. a. [ None ] Over the PAST MONTH, what major life stressors have you experienced that are a cause of significant concern or make it difficult for you to do your work, take care of things at home, or get along with other people (for example, serious conflicts with others, relationship problems, or a legal, disciplinary or financial problem)? 2. a. [ Yes Anxiety/alcohol abuse ] In the PAST YEAR did you receive care for any mental health condition or concern such as, but not limited to post traumatic stress disorder (PTSD), depression, anxiety disorder, alcohol abuse or substance abuse? 3. [ Yes Propanalon 20mg,lexapro 20 mg ] What prescription or over-the counter medications (including herbals/supplements) for sleep, pain, combat stress, or a mental health problem are you CURRENTLY taking? 4. a. [ No ] In the past 12 months, have you gambled? 5. a. [ Never ] How often do you have a drink containing alcohol? 6. Have you ever had any experience that was so frightening, horrible, or upsetting that in the PAST MONTH, you: 6. a. [ No ] Have had nightmares about it or thought about it when you did not want to? 6. b. [ No ] Tried hard not to think about it or went out of your way to avoid situations that remind you of it? 6. c. [ No ] Were constantly on guard, watchful or easily startled? 6. d. [ No ] Billings numb or detached from others, activities, or your surroundings? 6. e. [ Not answered ] Billings guilt or unable to stop blaming yourself or others for the event(s) or any problems the event(s) may have caused? 7. Over the LAST 2 WEEKS, how often have you been bothered by the following problems? 7. a. [ Not at all ] Little interest or pleasure in doing things 7. b. [ Not at all ] Feeling down, depressed, or hopeless 8. [ No ] Would you like to schedule an appointment with a health care provider to discuss any health concern(s)? 9. [ No ] Are you interested in receiving information or assistance for a stress, emotional or alcohol concern? 10. [ No ] Are you interested in receiving assistance for a family or relationship concern? 11. [ No ] Would you like to schedule a visit with a tree specialist, mental health care provider, or a community support counselor? VII. FAMILY HISTORY AND LIFESTYLE (LIF) 1. [ Very Good ] Overall, how would you rate your health during the PAST MONTH? 2. [ Canc ] Member indicates that family members have the following problems 3. The following family members has/had a history of cancer: Melenoma: Mother Unknown Type of Cancer: Grandmother, Grandfather 6. [ Yes ] I participate in moderate intensity physical activites at least 2.5 hours, or a combination of moderate and vigorous aerobic activites, for at least 75 minutes per week. 7. In a typical week, I do physical activities specifically designed to STRENGTHEN my muscles: [ 2 ] Day(s) per week 8. [ propanalol 20 mg, lexapro 20 mg ] What prescriptions or [id number] medications are you CURRENTLY taking for health problems on a ROUTINE BASIS? 9. Which of the following products have you taken since your last PHA: None of the above 11. Think about the PAST 30 DAYS. How often did you eat/drink the following foods/beverages? [ 3 to 6 servings per week ] Fruits [ 1 serving per day ] Vegetables [ 1 serving per day ] Starchy Vegetables [ 3 to 6 servings per week ] Whole Grains [ 1 serving per day ] Dairy and Calcium Containing Foods [ Rarely or Never ] Fish [ 2 servings per day ] Lean Protein [ 3 to 6 servings per week ] Sugar-Sweetened Beverages ] Have you had a cholesterol check by a health patient centered care specialist within the PAST 5 YEARS? 13.a. In the PAST 30 DAYS, which of the following products have you used on at least one day? Electronic Cigarettes 13.b. How long have you been using tobacco products?: 1 to 5 years 14. [ No ] Are you interested in quitting tobacco? 16. [ No ] Are you regularly exposed to secondhand smoke? 17. [ 5 to less than 7 hours ] During the LAST 2 WEEKS, how many hours of sleep did you get on most days? 18. [ No ] During the LAST 2 WEEKS, have you felt impaired or unable to adequately perform due to sleepiness or poor quality sleep? 19. [ No ] Have you had any unexplained weight loss or gain since your last PHA? 20. Member is not at risk for sexually transmitted infections. 22. Since your last PHA, what, if anything, have you and your partner used to keep from getting ? [ My partner(s) or I intend to get in the next year. ] I am not actively taking steps to prevent as 23. [ No ] In the last year, have you or your partner had a scare, where you were not trying to get but were worried enough to use a home test? X. OTHER MEDICAL (OTH) 1. [ 4 ] Rate the amount of pain you have had, on average, over the PAST 24 HOURS 2. [ Yes ] Are you receiving treatment for pain? 3. [ Yes ] Since your last PHA, have you received care or treatment for any medical and/or mental health condition(s) from a civilian or non- facility? 4. List the condition(s) treated and where the care was provided: Conditions: Stomach issues, Lower back pain Where: [facility], [place] 5. Member acknowledged responsibility for reporting health issues. 7. [ No ] Woud you like to schedule an appointment with a health care provider to discuss any health concerns? XI. SEPARATION AND CHCF 1. 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 PART B. RECORD REVIEW AND RECOMMENDATIONS I. RECORD REVIEWER INFORMATION 1. Last Name: WALDEMAR 2. First Name: TARUN 3. Middle Name: 4. Service Branch: [employer] 5. 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 EMAIL: [email or web address] 8. Facility: [address] 9. Unit: [address] 10. Address: [address] [place] [address] 11. State: [place] 12. Zip Code: [address] 13. Phone: [phone] 14. Date Record Review: II. MEDICAL SCREENING 1. 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 [ 5 feet 11 inches Date: ] member of the legislative assembly's most recently documented height 3. [ 225 pounds Date: ] member of the legislative assembly's most recently documented weight 4. [ 117/79 Date: ] member of the legislative assembly's most recently documented blood pressure reading 5. [ No ] Does the member of the legislative assembly have a history of abnormal blood pressure since their last PHA? 6. [ Yes ] Does the member of the legislative assembly have a laboratory test of sickle cell trait documented in their permanent medical record? 7. [ No Cholesterol Test Documented ] What is the date of the member of the legislative assembly's most recently documented cholesterol test? 9. [ Wellbutrin 300mg- started in 2022 for anxiety Propranolol-2022 for anxiety and high bp Hydroxycin 50mg- started 2022- sleep aid lexapro 20mg ] List of member of the legislative assembly's active medications listed in their permanent medical record 10. [ No ] Is there a discrepancy between the active medication record review and the member of the legislative assembly's self-reported list of medications? 11. 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 [ No ] Is there a discrepancy between the member of the legislative assembly's list of OUTSIDE care (from OTH5), and the OUTSIDE care found in the record? 13. 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 [ Not Answered ] Confirm that vaccine exemptions are listed in the medical record for each vaccine listed III. OCCUPATION-SPECIFIC EXAMINATIONS 2. 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 IV. FAMILY HISTORY AND LIFESTYLE 1. 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 VII. INDIVIDUAL MEDICAL READINESS 1. 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 2. 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 [ Classification: 1 ] Most recently documented dental exam 4. 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 5. 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 6. Does the member of the legislative assembly have the following laboratory tests documented in their permanent medical record? [ Yes ] HIV test within the PAST 24 months [ Yes ] G6PD results on file [ Yes ] Blood type and Rh on file [ Yes ] DNA test on file IX. ADDITIONAL RECORD REVIEWER COMMENTS 1. This record review indicates the potential need for provider notification or referral: Provider Notified 2. Additional comments about this record review that need to be forwarded to the Health Landscape Manager completing PART C: member stated they are currently under tx for hypertension, stomach problems. also stated in the past year they received care for anxiety and alcohol abuse. currently prescribed propranolol 20mg, Lexapro 20mg. Date Record Review Completed: PART C. HEALTH CARE PROVIDER I. MENTAL HEALTH ASSESSMENT (MHA) PROVIDER INFORMATION 1. Last Name: LISA 2. First Name: THUAN 3. Middle Name: 4. Service Branch: [employer] 5. 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 EMAIL: [email or web address] 8. Facility: [address] 9. Unit: [address] 10. Address: [place] 11. State: [place] 12. Zip Code: [address] 13. Phone: [phone] 14. Date HCP Review initiated: 1. Member marked that they did not have a concern or a difficulty with a major life stressor. 2. Address concerns identified on member questions 2 and 3. History of mental health care: Member indicated concern or yes Member's response: Anxiety/alcohol abuse Anxiety/alcohol abuse Provider's comments: . Medications: Member indicated concern or yes Member's response: Propanalon 20mg,lexapro 20 mg Propanalon 20mg,lexapro 20 mg Provider's comments: . 3. Member's AUDIT-C screening score was 0. (nothing required) 4. Member did not mady yes on two or more of questions 6a through 6e. 5. Member did not mady More than half the days or nearly every day on question 7a or 7b. 6. Suicide risk evaluation. 6. a. Ask: Over the past month, have you wished you were or wished you could go to sleep and not wake up?: No 6. b. Ask: Have you actually had any thoughts of killing yourself?: No 6. f. 1. Ask: In you lifetime, have you done anything, started to do anything, or prepared to do anything to end your life?: No 6. g. Further risk assessment comments: 7. Member states that they have not had thoughts or concerns over the past month that they might hurt or lose control with someone. 9. Summary of Provider's identified concerns needing referrals: None 11. Comments: 13. Supplemental services recommended/information provided: No supplemental services required Date MHA Certified: III. PERIODIC HEALTH ASSESSMENT (PHA) PROVIDER INFORMATION 1. Last Name: LISA 2. First Name: THUAN 3. Middle Name: 4. Service Branch: [employer] 5. 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 EMAIL: [email or web address] 8. Facility: [facility] [address] 9. Unit: [facility] [address] 10. Address: [address] [place] [address] 11. State: [place] 12. Zip Code: [address] 13. Phone: [phone] 14. Date HCP Review initiated: IV. PERIODIC HEALTH ASSESSMENT PROVIDER RECOMMENDATIONS and REFERRALS 1. Provider concerns with this assessment: No issues or concerns identified V. SUMMARY AND COMMENTS 1. Additional information summarizing findings during the member of the legislative assembly assessment: 2. Provider Comments: . INDIVIDUAL MEDICAL READINESS DISPOSITION DETERMINATION JONATHON: Ready DEN: Ready IMM: Ready LAB: Ready ME: Ready IMR Status: Fully Medically Ready VII. 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 Reference [facility] 6490.07 Yes (member of the legislative assembly DOES NOT currently have a medical condition that limits deployability) Date PHA Completed: END OF CB6580 REPORT Impression:Meets?medical standards per RIAZ 48-123/MSD. Disposition:?No AF469 changes based on this encounter.[employer] Qualified. Extracted from:Title: BE[facility] *Psychiatrist OP Follow Up Note Author: CHLOÉ LAUREN MD Date: 10/24/2326-Mar-23 Pt was referred for med mgmt for Alcohol Use DO, in early remission, and chronic anxiety and sleep issues that have persisted despite avoiding alcohol for 6 mo and doing well in recovery. ?Pt described panic-like attacks occurring 1-2x per week associated with sudden onset anxiety, tunnel vision, nausea, SOB, and tension. ?Pt denied sense of impending doom, and his worry about attacks and associated impairment is fairly mild. ?He expressed some hesitancy about driving, public places, and social events. ?Pt s father and brother are treated for MAYTE. ?He endorsed generalized symptoms including insomnia, restlessness, fidgetiness, intermittent nausea, and elevated BP; however, he denied excessive worry about multiple life areas, not meeting criteria for MAYTE. Dx of Unspecified Anxiety DO is assigned. ?Pt was agreeable with a trial of Lexapro for anxiety, starting with a low dose given his past adverse reaction to Zoloft. ?Benefit from Wellbutrin is questionable, and it may be contributing to insomnia, so will switch to the SR form and decrease the dose to 200mg. ?Pt will continue PRN hydroxyzine for sleep for now, but will consider alternative if sleep does not improve. ?HTN is inadequately controlled with Propranolol; will plan to switch to a first-line treatment once psychotropics are stable; increasing to 20mg TID in the interim. ?Pt to continue home BP checks. 07-May-23 Anxiety symptoms, avoidant behaviors, insomnia, and functioning have improved significantly with med change. ?Increasing Lexapro to 15mg for residual symptoms and tapering Wellbutrin with goal of stopping. ?BP at home is improving as well, and pt is decreasing Propranolol. ?Pt will continue to monitor BP at home with goal of stopping Propranolol. ?If BP does not continue to improve, may consider switch to a first line antihypertensive. ? 19-Jun-23 Anxiety and overall functioning continue to improve. ?Remains motivated for recovery. ?Ready to stop Wellbutrin. ?Lexapro is working well but he is having side effect of ED. ?Will start trial of Viagra. 21-Aug-23 Pt continues to do well in recovery, and he s functioning well. ?Anxiety has improved, though he continues to have residual symptoms. ?Increasing Lexapro to 20mg. 24-Oct-23 Pt reports anxiety is well managed, he remains active in recovery from alcohol, and is functioning well socially and occupationally. ?No med changes. ? ? ? Treatment Plan / Recommendations:?Meds/Labs: ??Continue?Lexapro?20mg daily ??Continue Hydroxyzine 50mg HS PRN sleep ??Continue?Propranolol 20mg?BID PRN anxiety ??Continue Viagra 50mg PRN 1 hr before sexual activity ??Discussed risk, benefits, and alternatives, side effects and any black box warnings of treatment recommendations. Patient understood and agreed with treatment plan and recommendations. ??Psychotherapy:?completed ??Next appointment: ?23-Jan-24 at?1345?ET? via [employer] ? 1.?Anxiety disorder, unspecified Ordered: propranolol(propranolol 20 mg oral tablet), 1 tab(s), Oral, BID, PRN anxiety, # 60 tab(s), 2 total refill(s), Maintenance, 1 tab(s) Oral BID,PRN:anxiety, Pharmacy: [facility]/pharmacy #[id number] [External Rx] ? 2.?Alcohol use disorder, in sustained remission ? 3.?Drug-induced erectile dysfunction Ordered: sildenafil(Viagra 50 mg oral tablet), 1 tab(s), Oral, Daily, 1 hour before sexual activity * max 10 per month*, # 10 tab(s), 5 total refill(s), Maintenance, 1 tab(s) Oral Daily,Instr:1 hour before sexual activity * max 10 per month*, Pharmacy: [facility]/pharmacy #[id number] [External Rx] ? Orders: hydrOXYzine(hydrOXYzine pamoate 50 mg oral capsule), 1 cap(s), Oral, Daily, PRN as needed for anxiety, # 15 cap(s), 2 total refill(s), Maintenance, may sub with tablets, 1 cap(s) Oral Daily,PRN:as needed for anxiety, Pharmacy: [facility]/pharmacy #[id number] [External Rx] escitalopram(Lexapro 20 mg oral tablet), 1 tab(s), Oral, Daily, # 30 tab(s), 2 total refill(s), Maintenance, 1 tab(s) Oral Daily, Pharmacy: [facility]/pharmacy [id number] [External Rx] Prognosis: Good Benefits, Risks, Alternatives Discussed: Yes Treatment Plan: Continue current medications, Encourage balanced diet, Exercise 4-5 times / week, Practice good sleep hygiene, Continue current psychotherapy Number of Visits Expected: Ongoing Maintenance Target Symptoms: Anxiety, Insomnia, Substance use Goals of Treatment: Improve overall functioning, Decrease in target symptoms Methods of Monitoring Outcomes: Reduced Audit-C score, Reduced MAYTE-7 score, Reduced PHQ-9 score Evaluation Type: By complexity ? Objectives of Treatment #1: Maintain sobriety Goals of Treatment #1: Improve overall functioning Interventions of Treatment #1: Attend [facility] OP group; continue psychotherapy Objective #1 Goal Status: Progressing, continue Objective #1 Start Date: 02/12/23 ? ? ? Treatment Planning Requirements: 1) Developed treatment plan collaboratively with patient, with agreement on plan of care and goals, 2) Patient agrees to attend appointments, engage in treatment, discuss any concerns in order to meet treatment goals, 3) Provider will leverage patient strengths and limit potential barriers to treatment Extracted from:Title: BEH *Psychiatrist OP Follow Up Note Author: CHLOÉ LAUREN MD Date: 08/21/2326-Mar-23 Pt was referred for med mgmt for Alcohol Use DO, in early remission, and chronic anxiety and sleep issues that have persisted despite avoiding alcohol for 6 mo and doing well in recovery. ?Pt described panic-like attacks occurring 1-2x per week associated with sudden onset anxiety, tunnel vision, nausea, SOB, and tension. ?Pt denied sense of impending doom, and his worry about attacks and associated impairment is fairly mild. ?He expressed some hesitancy about driving, public places, and social events. ?Pt s father and brother are treated for MAYTE. ?He endorsed generalized symptoms including insomnia, restlessness, fidgetiness, intermittent nausea, and elevated BP; however, he denied excessive worry about multiple life areas, not meeting criteria for MAYTE. Dx of Unspecified Anxiety DO is assigned. ?Pt was agreeable with a trial of Lexapro for anxiety, starting with a low dose given his past adverse reaction to Zoloft. ?Benefit from Wellbutrin is questionable, and it may be contributing to insomnia, so will switch to the SR form and decrease the dose to 200mg. ?Pt will continue PRN hydroxyzine for sleep for now, but will consider alternative if sleep does not improve. ?HTN is inadequately controlled with Propranolol; will plan to switch to a first-line treatment once psychotropics are stable; increasing to 20mg TID in the interim. ?Pt to continue home BP checks. 07-May-23 Anxiety symptoms, avoidant behaviors, insomnia, and functioning have improved significantly with med change. ?Increasing Lexapro to 15mg for residual symptoms and tapering Wellbutrin with goal of stopping. ?BP at home is improving as well, and pt is decreasing Propranolol. ?Pt will continue to monitor BP at home with goal of stopping Propranolol. ?If BP does not continue to improve, may consider switch to a first line antihypertensive. ? 19-Jun-23 Anxiety and overall functioning continue to improve. ?Remains motivated for recovery. ?Ready to stop Wellbutrin. ?Lexapro is working well but he is having side effect of ED. ?Will start trial of Viagra. 21-Aug-23 Pt continues to do well in recovery, and he s functioning well. ?Anxiety has improved, though he continues to have residual symptoms. ?Increasing Lexapro to 20mg. ? ? ? Treatment Plan / Recommendations:?Meds/Labs: ??Increase?Lexapro?to 20mg daily ??Continue Hydroxyzine 50mg HS PRN sleep ??Continue?Propranolol to 20mg?BID-TID ??Continue Viagra 50mg PRN 1 hr before sexual activity ??Discussed risk, benefits, and alternatives, side effects and any black box warnings of treatment recommendations. Patient understood and agreed with treatment plan and recommendations. ??Psychotherapy: continue with?[facility]?aftercare ??Next appointment: ?24-Oct-23 at?1345?ET? via [employer] ? 1.?Alcohol Use Disorder, severe, in early remission ? 2.?Anxiety disorder, unspecified Ordered: escitalopram(Lexapro 20 mg oral tablet), 1 tab(s), Oral, Daily, # 30 tab(s), 2 total refill(s), Maintenance, 1 tab(s) Oral Daily, Pharmacy: [facility]/pharmacy #[id number] [External Rx] propranolol(propranolol 20 mg oral tablet), 1 tab(s), Oral, BID, PRN anxiety, # 60 tab(s), 1 total refill(s), Maintenance, 1 tab(s) Oral BID,PRN:anxiety, [id number] ? 3.?Drug-induced erectile dysfunction Ordered: sildenafil(Viagra 50 mg oral tablet), 1 tab(s), Oral, Daily, 1 hour before sexual activity * max 10 per month*, # 10 tab(s), 1 total refill(s), Maintenance, 1 tab(s) Oral Daily,Instr:1 hour before sexual activity * max 10 per month*, Pharmacy: [facility]/pharmacy #[id number] [External Rx] ? Orders: hydrOXYzine(hydrOXYzine pamoate 50 mg oral capsule), 1 cap(s), Oral, Daily, PRN as needed for anxiety, # 30 cap(s), 1 total refill(s), Maintenance, may sub with tablets, 1 cap(s) Oral Daily,PRN:as needed for anxiety, [id number] [External Rx] Prognosis: Good Benefits, Risks, Alternatives Discussed: Yes Treatment Plan: Encourage balanced diet, Exercise 4-5 times / week, Practice good sleep hygiene, Continue current psychotherapy Number of Visits Expected: 1-3 Target Symptoms: Anxiety, Insomnia, Substance use Goals of Treatment: Improve overall functioning, Decrease in target symptoms Methods of Monitoring Outcomes: Reduced Audit-C score, Reduced MAYTE-7 score, Reduced PHQ-9 score Evaluation Type: By complexity ? Objectives of Treatment #1: Maintain sobriety Goals of Treatment #1: Improve overall functioning Interventions of Treatment #1: Attend [facility] OP group; continue psychotherapy Objective #1 Goal Status: Progressing, continue Objective #1 Start Date: 02/12/23 ? ? ? Treatment Planning Requirements: 1) Developed treatment plan collaboratively with patient, with agreement on plan of care and goals, 2) Patient agrees to attend appointments, engage in treatment, discuss any concerns in order to meet treatment goals, 3) Provider will leverage patient strengths and limit potential barriers to treatment Extracted from:Title: BEH *Psychiatrist OP Follow Up Note Author: CHLOÉ LAUREN MD Date: 06/19/2326-Mar-23 Pt was referred for med mgmt for Alcohol Use DO, in early remission, and chronic anxiety and sleep issues that have persisted despite avoiding alcohol for 6 mo and doing well in recovery. ?Pt described panic-like attacks occurring 1-2x per week associated with sudden onset anxiety, tunnel vision, nausea, SOB, and tension. ?Pt denied sense of impending doom, and his worry about attacks and associated impairment is fairly mild. ?He expressed some hesitancy about driving, public places, and social events. ?Pt s father and brother are treated for MAYTE. ?He endorsed generalized symptoms including insomnia, restlessness, fidgetiness, intermittent nausea, and elevated BP; however, he denied excessive worry about multiple life areas, not meeting criteria for MAYTE. Dx of Unspecified Anxiety DO is assigned. ?Pt was agreeable with a trial of Lexapro for anxiety, starting with a low dose given his past adverse reaction to Zoloft. ?Benefit from Wellbutrin is questionable, and it may be contributing to insomnia, so will switch to the SR form and decrease the dose to 200mg. ?Pt will continue PRN hydroxyzine for sleep for now, but will consider alternative if sleep does not improve. ?HTN is inadequately controlled with Propranolol; will plan to switch to a first-line treatment once psychotropics are stable; increasing to 20mg TID in the interim. ?Pt to continue home BP checks. 07-May-23 Anxiety symptoms, avoidant behaviors, insomnia, and functioning have improved significantly with med change. ?Increasing Lexapro to 15mg for residual symptoms and tapering Wellbutrin with goal of stopping. ?BP at home is improving as well, and pt is decreasing Propranolol. ?Pt will continue to monitor BP at home with goal of stopping Propranolol. ?If BP does not continue to improve, may consider switch to a first line antihypertensive. ? 19-Jun-23 Anxiety and overall functioning continue to improve. ?Remains motivated for recovery. ?Ready to stop Wellbutrin. ?Lexapro is working well but he is having side effect of ED. ?Will start trial of Viagra. ? ? ? Treatment Plan / Recommendations:?Meds/Labs: ??Continue?Lexapro?to 15mg daily ??Stop?Wellbutrin SR?100mg ??Continue Hydroxyzine 50mg HS PRN sleep ??Continue?Propranolol to 20mg?BID-TID ??Start Viagra 50mg PRN 1 hr before sexual activity. ??Discussed risk, benefits, and alternatives, side effects and any black box warnings of treatment recommendations. Patient understood and agreed with treatment plan and recommendations. ??Psychotherapy: continue with?ADAPT level 1 ??Next appointment: ?21-Aug-23 at?1245?ET? via [employer] ? 1.?Anxiety disorder, unspecified Ordered: propranolol(propranolol 20 mg oral tablet), 1 tab(s), Oral, TID, PRN anxiety, # 90 tab(s), 1 total refill(s), Maintenance, 1 tab(s) Oral TID,PRN:anxiety, Pharmacy: [facility]/pharmacy #[id number] [External Rx] ? 2.?Alcohol Use Disorder, severe, in early remission ? 3.?Drug-induced erectile dysfunction Ordered: sildenafil(Viagra 50 mg oral tablet), 1 tab(s), Oral, Daily, 1 hour before sexual activity * max 10 per month*, # 10 tab(s), 1 total refill(s), Maintenance, 1 tab(s) Oral Daily,Instr:1 hour before sexual activity * max 10 per month*, Pharmacy: [facility]/pharmacy #[id number] [External Rx] ? Orders: hydrOXYzine(hydrOXYzine pamoate 50 mg oral capsule), 1 cap(s), Oral, Daily, PRN as needed for anxiety, # 30 cap(s), 1 total refill(s), Maintenance, may sub with tablets, 1 cap(s) Oral Daily,PRN:as needed for anxiety, Pharmacy: [facility]/pharmacy #[id number] [External Rx] escitalopram(Lexapro 5 mg oral tablet), 3 tab(s), Oral, Daily, # 90 tab(s), 1 total refill(s), Maintenance, 3 tab(s) Oral Daily, Pharmacy: [facility]/pharmacy #[id number] [External Rx] Prognosis: Good Benefits, Risks, Alternatives Discussed: Yes Treatment Plan: Encourage balanced diet, Exercise 4-5 times / week, Practice good sleep hygiene, Continue current psychotherapy Number of Visits Expected: 1-3 Target Symptoms: Anxiety, Insomnia, Substance use Goals of Treatment: Improve overall functioning, Decrease in target symptoms Methods of Monitoring Outcomes: Reduced Audit-C score, Reduced MAYTE-7 score, Reduced PHQ-9 score Evaluation Type: By complexity ? Objectives of Treatment #1: Maintain sobriety Goals of Treatment #1: Improve overall functioning Interventions of Treatment #1: Attend ADAPT OP group; continue psychotherapy Objective #1 Goal Status: Progressing, continue Objective #1 Start Date: 02/12/23 ? ? ? Treatment Planning Requirements: 1) Developed treatment plan collaboratively with patient, with agreement on plan of care and goals, 2) Patient agrees to attend appointments, engage in treatment, discuss any concerns in order to meet treatment goals, 3) Provider will leverage patient strengths and limit potential barriers to treatment Extracted from:Title: BEH *Psychiatrist OP Follow Up Note Author: CHLOÉ LAUREN MD Date: 05/07/23 1.?Anxiety disorder, unspecified 26-Mar-23 Pt was referred for med mgmt for Alcohol Use DO, in early remission, and chronic anxiety and sleep issues that have persisted despite avoiding alcohol for 6 mo and doing well in recovery. ?Pt described panic-like attacks occurring 1-2x per week associated with sudden onset anxiety, tunnel vision, nausea, SOB, and tension. ?Pt denied sense of impending doom, and his worry about attacks and associated impairment is fairly mild. ?He expressed some hesitancy about driving, public places, and social events. ?Pt s father and brother are treated for MAYTE. ?He endorsed generalized symptoms including insomnia, restlessness, fidgetiness, intermittent nausea, and elevated BP; however, he denied excessive worry about multiple life areas, not meeting criteria for MAYTE. Dx of Unspecified Anxiety DO is assigned. ?Pt was agreeable with a trial of Lexapro for anxiety, starting with a low dose given his past adverse reaction to Zoloft. ?Benefit from Wellbutrin is questionable, and it may be contributing to insomnia, so will switch to the SR form and decrease the dose to 200mg. ?Pt will continue PRN hydroxyzine for sleep for now, but will consider alternative if sleep does not improve. ?HTN is inadequately controlled with Propranolol; will plan to switch to a first-line treatment once psychotropics are stable; increasing to 20mg TID in the interim. ?Pt to continue home BP checks. 07-May-23 Anxiety symptoms, avoidant behaviors, insomnia, and functioning have improved significantly with med change. ?Increasing Lexapro to 15mg for residual symptoms and tapering Wellbutrin with goal of stopping. ?BP at home is improving as well, and pt is decreasing Propranolol. ?Pt will continue to monitor BP at home with goal of stopping Propranolol. ?If BP does not continue to improve, may consider switch to a first line antihypertensive. ? Treatment Plan / Recommendations:?Meds/Labs: ??Increase?Lexapro?to 15mg daily ??Decrease?Wellbutrin SR?to 100mg?qam ??Continue Hydroxyzine 50mg HS PRN sleep ??Decrease?Propranolol to 20mg?BID ??Discussed risk, benefits, and alternatives, side effects and any black box warnings of treatment recommendations. Patient understood and agreed with treatment plan and recommendations. ??Psychotherapy: continue with?ADAPT level 1 ??Next appointment: ?19-Jun-23 at 1245 ET? via [employer] ? Ordered: escitalopram(Lexapro 5 mg oral tablet), 3 tab(s), Oral, Daily, # 90 tab(s), 1 total refill(s), Maintenance, 3 tab(s) Oral Daily, Pharmacy: [facility]/pharmacy #[id number] [External Rx] propranolol(propranolol 20 mg oral tablet), 1 tab(s), Oral, BID, PRN anxiety, # 60 tab(s), 1 total refill(s), Maintenance, 1 tab(s) Oral BID,PRN:anxiety, Pharmacy: [facility]/pharmacy #[id number] [External Rx] buPROPion(Wellbutrin SR 100 mg/12 hours oral tablet, extended release), 1 tab(s), Oral, every morning, # 30 tab(s), 1 total refill(s), Maintenance, 1 tab(s) Oral every morning, Pharmacy: [facility]/pharmacy #[id number] [External Rx] ? 2.?Alcohol Use Disorder, severe, in early remission ? 3.?Essential (primary) hypertension Ordered: propranolol(propranolol 20 mg oral tablet), 1 tab(s), Oral, BID, PRN anxiety, # 60 tab(s), 1 total refill(s), Maintenance, 1 tab(s) Oral BID,PRN:anxiety, Pharmacy: [facility]/pharmacy #[id number] [External Rx] ? 4.?Insomnia, unspecified Ordered: hydrOXYzine(hydrOXYzine pamoate 50 mg oral capsule), 1 cap(s), Oral, Daily, PRN as needed for anxiety, # 30 cap(s), 1 total refill(s), Maintenance, may sub with tablets, 1 cap(s) Oral Daily,PRN:as needed for anxiety, [facility]: [id number] [External Rx] ? Prognosis: Fair Benefits, Risks, Alternatives Discussed: Yes Treatment Plan: Encourage balanced diet, Exercise 4-5 times / week, Practice good sleep hygiene, Continue current psychotherapy Number of Visits Expected: 1-3 Target Symptoms: Anxiety, Insomnia, Substance use Goals of Treatment: Improve overall functioning, Decrease in target symptoms Methods of Monitoring Outcomes: Reduced Audit-C score, Reduced MAYTE-7 score, Reduced PHQ-9 score Evaluation Type: By complexity ? Objectives of Treatment #1: Maintain sobriety Goals of Treatment #1: Improve overall functioning Interventions of Treatment #1: Attend ADAPT OP group; continue psychotherapy Objective #1 Goal Status: Progressing, continue Objective #1 Start Date: 02/12/23 ? ? ? 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 ?[facility] HCP terminal audiogram profile is?pending 03 OCT 2022; ?Reviewed member s 2807 positioned against review of vianca and JL entries. ?Concur with entirety of member s identified issues. ?Isolated additional issues identified (see A&P). Review?did not identify concerns that meet MSD criteria or warrant consideration of an AMRO referral. Forms 2807 and 2808 will be completed via [facility] following HCP audiogram completion. RTC as needed for additional care, PVUA. Patient denies any thoughts or concerns consistent with Suicidal or Homicidal Ideations.; prev med : discussed infection control with hand washing, 100% seat-belt use for safety;?discussed med use, side effects and warnings given, no additional profile;? Addendum by ANDREA ANDERSON MD on October 03, 2022 08:59:37 CDT ? DIANE - Privacy?ASIMS - [id number] - [place] - User: [email or web address]?Log Off SEPARATION MENTAL HEALTH ASSESSMENT ? Date: ? 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 Recommended referal(s): ? ? Referral Time Comments: ? ? SECTION II. MENTAL HEALTH ASSESSMENT (MHA) PROVIDER INFORMATION 1. Last Name: Arron 2. First Name: Andrea 3. Middle Name: Wes 4. Service Branch: [employer] 5. 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 EMAIL: [email or web address] 8. Facility: [facility] 9. Unit: 2 [facility] 10. Address: [address] [place] [address] [employer] 11. State: [place] 12. Zip Code: [address] 13. Date: 1.? Deployer marked that they have a concern or a difficulty with a major life stressor: Member denies any specific psychological needs, no SI/HI, not a danger to self/others ? ? Additional info: family/relationship ? ? Referral is not indicated because there is no significant impairment. ? 2.? Address concerns identified on deployer questions 2 and 3. ? ? History of mental health care: N/A ? Deployer's response:? Provider's comments: ? ? Medications: N/A ? Deployer's response:? Provider's comments: ? 3.? Deployer's AUDIT-C screening score was 1. (nothing required) ? 4.? Deployer did not mady yes on three or more of questions 5a through 5e. 5.? Deployer did not mady More than half the days or nearly every day on question 6a or 6b. ? 6.a.? Deployer has not wished they were or wished they could go to sleep and not wake up. 6.b.? Deployer has not actually had thoughts of killing themself. 6.f.1.? Deployer has not ever done anything, started to do anything, or prepared to do anything to end their life. 6.g. Further risk assessment: Member denies any specific psychological needs, no SI/HI, not a danger to self/others 6.h.? Deployer does not pose a current risk for harm to self. ? 7.? Deployer states that they have not had thoughts or concerns over the past month that they might hurt or lose control with someone. ? ? 13. Supplemental services recommended/information provided: ? ? No Supplemental Services Required 1. a. [? family/relationship ] Over the PAST MONTH, which major life stressors, if any, have you experienced that are a cause of significant concern or make it difficult for you to do your work, take care of things at home, or get along with other people? 1. b. [ No ]? Are you currently in treatment or getting professional help for this concern? ? 2. [? No? ] In the PAST YEAR did you receive care for any mental health condition or concern such as, but not limited to post traumatic stress disorder (PTSD), depression, anxiety disorder, alcohol abuse or substance abuse? ? 3. [? None? ] What prescription or over-the counter medications (including herbals/supplements) for sleep, pain, combat stress, or a mental health problem are you CURRENTLY taking? ? 4. a. [ Monthly ] How often do you have a drink containing alcohol? 4. b. [ 1 or 2 ] How many drinks containing alcohol do you have on a typical day when you are drinking? 4. c. [ Never ] How often do you have six or more drinks on one occasion? ? 5. Have you ever had any experience that was so frightening, horrible, or upsetting that in the PAST MONTH, you: 5. a. [ No ] Have had nightmares about it or thought about it when you did not want to? 5. b. [ No ] Tried hard not to think about it or went out of your way to avoid situations that remind you of it? 5. c. [ No ] Were constantly on guard, watchful or easily startled? 5. d. [ No ] [place] numb or detached from others, activities, or your surroundings? 5. e. [ No ] Bill[place] guilt or unable to stop blaming yourself or others for the event(s) or any problems the event(s) may have caused? ? 6. Over the LAST 2 WEEKS, how often have you been bothered by the following problems? 6. a. [ Not at all ] Little interest or pleasure in doing things 6. b. [ Not at all ] Feeling down, depressed, or hopeless ? 7. [ No ] Would you like to schedule an appointment with a health care provider to discuss any health concern(s)? 8. [ No ] Are you interested in receiving information or assistance for a stress, emotional or alcohol concern? 9. [ No ] Are you interested in receiving assistance for a family or relationship concern? 10. [ No ] Would you like to schedule a visit with a tree specialist or a community support counselor? ? Note [facility] HCP audiogram could not be performed prior to date of separation (end of contract) 04 OCT 2022 (audiogram booths inoperative with unknown date of repair);? member briefed of this by [facility] coordinator, and post-separation [facility] audiogram evaluation can be performed as needed Extracted from:Title: PCPF Author: CINDY DRUMMOND MD Date: 08/27/22 1.?Admission certification approved MEMBER IS MEDICALLY QUALIFIED FOR DUTY Members medical records have been reviewed [place] GABY 48-123 Chapter 5 and MEDICAL STANDARDS DIRECTORY (MSD) for Continued Service (Retention Standards), no disqualifying defects were found. Member is World-Wide Qualified and cleared for Continued Service.? Member is not on ALC Code C, X, or Y. ? [employer] approval is clearance to apply for the [employer] program, it does not constitute acceptance by the applicable [employer] Component (ARC) IMR: Yellow for Td due.? ? Non-Flyer; Not PRP; Not AUoF? CINDY Fuentes. MD BHANU, [facility], CFS, APPLICATIONS TRAINER ? 15?minutes spent reviewing medical records, examining patient, educating patient and writing clinical note.? 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 Recommended continued prev-med practices/immunizations ? F/u prn ER vs RTC precautions provided PVUA ? ? ? Ordered: HIV-1/O/2 EPI [id number] Repository Sample EPI [id number] ? 2.?ASSESSMENT, POST DEPLOYMENT, DOCUMENTED ON [id number] (MHA) ? 07/21/[address] [place] [address] Assessment and Plan Extracted from:Title : BEH *Psychiatrist OP Follow Up Note Author: CHLOÉ LAUREN MD Date: 04/30/2426-Mar-23 Pt was referred for med mgmt for Alcohol Use DO, in early remission, and chronic anxiety and sleep issues that have persisted despite avoiding alcohol for 6 mo and doing well in recovery. ?Pt described panic-like attacks occurring 1-2x per week associated with sudden onset anxiety, tunnel vision, nausea, SOB, and tension. ?Pt denied sense of impending doom, and his worry about attacks and associated impairment is fairly mild. ?He expressed some hesitancy about driving, public places, and social events. ?Pt s father and brother are treated for MAYTE. ?He endorsed generalized symptoms including insomnia, restlessness, fidgetiness, intermittent nausea, and elevated BP; however, he denied excessive worry about multiple life areas, not meeting criteria for MAYTE. Dx of Unspecified Anxiety DO is assigned. ?Pt was agreeable with a trial of Lexapro for anxiety, starting with a low dose given his past adverse reaction to Zoloft. ?Benefit from Wellbutrin is questionable, and it may be contributing to insomnia, so will switch to the SR form and decrease the dose to 200mg. ?Pt will continue PRN hydroxyzine for sleep for now, but will consider alternative if sleep does not improve. ?HTN is inadequately controlled with Propranolol; will plan to switch to a first-line treatment once psychotropics are stable; increasing to 20mg TID in the interim. ?Pt to continue home BP checks. 07-May-23 Anxiety symptoms, avoidant behaviors, insomnia, and functioning have improved significantly with med change. ?Increasing Lexapro to 15mg for residual symptoms and tapering Wellbutrin with goal of stopping. ?BP at home is improving as well, and pt is decreasing Propranolol. ?Pt will continue to monitor BP at home with goal of stopping Propranolol. ?If BP does not continue to improve, may consider switch to a first line antihypertensive. ? 19-Jun-23 Anxiety and overall functioning continue to improve. ?Remains motivated for recovery. ?Ready to stop Wellbutrin. ?Lexapro is working well but he is having side effect of ED. ?Will start trial of Viagra. 21-Aug-23 Pt continues to do well in recovery, and he s functioning well. ?Anxiety has improved, though he continues to have residual symptoms. ?Increasing Lexapro to 20mg. 24-Oct-23 Pt reports anxiety is well managed, he remains active in recovery from alcohol, and is functioning well socially and occupationally. ?No med changes. 23-Jan-24 Anxiety DO and alcohol use DO remain in full remission. ?MAYTE-7 score decreased from 10 to 2. Pt continues to function well and remains stable on medications. ?No med changes. 30-Apr-24 Pt continues to do well in recovery from alcohol. ?Anxiety symptoms are well-managed with current regimen, and he is overall functioning well. ?BP control has worsened, but primary care intake is not scheduled until October. ?Pt was advised he can take up to 80mg of Propranolol a day as needed until he can be seen by primary care. ? ? ? Treatment Plan / Recommendations:?Meds/Labs: ??Continue?Lexapro?20mg daily ??Continue Hydroxyzine 50mg HS PRN sleep ??Continue?Propranolol 20mg?BID-QID PRN anxiety and BP ??Continue Viagra 50mg PRN 1 hr before sexual activity ??Discussed risk, benefits, and alternatives, side effects and any black box warnings of treatment recommendations. Patient understood and agreed with treatment plan and recommendations. ??Psychotherapy:?completed ??Next appointment: ?30-Jul-24 at?1300?ET? via [employer] ? 1.?Alcohol Use Disorder, severe, in full remission ? 2.?Anxiety disorder, unspecified Ordered: escitalopram(Lexapro 20 mg oral tablet), 1 tab(s), Oral, Daily, # 30 tab(s), 2 total refill(s), Maintenance, 1 tab(s) Oral Daily, [id number] [External Rx] propranolol(propranolol 20 mg oral tablet), 1 tab(s), Oral, BID, PRN anxiety, # 60 tab(s), 2 total refill(s), Maintenance, 1 tab(s) Oral BID,PRN:anxiety, [facility]acy: [id number] [External Rx] ? 3.?Drug-induced erectile dysfunction Ordered: sildenafil(Viagra 50 mg oral tablet), 1 tab(s), Oral, Daily, 1 hour before sexual activity * max 10 per month*, # 10 tab(s), 5 total refill(s), Maintenance, 1 tab(s) Oral Daily,Instr:1 hour before sexual activity * max 10 per month*, Pharmacy: [facility]/pharmacy #[id number] [External Rx] ? Orders: hydrOXYzine(hydrOXYzine pamoate 50 mg oral capsule), 1 cap(s), Oral, Daily, PRN as needed for anxiety, # 15 cap(s), 2 total refill(s), Maintenance, may sub with tablets, 1 cap(s) Oral Daily,PRN:as needed for anxiety, Pharmacy: [facility]/pharmacy #[id number] [External Rx] Prognosis: Good Benefits, Risks, Alternatives Discussed: Yes Treatment Plan: Continue current medications, Encourage balanced diet, Exercise 4-5 times / week, Practice good sleep hygiene Number of Visits Expected: Ongoing Maintenance Target Symptoms: Anxiety, Insomnia, Substance use Goals of Treatment: Improve overall functioning, Decrease in target symptoms Methods of Monitoring Outcomes: Reduced Audit-C score, Reduced MAYTE-7 score Evaluation Type: By complexity ? Objectives of Treatment #1: Maintain sobriety Goals of Treatment #1: Improve overall functioning Interventions of Treatment #1: Attend ADAPT OP group; continue psychotherapy Objective #1 Goal Status: Goal met Objective #1 Start Date: 02/12/23 ? ? ? Treatment Planning Requirements: 1) Developed treatment plan collaboratively with patient, with agreement on plan of care and goals, 2) Patient agrees to attend appointments, engage in treatment, discuss any concerns in order to meet treatment goals, 3) Provider will leverage patient strengths and limit potential barriers to treatment Extracted from:Title: BEH *Psychiatrist OP Follow Up Note Author: CHLOÉ LAUREN MD Date: 01/23/2426-Mar-23 Pt was referred for med mgmt for Alcohol Use DO, in early remission, and chronic anxiety and sleep issues that have persisted despite avoiding alcohol for 6 mo and doing well in recovery. ?Pt described panic-like attacks occurring 1-2x per week associated with sudden onset anxiety, tunnel vision, nausea, SOB, and tension. ?Pt denied sense of impending doom, and his worry about attacks and associated impairment is fairly mild. ?He expressed some hesitancy about driving, public places, and social events. ?Pt s father and brother are treated for MAYTE. ?He endorsed generalized symptoms including insomnia, restlessness, fidgetiness, intermittent nausea, and elevated BP; however, he denied excessive worry about multiple life areas, not meeting criteria for MAYTE. Dx of Unspecified Anxiety DO is assigned. ?Pt was agreeable with a trial of Lexapro for anxiety, starting with a low dose given his past adverse reaction to Zoloft. ?Benefit from Wellbutrin is questionable, and it may be contributing to insomnia, so will switch to the SR form and decrease the dose to 200mg. ?Pt will continue PRN hydroxyzine for sleep for now, but will consider alternative if sleep does not improve. ?HTN is inadequately controlled with Propranolol; will plan to switch to a first-line treatment once psychotropics are stable; increasing to 20mg TID in the interim. ?Pt to continue home BP checks. 07-May-23 Anxiety symptoms, avoidant behaviors, insomnia, and functioning have improved significantly with med change. ?Increasing Lexapro to 15mg for residual symptoms and tapering Wellbutrin with goal of stopping. ?BP at home is improving as well, and pt is decreasing Propranolol. ?Pt will continue to monitor BP at home with goal of stopping Propranolol. ?If BP does not continue to improve, may consider switch to a first line antihypertensive. ? 19-Jun-23 Anxiety and overall functioning continue to improve. ?Remains motivated for recovery. ?Ready to stop Wellbutrin. ?Lexapro is working well but he is having side effect of ED. ?Will start trial of Viagra. 21-Aug-23 Pt continues to do well in recovery, and he s functioning well. ?Anxiety has improved, though he continues to have residual symptoms. ?Increasing Lexapro to 20mg. 24-Oct-23 Pt reports anxiety is well managed, he remains active in recovery from alcohol, and is functioning well socially and occupationally. ?No med changes. 23-Jan-24 Anxiety DO and alcohol use DO remain in full remission. ?MAYTE-7 score decreased from 10 to 2. Pt continues to function well and remains stable on medications. ?No med changes. ? ? ? Treatment Plan / Recommendations:?Meds/Labs: ??Continue?Lexapro?20mg daily ??Continue Hydroxyzine 50mg HS PRN sleep ??Continue?Propranolol 20mg?BID PRN anxiety ??Continue Viagra 50mg PRN 1 hr before sexual activity ??Discussed risk, benefits, and alternatives, side effects and any black box warnings of treatment recommendations. Patient understood and agreed with treatment plan and recommendations. ??Psychotherapy:?completed ??Next appointment: ?30-Apr-24 at?1345?ET? via [employer] ? 1.?Alcohol Use Disorder, severe, in full remission 2.?Anxiety disorder, unspecified 3.?Drug-induced erectile dysfunction Orders: escitalopram(Lexapro 20 mg oral tablet), 1 tab(s), Oral, Daily, # 30 tab(s), 2 total refill(s), Maintenance, 1 tab(s) Oral Daily, Pharmacy: [facility]/pharmacy #[id number] [External Rx] propranolol(propranolol 20 mg oral tablet), 1 tab(s), Oral, BID, PRN anxiety, # 60 tab(s), 2 total refill(s), Maintenance, 1 tab(s) Oral BID,PRN:anxiety, Pharmacy: [facility]/pharmacy #[id number] [External Rx] Prognosis: Good Benefits, Risks, Alternatives Discussed: Yes Treatment Plan: Continue current medications, Encourage balanced diet, Exercise 4-5 times / week, Practice good sleep hygiene Number of Visits Expected: Ongoing Maintenance Target Symptoms: Anxiety, Insomnia, Substance use Goals of Treatment: Improve overall functioning, Decrease in target symptoms Methods of Monitoring Outcomes: Reduced Audit-C score, Reduced MAYTE-7 score, Reduced PHQ-9 score Evaluation Type: By complexity ? Objectives of Treatment #1: Maintain sobriety Goals of Treatment #1: Improve overall functioning Interventions of Treatment #1: Attend [facility] OP group; continue psychotherapy Objective #1 Goal Status: Goal met Objective #1 Start Date: 02/12/23 ? ? ? Treatment Planning Requirements: 1) Developed treatment plan collaboratively with patient, with agreement on plan of care and goals, 2) Patient agrees to attend appointments, engage in treatment, discuss any concerns in order to meet treatment goals, 3) Provider will leverage patient strengths and limit potential barriers to treatment Extracted from:Title: PHA / MHA / Audio / Optometry Author: OLGA MULTANI Date: 12/18/23 mbcat came in for appt Addendum by OSMANI LUGO on December 18, 2023 09:53 EDT History of Refractive Surgery- No?Contact Lenses- N/A?Enrolled in Contact Lens Program- Yes?Gas Mask Inserts ordered- Yes?Current SRX on file- _ DVA (uncorrected) OD: 20/200 OS:?20/200 DVA (Corrected) OD: 20/20 OS: 20/20 NVA (uncorrected) OD: 20/30 OS: 20/30 NVA (Corrected) OD: 20/20 OS: 20/20 Optometry findings meet standards- Yes Addendum by ELIE REINA on December 18, 2023 10:05 EDT ?Vitals: Blood Pressure:??131/80 Heart Rate:68 Height: 180 Weight: 220 BMI: Medications: Propranolol-2022 for anxiety and high bp Hydroxycin 50mg- started 2022- sleep aid lexapro 20mg Chronic Problems: ADHD ADJUSTMENT DISORDER W/ ANXIETY Alcohol dependence, uncomplicated SF 507: _ Comments: None Addendum by THUAN GONZALEZ on December 18, 2023 10:49 EDT Chief Complaint: Member here for annual PHA.?No acute complaints.?IMR?green. HEENT:?Normal Joints:?Normal Lungs:?Normal Heart:?Normal Comments: ANNUAL PERIODIC HEALTH ASSESSMENT I. 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 Last Name: MARLEY 2. First Name: ALBERT 3. Middle Name: TANNER 4. Assessment Date: 5. : 6. Age: 28 7. Gender: M 8. DoD ID Number: [id number] 9. Service Branch: [employer] 10. 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 Status: [employer] [place] 12. Pay Grade: E05 13. 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 Duty Station/Location: [place] 15. UIC: [id number] 16. Is this your first Periodic Health Assessment (PHA)?: N 17. Are you enrolled in a secure messaging system with your health care provider?: Y 18. Current contact information: Preferred Method: Day Time Phone DSN: Day Time Phone: [phone] Night Time Phone: [phone] Email 1: [email or web address] Email 2: Address: [address] [place] [address]: [place] State: [place] Zip Code: [address] 19. Point of contact who can always reach you: Name: Sandra Calvillo Phone 1: [phone] Phone 2: EMAIL: [email or web address] Address: [address]: [place] State: [place] Zip Code: [address] II. DEPLOYMENT INFORMATION (DEP) 1. [ 2 ] Total number of deployments in the PAST 5 YEARS 2. [ [place] ] Primary country of last deployment 3. [ ] Date departed theater 4. [ N ] Are you going to deploy within the NEXT 120 DAYS? III. 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 [ No ] Does your specialty require an operational duty physical exam? 4. [ Yes ] Are you currently enrolled in a medical surveillance/occupational health program?: Yes IV. MEDICAL CONDITIONS (JONATHON): 1. Since your last PHA, have you experienced any of the following health conditions, and if so, what is your status? [ Persistent or recurring noises in head or ears ] Conditions with no medical care [ High blood pressure ] Conditions with medical care, but no longer under treatment [ ] Conditions with medical care, and NOW under treatment 2. Since your last PHA, have you experienced any of the following health conditions, and if so, what is your status? [ ] Conditions with no medical care [ ] Conditions with medical care, but no longer under treatment [ Recurring muscle, joint, or low back pain, Stomach problems ] Conditions with medical care, and NOW under treatment 3. For any condition marked YES in question 1 or 2, are you currently on any profile or limited duty for that condition? [ Stomach problems ] Conditions 4. [ Not Sure ] Have you been based or stationed at a location where an open burn pit was used? 5. [ No ] Have you been exposed to toxic airborne chemicals or other airborne contaminants? 6. [ No ] Are you enrolled in the Airborne Hazards and Open Burn Pit Registry? 7. [ Y ] Federal law requires eligible members to enroll in the Airborne Hazards and Open Burn Pit Registry or opt-out. If eligble, choose one: 8. Have you had any surgery since your last PHA?: No 10.a. [ No ] Since your last PHA, has a health care provider recommended surgery(s) that you have not had? 11.a. [ No ] Do you currently require hearing aids, special medical supplies, CPAP, adaptive equipment, assistive technology devices, and/or other special accommodations? 12.a. [ Yes ] Do you have a waiver or profile for any part of your Service's physical fitness test? 12.b. [ Cardio EventCrunches/Sit-Ups, Push-Ups ] Which component(s) of your physical fitness test are waived/profiled? 13.a. [ No ] Do you have any problems wearing a gas mask, ballistic helmet, body armor, and/or chemical/biological protective garments? 14.a. [ No ] Have you ever been told by a health care provider that you SHOULD NOT receive an immunization for medical reasons? 15.a. [ No ] Do you have a permanent profile or an Assignment Limitation Code C? 16.a. [ Yes ] Are you on a temporary profile or limited duty? 16.b. [ Medical recommendation from for stomach issues ] Why? 17. [ 2 ] During the PAST 2 years, how many times have you been placed on a temporary profile or on limited duty? V. INDIVIDUAL MEDICAL READINESS (IMR) 1. [ No ] Do you have any allergies? 3. [ Not required ] Do you have red medical warning dog tags? 4. [ Yes ] Do you wear corrective lenses? 5. [ 1 ] How many pairs of glasses do you have? 6. [ Yes ] Do you have gas mask inserts? . BEHAVIORAL HEALTH (MHA) 1. a. [ None ] Over the PAST MONTH, what major life stressors have you experienced that are a cause of significant concern or make it difficult for you to do your work, take care of things at home, or get along with other people (for example, serious conflicts with others, relationship problems, or a legal, disciplinary or financial problem)? 2. a. [ Yes Anxiety/alcohol abuse ] In the PAST YEAR did you receive care for any mental health condition or concern such as, but not limited to post traumatic stress disorder (PTSD), depression, anxiety disorder, alcohol abuse or substance abuse? 3. [ Yes Propanalon 20mg,lexapro 20 mg ] What prescription or over-the counter medications (including herbals/supplements) for sleep, pain, combat stress, or a mental health problem are you CURRENTLY taking? 4. a. [ No ] In the past 12 months, have you gambled? 5. a. [ Never ] How often do you have a drink containing alcohol? 6. Have you ever had any experience that was so frightening, horrible, or upsetting that in the PAST MONTH, you: 6. a. [ No ] Have had nightmares about it or thought about it when you did not want to? 6. b. [ No ] Tried hard not to think about it or went out of your way to avoid situations that remind you of it? 6. c. [ No ] Were constantly on guard, watchful or easily startled? 6. d. [ No ] Billings numb or detached from others, activities, or your surroundings? 6. e. [ Not answered ] Billings guilt or unable to stop blaming yourself or others for the event(s) or any problems the event(s) may have caused? 7. Over the LAST 2 WEEKS, how often have you been bothered by the following problems? 7. a. [ Not at all ] Little interest or pleasure in doing things 7. b. [ Not at all ] Feeling down, depressed, or hopeless 8. [ No ] Would you like to schedule an appointment with a health care provider to discuss any health concern(s)? 9. [ No ] Are you interested in receiving information or assistance for a stress, emotional or alcohol concern? 10. [ No ] Are you interested in receiving assistance for a family or relationship concern? 11. [ No ] Would you like to schedule a visit with a tree specialist, mental health care provider, or a community support counselor? VII. FAMILY HISTORY AND LIFESTYLE (LIF) 1. [ Very Good ] Overall, how would you rate your health during the PAST MONTH? 2. [ Canc ] Member indicates that family members have the following problems 3. The following family members has/had a history of cancer: Melenoma: Mother Unknown Type of Cancer: Grandmother, Grandfather 6. [ Yes ] I participate in moderate intensity physical activites at least 2.5 hours, or a combination of moderate and vigorous aerobic activites, for at least 75 minutes per week. 7. In a typical week, I do physical activities specifically designed to STRENGTHEN my muscles: [ 2 ] Day(s) per week 8. [ propanalol 20 mg, lexapro 20 mg ] What prescriptions or bmag-irf-iyghhul medications are you CURRENTLY taking for health problems on a ROUTINE BASIS? 9. Which of the following products have you taken since your last PHA: None of the above 11. Think about the PAST 30 DAYS. How often did you eat/drink the following foods/beverages? [ 3 to 6 servings per week ] Fruits [ 1 serving per day ] Vegetables [ 1 serving per day ] Starchy Vegetables [ 3 to 6 servings per week ] Whole Grains [ 1 serving per day ] Dairy and Calcium Containing Foods [ Rarely or Never ] Fish [ 2 servings per day ] Lean Protein [ 3 to 6 servings per week ] Sugar-Sweetened Beverages ] Have you had a cholesterol check by a health patient centered care specialist within the PAST 5 YEARS? 13.a. In the PAST 30 DAYS, which of the following products have you used on at least one day? Electronic Cigarettes 13.b. How long have you been using tobacco products?: 1 to 5 years 14. [ No ] Are you interested in quitting tobacco? 16. [ No ] Are you regularly exposed to secondhand smoke? 17. [ 5 to less than 7 hours ] During the LAST 2 WEEKS, how many hours of sleep did you get on most days? 18. [ No ] During the LAST 2 WEEKS, have you felt impaired or unable to adequately perform due to sleepiness or poor quality sleep? 19. [ No ] Have you had any unexplained weight loss or gain since your last PHA? 20. Member is not at risk for sexually transmitted infections. 22. Since your last PHA, what, if anything, have you and your partner used to keep from getting ? [ My partner(s) or I intend to get in the next year. ] I am not actively taking steps to prevent as 23. [ No ] In the last year, have you or your partner had a scare, where you were not trying to get but were worried enough to use a home test? X. OTHER MEDICAL (OTH) 1. [ 4 ] Rate the amount of pain you have had, on average, over the PAST 24 HOURS 2. [ Yes ] Are you receiving treatment for pain? 3. [ Yes ] Since your last PHA, have you received care or treatment for any medical and/or mental health condition(s) from a civilian or non- facility? 4. List the condition(s) treated and where the care was provided: Conditions: Stomach issues, Lower back pain Where: [facility] 5. Member acknowledged responsibility for reporting health issues. 7. [ No ] Woud you like to schedule an appointment with a health care provider to discuss any health concerns? XI. SEPARATION AND CHCF 1. 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 PART B. RECORD REVIEW AND RECOMMENDATIONS I. RECORD REVIEWER INFORMATION 1. Last Name: WALDEMAR 2. First Name: TARUN 3. Middle Name: 4. Service Branch: [employer] 5. 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 EMAIL: [email or web address] 8. Facility: [facility] 9. Unit: [facility] 10. Address: [address] [place] [address] 11. State: [place] 12. Zip Code: [address] 13. Phone: [phone] 14. Date Record Review: II. MEDICAL SCREENING 1. 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 [ 5 feet 11 inches Date: ] member of the legislative assembly's most recently documented height 3. [ 225 pounds Date: ] member of the legislative assembly's most recently documented weight 4. [ 117/79 Date: ] member of the legislative assembly's most recently documented blood pressure reading 5. [ No ] Does the member of the legislative assembly have a history of abnormal blood pressure since their last PHA? 6. [ Yes ] Does the member of the legislative assembly have a laboratory test of sickle cell trait documented in their permanent medical record? 7. [ No Cholesterol Test Documented ] What is the date of the member of the legislative assembly's most recently documented cholesterol test? 9. [ Wellbutrin 300mg- started in 2022 for anxiety Propranolol-2022 for anxiety and high bp Hydroxycin 50mg- started 2022- sleep aid lexapro 20mg ] List of member of the legislative assembly's active medications listed in their permanent medical record 10. [ No ] Is there a discrepancy between the active medication record review and the member of the legislative assembly's self-reported list of medications? 11. 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 [ No ] Is there a discrepancy between the member of the legislative assembly's list of OUTSIDE care (from OTH5), and the OUTSIDE care found in the record? 13. 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 [ Not Answered ] Confirm that vaccine exemptions are listed in the medical record for each vaccine listed III. OCCUPATION-SPECIFIC EXAMINATIONS 2. 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 IV. FAMILY HISTORY AND LIFESTYLE 1. [ Yes ] Does the [id number] reflect the member of the legislative assembly's reported family history? VII. INDIVIDUAL MEDICAL READINESS 1. 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 2. 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 [ Classification: 1 ] Most recently documented dental exam 4. 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 5. 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 6. Does the member of the legislative assembly have the following laboratory tests documented in their permanent medical record? [ Yes ] HIV test within the PAST 24 months [ Yes ] G6PD results on file [ Yes ] Blood type and Rh on file [ Yes ] DNA test on file IX. ADDITIONAL RECORD REVIEWER COMMENTS 1. This record review indicates the potential need for provider notification or referral: Provider Notified 2. Additional comments about this record review that need to be forwarded to the Health Landscape Manager completing PART C: member stated they are currently under tx for hypertension, stomach problems. also stated in the past year they received care for anxiety and alcohol abuse. currently prescribed propranolol 20mg, Lexapro 20mg. Date Record Review Completed: PART C. HEALTH CARE PROVIDER I. MENTAL HEALTH ASSESSMENT (MHA) PROVIDER INFORMATION 1. Last Name: LISA 2. First Name: THUAN 3. Middle Name: 4. Service Branch: [facility] [place] 5. Status: Reservist 6. Title: Physician (, DO) 7. EMAIL: [email or web address] 8. Facility: [facility] 9. Unit: [address] [place], [place] [address] 10. Address: [address] [place] [address] 11. State: [place] 12. Zip Code: [address] 13. Phone: [phone] 14. Date HCP Review initiated: 1. Member marked that they did not have a concern or a difficulty with a major life stressor. 2. Address concerns identified on member questions 2 and 3. History of mental health care: Member indicated concern or yes Member's response: Anxiety/alcohol abuse Anxiety/alcohol abuse Provider's comments: . Medications: Member indicated concern or yes Member's response: Propanalon 20mg,lexapro 20 mg Propanalon 20mg,lexapro 20 mg Provider's comments: . 3. Member's AUDIT-C screening score was 0. (nothing required) 4. Member did not mady yes on two or more of questions 6a through 6e. 5. Member did not mady More than half the days or nearly every day on question 7a or 7b. 6. Suicide risk evaluation. 6. a. Ask: Over the past month, have you wished you were or wished you could go to sleep and not wake up?: No 6. b. Ask: Have you actually had any thoughts of killing yourself?: No 6. f. 1. Ask: In you lifetime, have you done anything, started to do anything, or prepared to do anything to end your life?: No 6. g. Further risk assessment comments: 7. Member states that they have not had thoughts or concerns over the past month that they might hurt or lose control with someone. 9. Summary of Provider's identified concerns needing referrals: None 11. Comments: 13. Supplemental services recommended/information provided: No supplemental services required Date MHA Certified: III. PERIODIC HEALTH ASSESSMENT (PHA) PROVIDER INFORMATION 1. Last Name: LISA 2. First Name: THUAN 3. Middle Name: 4. Service Branch: [employer] 5. 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 EMAIL: [email or web address] 8. Facility: [facility] 9. Unit: [address] [facility] 10. Address: [address] [place] 11. State: [place] 12. Zip Code: [address] 13. Phone: [phone] 14. Date HCP Review initiated: IV. PERIODIC HEALTH ASSESSMENT PROVIDER RECOMMENDATIONS and REFERRALS 1. Provider concerns with this assessment: No issues or concerns identified V. SUMMARY AND COMMENTS 1. Additional information summarizing findings during the member of the legislative assembly assessment: 2. Provider Comments: . INDIVIDUAL MEDICAL READINESS DISPOSITION DETERMINATION JONATHON: Ready DEN: Ready IMM: Ready LAB: Ready ME: Ready IMR Status: Fully Medically Ready VII. 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 Reference [facility] 6490.07 Yes (member of the legislative assembly DOES NOT currently have a medical condition that limits deployability) Date PHA Completed: END OF [id number] REPORT Impression:Meets?medical standards per RIAZ 48-123/MSD. Disposition:?No AF469 changes based on this encounter.[employer] Qualified. Extracted from:Title: BEH *Psychiatrist OP Follow Up Note Author: CHLOÉ LAUREN MD Date: 10/24/2326-Mar-23 Pt was referred for med mgmt for Alcohol Use DO, in early remission, and chronic anxiety and sleep issues that have persisted despite avoiding alcohol for 6 mo and doing well in recovery. ?Pt described panic-like attacks occurring 1-2x per week associated with sudden onset anxiety, tunnel vision, nausea, SOB, and tension. ?Pt denied sense of impending doom, and his worry about attacks and associated impairment is fairly mild. ?He expressed some hesitancy about driving, public places, and social events. ?Pt s father and brother are treated for MAYTE. ?He endorsed generalized symptoms including insomnia, restlessness, fidgetiness, intermittent nausea, and elevated BP; however, he denied excessive worry about multiple life areas, not meeting criteria for MAYTE. Dx of Unspecified Anxiety DO is assigned. ?Pt was agreeable with a trial of Lexapro for anxiety, starting with a low dose given his past adverse reaction to Zoloft. ?Benefit from Wellbutrin is questionable, and it may be contributing to insomnia, so will switch to the SR form and decrease the dose to 200mg. ?Pt will continue PRN hydroxyzine for sleep for now, but will consider alternative if sleep does not improve. ?HTN is inadequately controlled with Propranolol; will plan to switch to a first-line treatment once psychotropics are stable; increasing to 20mg TID in the interim. ?Pt to continue home BP checks. 07-May-23 Anxiety symptoms, avoidant behaviors, insomnia, and functioning have improved significantly with med change. ?Increasing Lexapro to 15mg for residual symptoms and tapering Wellbutrin with goal of stopping. ?BP at home is improving as well, and pt is decreasing Propranolol. ?Pt will continue to monitor BP at home with goal of stopping Propranolol. ?If BP does not continue to improve, may consider switch to a first line antihypertensive. ? 19-Jun-23 Anxiety and overall functioning continue to improve. ?Remains motivated for recovery. ?Ready to stop Wellbutrin. ?Lexapro is working well but he is having side effect of ED. ?Will start trial of Viagra. 21-Aug-23 Pt continues to do well in recovery, and he s functioning well. ?Anxiety has improved, though he continues to have residual symptoms. ?Increasing Lexapro to 20mg. 24-Oct-23 Pt reports anxiety is well managed, he remains active in recovery from alcohol, and is functioning well socially and occupationally. ?No med changes. ? ? ? Treatment Plan / Recommendations:?Meds/Labs: ??Continue?Lexapro?20mg daily ??Continue Hydroxyzine 50mg HS PRN sleep ??Continue?Propranolol 20mg?BID PRN anxiety ??Continue Viagra 50mg PRN 1 hr before sexual activity ??Discussed risk, benefits, and alternatives, side effects and any black box warnings of treatment recommendations. Patient understood and agreed with treatment plan and recommendations. ??Psychotherapy:?completed ??Next appointment: ?30-Aug-24 at?1345?ET? via [employer] ? 1.?Anxiety disorder, unspecified Ordered: propranolol(propranolol 20 mg oral tablet), 1 tab(s), Oral, BID, PRN anxiety, # 60 tab(s), 2 total refill(s), Maintenance, 1 tab(s) Oral BID,PRN:anxiety, Pharmacy: [facility]/pharmacy #[id number] [External Rx] ? 2.?Alcohol use disorder, in sustained remission ? 3.?Drug-induced erectile dysfunction Ordered: sildenafil(Viagra 50 mg oral tablet), 1 tab(s), Oral, Daily, 1 hour before sexual activity * max 10 per month*, # 10 tab(s), 5 total refill(s), Maintenance, 1 tab(s) Oral Daily,Instr:1 hour before sexual activity * max 10 per month*, Pharmacy: [facility]/pharmacy #[id number] [External Rx] ? Orders: hydrOXYzine(hydrOXYzine pamoate 50 mg oral capsule), 1 cap(s), Oral, Daily, PRN as needed for anxiety, # 15 cap(s), 2 total refill(s), Maintenance, may sub with tablets, 1 cap(s) Oral Daily,PRN:as needed for anxiety, Pharmacy: [facility]/pharmacy #[id number] [External Rx] escitalopram(Lexapro 20 mg oral tablet), 1 tab(s), Oral, Daily, # 30 tab(s), 2 total refill(s), Maintenance, 1 tab(s) Oral Daily, Pharmacy: [facility]/pharmacy #[id number] [External Rx] Prognosis: Good Benefits, Risks, Alternatives Discussed: Yes Treatment Plan: Continue current medications, Encourage balanced diet, Exercise 4-5 times / week, Practice good sleep hygiene, Continue current psychotherapy Number of Visits Expected: Ongoing Maintenance Target Symptoms: Anxiety, Insomnia, Substance use Goals of Treatment: Improve overall functioning, Decrease in target symptoms Methods of Monitoring Outcomes: Reduced Audit-C score, Reduced MAYTE-7 score, Reduced PHQ-9 score Evaluation Type: By complexity ? Objectives of Treatment #1: Maintain sobriety Goals of Treatment #1: Improve overall functioning Interventions of Treatment #1: Attend [facility]APT OP group; continue psychotherapy Objective #1 Goal Status: Progressing, continue Objective #1 Start Date: 02/12/23 ? ? ? Treatment Planning Requirements: 1) Developed treatment plan collaboratively with patient, with agreement on plan of care and goals, 2) Patient agrees to attend appointments, engage in treatment, discuss any concerns in order to meet treatment goals, 3) Provider will leverage patient strengths and limit potential barriers to treatment Extracted from:Title: [facility] *Psychiatrist OP Follow Up Note Author: CHLOÉ LAUREN MD Date: 08/21/2326-Mar-23 Pt was referred for med mgmt for Alcohol Use DO, in early remission, and chronic anxiety and sleep issues that have persisted despite avoiding alcohol for 6 mo and doing well in recovery. ?Pt described panic-like attacks occurring 1-2x per week associated with sudden onset anxiety, tunnel vision, nausea, SOB, and tension. ?Pt denied sense of impending doom, and his worry about attacks and associated impairment is fairly mild. ?He expressed some hesitancy about driving, public places, and social events. ?Pt s father and brother are treated for MAYTE. ?He endorsed generalized symptoms including insomnia, restlessness, fidgetiness, intermittent nausea, and elevated BP; however, he denied excessive worry about multiple life areas, not meeting criteria for MAYTE. Dx of Unspecified Anxiety DO is assigned. ?Pt was agreeable with a trial of Lexapro for anxiety, starting with a low dose given his past adverse reaction to Zoloft. ?Benefit from Wellbutrin is questionable, and it may be contributing to insomnia, so will switch to the SR form and decrease the dose to 200mg. ?Pt will continue PRN hydroxyzine for sleep for now, but will consider alternative if sleep does not improve. ?HTN is inadequately controlled with Propranolol; will plan to switch to a first-line treatment once psychotropics are stable; increasing to 20mg TID in the interim. ?Pt to continue home BP checks. 07-May-23 Anxiety symptoms, avoidant behaviors, insomnia, and functioning have improved significantly with med change. ?Increasing Lexapro to 15mg for residual symptoms and tapering Wellbutrin with goal of stopping. ?BP at home is improving as well, and pt is decreasing Propranolol. ?Pt will continue to monitor BP at home with goal of stopping Propranolol. ?If BP does not continue to improve, may consider switch to a first line antihypertensive. ? 19-Jun-23 Anxiety and overall functioning continue to improve. ?Remains motivated for recovery. ?Ready to stop Wellbutrin. ?Lexapro is working well but he is having side effect of ED. ?Will start trial of Viagra. 21-Aug-23 Pt continues to do well in recovery, and he s functioning well. ?Anxiety has improved, though he continues to have residual symptoms. ?Increasing Lexapro to 20mg. ? ? ? Treatment Plan / Recommendations:?Meds/Labs: ??Increase?Lexapro?to 20mg daily ??Continue Hydroxyzine 50mg HS PRN sleep ??Continue?Propranolol to 20mg?BID-TID ??Continue Viagra 50mg PRN 1 hr before sexual activity ??Discussed risk, benefits, and alternatives, side effects and any black box warnings of treatment recommendations. Patient understood and agreed with treatment plan and recommendations. ??Psychotherapy: continue with?ADAPT?aftercare ??Next appointment: ?24-Oct-23 at?1345?ET? via [employer] ? 1.?Alcohol Use Disorder, severe, in early remission ? 2.?Anxiety disorder, unspecified Ordered: escitalopram(Lexapro 20 mg oral tablet), 1 tab(s), Oral, Daily, # 30 tab(s), 2 total refill(s), Maintenance, 1 tab(s) Oral Daily, Pharmacy: [facility]/pharmacy #[id number] [External Rx] propranolol(propranolol 20 mg oral tablet), 1 tab(s), Oral, BID, PRN anxiety, # 60 tab(s), 1 total refill(s), Maintenance, 1 tab(s) Oral BID,PRN:anxiety, Pharmacy: [facility]/pharmacy #[id number] [External Rx] ? 3.?Drug-induced erectile dysfunction Ordered: sildenafil(Viagra 50 mg oral tablet), 1 tab(s), Oral, Daily, 1 hour before sexual activity * max 10 per month*, # 10 tab(s), 1 total refill(s), Maintenance, 1 tab(s) Oral Daily,Instr:1 hour before sexual activity * max 10 per month*, Pharmacy: [facility]/pharmacy #[id number] [External Rx] ? Orders: hydrOXYzine(hydrOXYzine pamoate 50 mg oral capsule), 1 cap(s), Oral, Daily, PRN as needed for anxiety, # 30 cap(s), 1 total refill(s), Maintenance, may sub with tablets, 1 cap(s) Oral Daily,PRN:as needed for anxiety, Pharmacy: [facility]/pharmacy #[id number] [External Rx] Prognosis: Good Benefits, Risks, Alternatives Discussed: Yes Treatment Plan: Encourage balanced diet, Exercise 4-5 times / week, Practice good sleep hygiene, Continue current psychotherapy Number of Visits Expected: 1-3 Target Symptoms: Anxiety, Insomnia, Substance use Goals of Treatment: Improve overall functioning, Decrease in target symptoms Methods of Monitoring Outcomes: Reduced Audit-C score, Reduced MAYTE-7 score, Reduced PHQ-9 score Evaluation Type: By complexity ? Objectives of Treatment #1: Maintain sobriety Goals of Treatment #1: Improve overall functioning Interventions of Treatment #1: Attend [facility]T OP group; continue psychotherapy Objective #1 Goal Status: Progressing, continue Objective #1 Start Date: 02/12/23 ? ? ? Treatment Planning Requirements: 1) Developed treatment plan collaboratively with patient, with agreement on plan of care and goals, 2) Patient agrees to attend appointments, engage in treatment, discuss any concerns in order to meet treatment goals, 3) Provider will leverage patient strengths and limit potential barriers to treatment Extracted from:Title: BEH *Psychiatrist OP Follow Up Note Author: CHLOÉ LAUREN MD Date: 06/19/2326-Mar-23 Pt was referred for med mgmt for Alcohol Use DO, in early remission, and chronic anxiety and sleep issues that have persisted despite avoiding alcohol for 6 mo and doing well in recovery. ?Pt described panic-like attacks occurring 1-2x per week associated with sudden onset anxiety, tunnel vision, nausea, SOB, and tension. ?Pt denied sense of impending doom, and his worry about attacks and associated impairment is fairly mild. ?He expressed some hesitancy about driving, public places, and social events. ?Pt s father and brother are treated for MAYTE. ?He endorsed generalized symptoms including insomnia, restlessness, fidgetiness, intermittent nausea, and elevated BP; however, he denied excessive worry about multiple life areas, not meeting criteria for MAYTE. Dx of Unspecified Anxiety DO is assigned. ?Pt was agreeable with a trial of Lexapro for anxiety, starting with a low dose given his past adverse reaction to Zoloft. ?Benefit from Wellbutrin is questionable, and it may be contributing to insomnia, so will switch to the SR form and decrease the dose to 200mg. ?Pt will continue PRN hydroxyzine for sleep for now, but will consider alternative if sleep does not improve. ?HTN is inadequately controlled with Propranolol; will plan to switch to a first-line treatment once psychotropics are stable; increasing to 20mg TID in the interim. ?Pt to continue home BP checks. 07-May-23 Anxiety symptoms, avoidant behaviors, insomnia, and functioning have improved significantly with med change. ?Increasing Lexapro to 15mg for residual symptoms and tapering Wellbutrin with goal of stopping. ?BP at home is improving as well, and pt is decreasing Propranolol. ?Pt will continue to monitor BP at home with goal of stopping Propranolol. ?If BP does not continue to improve, may consider switch to a first line antihypertensive. ? 19-Jun-23 Anxiety and overall functioning continue to improve. ?Remains motivated for recovery. ?Ready to stop Wellbutrin. ?Lexapro is working well but he is having side effect of ED. ?Will start trial of Viagra. ? ? ? Treatment Plan / Recommendations:?Meds/Labs: ??Continue?Lexapro?to 15mg daily ??Stop?Wellbutrin SR?100mg ??Continue Hydroxyzine 50mg HS PRN sleep ??Continue?Propranolol to 20mg?BID-TID ??Start Viagra 50mg PRN 1 hr before sexual activity. ??Discussed risk, benefits, and alternatives, side effects and any black box warnings of treatment recommendations. Patient understood and agreed with treatment plan and recommendations. ??Psychotherapy: continue with?ADAPT level 1 ??Next appointment: ?21-Aug-23 at?1245?ET? via [employer] ? 1.?Anxiety disorder, unspecified Ordered: propranolol(propranolol 20 mg oral tablet), 1 tab(s), Oral, TID, PRN anxiety, # 90 tab(s), 1 total refill(s), Maintenance, 1 tab(s) Oral TID,PRN:anxiety, Pharmacy: [facility]/pharmacy #[id number] [External Rx] ? 2.?Alcohol Use Disorder, severe, in early remission ? 3.?Drug-induced erectile dysfunction Ordered: sildenafil(Viagra 50 mg oral tablet), 1 tab(s), Oral, Daily, 1 hour before sexual activity * max 10 per month*, # 10 tab(s), 1 total refill(s), Maintenance, 1 tab(s) Oral Daily,Instr:1 hour before sexual activity * max 10 per month*, Pharmacy: [facility]/pharmacy #[id number] [External Rx] ? Orders: hydrOXYzine(hydrOXYzine pamoate 50 mg oral capsule), 1 cap(s), Oral, Daily, PRN as needed for anxiety, # 30 cap(s), 1 total refill(s), Maintenance, may sub with tablets, 1 cap(s) Oral Daily,PRN:as needed for anxiety, Pharmacy: [facility] #[id number] [External Rx] escitalopram(Lexapro 5 mg oral tablet), 3 tab(s), Oral, Daily, # 90 tab(s), 1 total refill(s), Maintenance, 3 tab(s) Oral Daily, Pharmacy: [id number] [External Rx] Prognosis: Good Benefits, Risks, Alternatives Discussed: Yes Treatment Plan: Encourage balanced diet, Exercise 4-5 times / week, Practice good sleep hygiene, Continue current psychotherapy Number of Visits Expected: 1-3 Target Symptoms: Anxiety, Insomnia, Substance use Goals of Treatment: Improve overall functioning, Decrease in target symptoms Methods of Monitoring Outcomes: Reduced Audit-C score, Reduced MAYTE-7 score, Reduced PHQ-9 score Evaluation Type: By complexity ? Objectives of Treatment #1: Maintain sobriety Goals of Treatment #1: Improve overall functioning Interventions of Treatment #1: Attend [facility] OP group; continue psychotherapy Objective #1 Goal Status: Progressing, continue Objective #1 Start Date: 02/12/23 ? ? ? Treatment Planning Requirements: 1) Developed treatment plan collaboratively with patient, with agreement on plan of care and goals, 2) Patient agrees to attend appointments, engage in treatment, discuss any concerns in order to meet treatment goals, 3) Provider will leverage patient strengths and limit potential barriers to treatment Extracted from:Title: BEH *Psychiatrist OP Follow Up Note Author: CHLOÉ LAUREN MD Date: 05/07/23 1.?Anxiety disorder, unspecified 26-Mar-23 Pt was referred for med mgmt for Alcohol Use DO, in early remission, and chronic anxiety and sleep issues that have persisted despite avoiding alcohol for 6 mo and doing well in recovery. ?Pt described panic-like attacks occurring 1-2x per week associated with sudden onset anxiety, tunnel vision, nausea, SOB, and tension. ?Pt denied sense of impending doom, and his worry about attacks and associated impairment is fairly mild. ?He expressed some hesitancy about driving, public places, and social events. ?Pt s father and brother are treated for MAYTE. ?He endorsed generalized symptoms including insomnia, restlessness, fidgetiness, intermittent nausea, and elevated BP; however, he denied excessive worry about multiple life areas, not meeting criteria for MAYTE. Dx of Unspecified Anxiety DO is assigned. ?Pt was agreeable with a trial of Lexapro for anxiety, starting with a low dose given his past adverse reaction to Zoloft. ?Benefit from Wellbutrin is questionable, and it may be contributing to insomnia, so will switch to the SR form and decrease the dose to 200mg. ?Pt will continue PRN hydroxyzine for sleep for now, but will consider alternative if sleep does not improve. ?HTN is inadequately controlled with Propranolol; will plan to switch to a first-line treatment once psychotropics are stable; increasing to 20mg TID in the interim. ?Pt to continue home BP checks. 07-May-23 Anxiety symptoms, avoidant behaviors, insomnia, and functioning have improved significantly with med change. ?Increasing Lexapro to 15mg for residual symptoms and tapering Wellbutrin with goal of stopping. ?BP at home is improving as well, and pt is decreasing Propranolol. ?Pt will continue to monitor BP at home with goal of stopping Propranolol. ?If BP does not continue to improve, may consider switch to a first line antihypertensive. ? Treatment Plan / Recommendations:?Meds/Labs: ??Increase?Lexapro?to 15mg daily ??Decrease?Wellbutrin SR?to 100mg?qam ??Continue Hydroxyzine 50mg HS PRN sleep ??Decrease?Propranolol to 20mg?BID ??Discussed risk, benefits, and alternatives, side effects and any black box warnings of treatment recommendations. Patient understood and agreed with treatment plan and recommendations. ??Psychotherapy: continue with?ADAPT level 1 ??Next appointment: ?19-Jun-23 at 1245 ET? via [employer] ? Ordered: escitalopram(Lexapro 5 mg oral tablet), 3 tab(s), Oral, Daily, # 90 tab(s), 1 total refill(s), Maintenance, 3 tab(s) Oral Daily, Pharmacy: [facility]/pharmacy #[id number] [External Rx] propranolol(propranolol 20 mg oral tablet), 1 tab(s), Oral, BID, PRN anxiety, # 60 tab(s), 1 total refill(s), Maintenance, 1 tab(s) Oral BID,PRN:anxiety, Pharmacy: [facility]/pharmacy #[id number] [External Rx] buPROPion(Wellbutrin SR 100 mg/12 hours oral tablet, extended release), 1 tab(s), Oral, every morning, # 30 tab(s), 1 total refill(s), Maintenance, 1 tab(s) Oral every morning, Pharmacy: [facility]/pharmacy #[id number] [External Rx] ? 2.?Alcohol Use Disorder, severe, in early remission ? 3.?Essential (primary) hypertension Ordered: propranolol(propranolol 20 mg oral tablet), 1 tab(s), Oral, BID, PRN anxiety, # 60 tab(s), 1 total refill(s), Maintenance, 1 tab(s) Oral BID,PRN:anxiety, Pharmacy: [facility]/pharmacy #[id number] [External Rx] ? 4.?Insomnia, unspecified Ordered: hydrOXYzine(hydrOXYzine pamoate 50 mg oral capsule), 1 cap(s), Oral, Daily, PRN as needed for anxiety, # 30 cap(s), 1 total refill(s), Maintenance, may sub with tablets, 1 cap(s) Oral Daily,PRN:as needed for anxiety, Pharmacy: [facility]/pharmacy #[id number] [External Rx] ? Prognosis: Fair Benefits, Risks, Alternatives Discussed: Yes Treatment Plan: Encourage balanced diet, Exercise 4-5 times / week, Practice good sleep hygiene, Continue current psychotherapy Number of Visits Expected: 1-3 Target Symptoms: Anxiety, Insomnia, Substance use Goals of Treatment: Improve overall functioning, Decrease in target symptoms Methods of Monitoring Outcomes: Reduced Audit-C score, Reduced MAYTE-7 score, Reduced PHQ-9 score Evaluation Type: By complexity ? Objectives of Treatment #1: Maintain sobriety Goals of Treatment #1: Improve overall functioning Interventions of Treatment #1: Attend [facility] OP group; continue psychotherapy Objective #1 Goal Status: Progressing, continue Objective #1 Start Date: 02/12/23 ? ? ? Treatment Planning Requirements: 1) Developed treatment plan collaboratively with patient, with agreement on plan of care and goals, 2) Patient agrees to attend appointments, engage in treatment, discuss any concerns in order to meet treatment goals, 3) Provider will leverage patient strengths and limit potential barriers to treatment Extracted from:Title: [facility] Author: ANDREA ANDERSON MD Date: 10/01/22 EXAM, OCCUPATIONAL, [facility] OR SEPARATION FROM [email or web address] UN[employer]MED SERVICE, LONG non-PRP-- [facility] exam; ?Reviewed administrative nature of today s encounter. ?[facility] HCP terminal audiogram profile is?pending 03 OCT 2022; ?Reviewed member s 2807 positioned against review of [employer]ianca and [employer] entries. ?Concur with entirety of member s identified issues. ?Isolated additional issues identified (see A&P). Review?did not identify concerns that meet MSD criteria or warrant consideration of an AMRO referral. Forms 2807 and 2808 will be completed via [facility] following HCP audiogram completion. RTC as needed for additional care, PVUA. Patient denies any thoughts or concerns consistent with Suicidal or Homicidal Ideations.; prev med : discussed infection control with hand washing, 100% seat-belt use for safety;?discussed med use, side effects and warnings given, no additional profile;? Addendum by ANDREA ANDERSON MD on October 03, 2022 08:59:37 CDT ? DIANE - Privacy?[facility] - [id number] - [employer] - User: [email or web address]?Log Off SEPARATION MENTAL HEALTH ASSESSMENT ? Date: ? 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 Recommended referal(s): ? ? Referral Time Comments: ? ? SECTION II. MENTAL HEALTH ASSESSMENT (MHA) PROVIDER INFORMATION 1. Last Name: Arron 2. First Name: Andrea 3. Middle Name: Wes 4. Service Branch: [employer] 5. 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 EMAIL: [email or web address] 8. Facility: [facility] 9. Unit: 2 [facility] 10. Address: [address] [place] [address] 11. State: [facility]. Zip Code: [address] 13. Date: 1.? Deployer marked that they have a concern or a difficulty with a major life stressor: Member denies any specific psychological needs, no SI/HI, not a danger to self/others ? ? Additional info: family/relationship ? ? Referral is not indicated because there is no significant impairment. ? 2.? Address concerns identified on deployer questions 2 and 3. ? ? History of mental health care: N/A ? Deployer's response:? Provider's comments: ? ? Medications: N/A ? Deployer's response:? Provider's comments: ? 3.? Deployer's AUDIT-C screening score was 1. (nothing required) ? 4.? Deployer did not mady yes on three or more of questions 5a through 5e. 5.? Deployer did not mady More than half the days or nearly every day on question 6a or 6b. ? 6.a.? Deployer has not wished they were or wished they could go to sleep and not wake up. 6.b.? Deployer has not actually had thoughts of killing themself. 6.f.1.? Deployer has not ever done anything, started to do anything, or prepared to do anything to end their life. 6.g. Further risk assessment: Member denies any specific psychological needs, no SI/HI, not a danger to self/others 6.h.? Deployer does not pose a current risk for harm to self. ? 7.? Deployer states that they have not had thoughts or concerns over the past month that they might hurt or lose control with someone. ? ? 13. Supplemental services recommended/information provided: ? ? No Supplemental Services Required 1. a. [? family/relationship ] Over the PAST MONTH, which major life stressors, if any, have you experienced that are a cause of significant concern or make it difficult for you to do your work, take care of things at home, or get along with other people? 1. b. [ No ]? Are you currently in treatment or getting professional help for this concern? ? 2. [? No? ] In the PAST YEAR did you receive care for any mental health condition or concern such as, but not limited to post traumatic stress disorder (PTSD), depression, anxiety disorder, alcohol abuse or substance abuse? ? 3. [? None? ] What prescription or over-the counter medications (including herbals/supplements) for sleep, pain, combat stress, or a mental health problem are you CURRENTLY taking? ? 4. a. [ Monthly ] How often do you have a drink containing alcohol? 4. b. [ 1 or 2 ] How many drinks containing alcohol do you have on a typical day when you are drinking? 4. c. [ Never ] How often do you have six or more drinks on one occasion? ? 5. Have you ever had any experience that was so frightening, horrible, or upsetting that in the PAST MONTH, you: 5. a. [ No ] Have had nightmares about it or thought about it when you did not want to? 5. b. [ No ] Tried hard not to think about it or went out of your way to avoid situations that remind you of it? 5. c. [ No ] Were constantly on guard, watchful or easily startled? 5. d. [ No ] [place] numb or detached from others, activities, or your surroundings? 5. e. [ No ] Bill[place] guilt or unable to stop blaming yourself or others for the event(s) or any problems the event(s) may have caused? ? 6. Over the LAST 2 WEEKS, how often have you been bothered by the following problems? 6. a. [ Not at all ] Little interest or pleasure in doing things 6. b. [ Not at all ] Feeling down, depressed, or hopeless ? 7. [ No ] Would you like to schedule an appointment with a health care provider to discuss any health concern(s)? 8. [ No ] Are you interested in receiving information or assistance for a stress, emotional or alcohol concern? 9. [ No ] Are you interested in receiving assistance for a family or relationship concern? 10. [ No ] Would you like to schedule a visit with a tree specialist or a community support counselor? ? Note [facility] HCP audiogram could not be performed prior to date of separation (end of contract) 04 OCT 2022 (audiogram booths inoperative with unknown date of repair);? member briefed of this by [facility] coordinator, and post-separation [facility] audiogram evaluation can be performed as needed Extracted from:Title: PCPF Author: CINDY DRUMMOND MD Date: 08/27/22 1.?Admission certification approved MEMBER IS MEDICALLY QUALIFIED FOR DUTY Members medical records have been reviewed [place] GABY 48-123 Chapter 5 and MEDICAL STANDARDS DIRECTORY (MSD) for Continued Service (Retention Standards), no disqualifying defects were found. Member is World-Wide Qualified and cleared for Continued Service.? Member is not on ALC Code C, X, or Y. ? [employer] approval is clearance to apply for the [employer] program, it does not constitute acceptance by the applicable [employer] [place] [employer] (ARC) IMR: Yellow for Td due.? ? Non-Flyer; Not PRP; Not AUoF? CINDY Fuentes. MD BHANU, [facility], [facility], [facility] ? 15?minutes spent reviewing medical records, examining patient, educating patient and writing clinical note.? 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 Recommended continued prev-med practices/immunizations ? F/u prn ER vs RTC precautions provided PVUA ? ? ? Ordered: HIV-1/O/2 EPI 10496 Repository Sample EPI [id number] ? 2.?ASSESSMENT, POST DEPLOYMENT, DOCUMENTED ON [id number] ([facility]) ? 07/21/2024 [id number] AMDS Assessment and Plan Extracted from:Title : BEH *Psychiatrist OP Follow Up Note Author: CHLOÉ LAUREN MD Date: 04/30/2426-Mar-23 Pt was referred for med mgmt for Alcohol Use DO, in early remission, and chronic anxiety and sleep issues that have persisted despite avoiding alcohol for 6 mo and doing well in recovery. ?Pt described panic-like attacks occurring 1-2x per week associated with sudden onset anxiety, tunnel vision, nausea, SOB, and tension. ?Pt denied sense of impending doom, and his worry about attacks and associated impairment is fairly mild. ?He expressed some hesitancy about driving, public places, and social events. ?Pt s father and brother are treated for MAYTE. ?He endorsed generalized symptoms including insomnia, restlessness, fidgetiness, intermittent nausea, and elevated BP; however, he denied excessive worry about multiple life areas, not meeting criteria for MAYTE. Dx of Unspecified Anxiety DO is assigned. ?Pt was agreeable with a trial of Lexapro for anxiety, starting with a low dose given his past adverse reaction to Zoloft. ?Benefit from Wellbutrin is questionable, and it may be contributing to insomnia, so will switch to the SR form and decrease the dose to 200mg. ?Pt will continue PRN hydroxyzine for sleep for now, but will consider alternative if sleep does not improve. ?HTN is inadequately controlled with Propranolol; will plan to switch to a first-line treatment once psychotropics are stable; increasing to 20mg TID in the interim. ?Pt to continue home BP checks. 07-May-23 Anxiety symptoms, avoidant behaviors, insomnia, and functioning have improved significantly with med change. ?Increasing Lexapro to 15mg for residual symptoms and tapering Wellbutrin with goal of stopping. ?BP at home is improving as well, and pt is decreasing Propranolol. ?Pt will continue to monitor BP at home with goal of stopping Propranolol. ?If BP does not continue to improve, may consider switch to a first line antihypertensive. ? 19-Jun-23 Anxiety and overall functioning continue to improve. ?Remains motivated for recovery. ?Ready to stop Wellbutrin. ?Lexapro is working well but he is having side effect of ED. ?Will start trial of Viagra. 21-Aug-23 Pt continues to do well in recovery, and he s functioning well. ?Anxiety has improved, though he continues to have residual symptoms. ?Increasing Lexapro to 20mg. 24-Oct-23 Pt reports anxiety is well managed, he remains active in recovery from alcohol, and is functioning well socially and occupationally. ?No med changes. 23-Jan-24 Anxiety DO and alcohol use DO remain in full remission. ?MAYTE-7 score decreased from 10 to 2. Pt continues to function well and remains stable on medications. ?No med changes. 30-Apr-24 Pt continues to do well in recovery from alcohol. ?Anxiety symptoms are well-managed with current regimen, and he is overall functioning well. ?BP control has worsened, but primary care intake is not scheduled until October. ?Pt was advised he can take up to 80mg of Propranolol a day as needed until he can be seen by primary care. ? ? ? Treatment Plan / Recommendations:?Meds/Labs: ??Continue?Lexapro?20mg daily ??Continue Hydroxyzine 50mg HS PRN sleep ??Continue?Propranolol 20mg?BID-QID PRN anxiety and BP ??Continue Viagra 50mg PRN 1 hr before sexual activity ??Discussed risk, benefits, and alternatives, side effects and any black box warnings of treatment recommendations. Patient understood and agreed with treatment plan and recommendations. ??Psychotherapy:?completed ??Next appointment: ?30-Jul-24 at?1300?ET? via [facility] [employer] ? 1.?Alcohol Use Disorder, severe, in full remission ? 2.?Anxiety disorder, unspecified Ordered: escitalopram(Lexapro 20 mg oral tablet), 1 tab(s), Oral, Daily, # 30 tab(s), 2 total refill(s), Maintenance, 1 tab(s) Oral Daily, Pharmacy: [facility]/pharmacy #[id number] [External Rx] propranolol(propranolol 20 mg oral tablet), 1 tab(s), Oral, BID, PRN anxiety, # 60 tab(s), 2 total refill(s), Maintenance, 1 tab(s) Oral BID,PRN:anxiety, Pharmacy: [facility]/pharmacy #[id number] [External Rx] ? 3.?Drug-induced erectile dysfunction Ordered: sildenafil(Viagra 50 mg oral tablet), 1 tab(s), Oral, Daily, 1 hour before sexual activity * max 10 per month*, # 10 tab(s), 5 total refill(s), Maintenance, 1 tab(s) Oral Daily,Instr:1 hour before sexual activity * max 10 per month*, Pharmacy: [facility]/pharmacy #[id number] [External Rx] ? Orders: hydrOXYzine(hydrOXYzine pamoate 50 mg oral capsule), 1 cap(s), Oral, Daily, PRN as needed for anxiety, # 15 cap(s), 2 total refill(s), Maintenance, may sub with tablets, 1 cap(s) Oral Daily,PRN:as needed for anxiety, Pharmacy: [facility]/pharmacy #[id number] [External Rx] Prognosis: Good Benefits, Risks, Alternatives Discussed: Yes Treatment Plan: Continue current medications, Encourage balanced diet, Exercise 4-5 times / week, Practice good sleep hygiene Number of Visits Expected: Ongoing Maintenance Target Symptoms: Anxiety, Insomnia, Substance use Goals of Treatment: Improve overall functioning, Decrease in target symptoms Methods of Monitoring Outcomes: Reduced Audit-C score, Reduced MAYTE-7 score Evaluation Type: By complexity ? Objectives of Treatment #1: Maintain sobriety Goals of Treatment #1: Improve overall functioning Interventions of Treatment #1: Attend [facility] OP group; continue psychotherapy Objective #1 Goal Status: Goal met Objective #1 Start Date: 02/12/23 ? ? ? Treatment Planning Requirements: 1) Developed treatment plan collaboratively with patient, with agreement on plan of care and goals, 2) Patient agrees to attend appointments, engage in treatment, discuss any concerns in order to meet treatment goals, 3) Provider will leverage patient strengths and limit potential barriers to treatment Extracted from:Title: BEH *Psychiatrist OP Follow Up Note Author: CHLOÉ LAUREN MD Date: 01/23/2426-Mar-23 Pt was referred for med mgmt for Alcohol Use DO, in early remission, and chronic anxiety and sleep issues that have persisted despite avoiding alcohol for 6 mo and doing well in recovery. ?Pt described panic-like attacks occurring 1-2x per week associated with sudden onset anxiety, tunnel vision, nausea, SOB, and tension. ?Pt denied sense of impending doom, and his worry about attacks and associated impairment is fairly mild. ?He expressed some hesitancy about driving, public places, and social events. ?Pt s father and brother are treated for MAYTE. ?He endorsed generalized symptoms including insomnia, restlessness, fidgetiness, intermittent nausea, and elevated BP; however, he denied excessive worry about multiple life areas, not meeting criteria for MAYTE. Dx of Unspecified Anxiety DO is assigned. ?Pt was agreeable with a trial of Lexapro for anxiety, starting with a low dose given his past adverse reaction to Zoloft. ?Benefit from Wellbutrin is questionable, and it may be contributing to insomnia, so will switch to the SR form and decrease the dose to 200mg. ?Pt will continue PRN hydroxyzine for sleep for now, but will consider alternative if sleep does not improve. ?HTN is inadequately controlled with Propranolol; will plan to switch to a first-line treatment once psychotropics are stable; increasing to 20mg TID in the interim. ?Pt to continue home BP checks. 07-May-23 Anxiety symptoms, avoidant behaviors, insomnia, and functioning have improved significantly with med change. ?Increasing Lexapro to 15mg for residual symptoms and tapering Wellbutrin with goal of stopping. ?BP at home is improving as well, and pt is decreasing Propranolol. ?Pt will continue to monitor BP at home with goal of stopping Propranolol. ?If BP does not continue to improve, may consider switch to a first line antihypertensive. ? 19-Jun-23 Anxiety and overall functioning continue to improve. ?Remains motivated for recovery. ?Ready to stop Wellbutrin. ?Lexapro is working well but he is having side effect of ED. ?Will start trial of Viagra. 21-Aug-23 Pt continues to do well in recovery, and he s functioning well. ?Anxiety has improved, though he continues to have residual symptoms. ?Increasing Lexapro to 20mg. 24-Oct-23 Pt reports anxiety is well managed, he remains active in recovery from alcohol, and is functioning well socially and occupationally. ?No med changes. 23-Jan-24 Anxiety DO and alcohol use DO remain in full remission. ?MAYTE-7 score decreased from 10 to 2. Pt continues to function well and remains stable on medications. ?No med changes. ? ? ? Treatment Plan / Recommendations:?Meds/Labs: ??Continue?Lexapro?20mg daily ??Continue Hydroxyzine 50mg HS PRN sleep ??Continue?Propranolol 20mg?BID PRN anxiety ??Continue Viagra 50mg PRN 1 hr before sexual activity ??Discussed risk, benefits, and alternatives, side effects and any black box warnings of treatment recommendations. Patient understood and agreed with treatment plan and recommendations. ??Psychotherapy:?completed ??Next appointment: ?30-Apr-24 at?1345?ET? via [facility] [employer] [facility] ? 1.?Alcohol Use Disorder, severe, in full remission 2.?Anxiety disorder, unspecified 3.?Drug-induced erectile dysfunction Orders: escitalopram(Lexapro 20 mg oral tablet), 1 tab(s), Oral, Daily, # 30 tab(s), 2 total refill(s), Maintenance, 1 tab(s) Oral Daily, Pharmacy: [facility]/pharmacy #[id number] [External Rx] propranolol(propranolol 20 mg oral tablet), 1 tab(s), Oral, BID, PRN anxiety, # 60 tab(s), 2 total refill(s), Maintenance, 1 tab(s) Oral BID,PRN:anxiety, Pharmacy: [facility]/pharmacy #[id number] [External Rx] Prognosis: Good Benefits, Risks, Alternatives Discussed: Yes Treatment Plan: Continue current medications, Encourage balanced diet, Exercise 4-5 times / week, Practice good sleep hygiene Number of Visits Expected: Ongoing Maintenance Target Symptoms: Anxiety, Insomnia, Substance use Goals of Treatment: Improve overall functioning, Decrease in target symptoms Methods of Monitoring Outcomes: Reduced Audit-C score, Reduced MAYTE-7 score, Reduced PHQ-9 score Evaluation Type: By complexity ? Objectives of Treatment #1: Maintain sobriety Goals of Treatment #1: Improve overall functioning Interventions of Treatment #1: Attend [facility] OP group; continue psychotherapy Objective #1 Goal Status: Goal met Objective #1 Start Date: 02/12/23 ? ? ? Treatment Planning Requirements: 1) Developed treatment plan collaboratively with patient, with agreement on plan of care and goals, 2) Patient agrees to attend appointments, engage in treatment, discuss any concerns in order to meet treatment goals, 3) Provider will leverage patient strengths and limit potential barriers to treatment Extracted from:Title: PHA / MHA / Audio / Optometry Author: OLGA MULTANI Date: 12/18/23 mbr came in for appt Addendum by OSMANI LUGO on December 18, 2023 09:53 EDT History of Refractive Surgery- No?Contact Lenses- N/A?Enrolled in Contact Lens Program- Yes?Gas Mask Inserts ordered- Yes?Current SRX on file- _ DVA (uncorrected) OD: 20/200 OS:?20/200 DVA (Corrected) OD: 20/20 OS: 20/20 NVA (uncorrected) OD: 20/30 OS: 20/30 NVA (Corrected) OD: 20/20 OS: 20/20 Optometry findings meet standards- Yes Addendum by ELIE REINA on December 18, 2023 10:05 EDT ?Vitals: Blood Pressure:??131/80 Heart Rate:68 Height: 180 Weight: 220 BMI: Medications: Propranolol-2022 for anxiety and high bp Hydroxycin 50mg- started 2022- sleep aid lexapro 20mg Chronic Problems: ADHD ADJUSTMENT DISORDER W/ ANXIETY Alcohol dependence, uncomplicated SF 507: _ Comments: None Addendum by THUAN GONZALEZ on December 18, 2023 10:49 EDT Chief Complaint: Member here for annual PHA.?No acute complaints.?IMR?green. HEENT:?Normal Joints:?Normal Lungs:?Normal Heart:?Normal Comments: ANNUAL PERIODIC HEALTH ASSESSMENT I. 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 Last Name: YAHAIRAJEFFREY 2. First Name: ALBERT 3. Middle Name: TANNER 4. Assessment Date: 5. : 6. Age: 28 7. Gender: M 8. DoD ID Number: [id number] 9. Service Branch: [employer] 10. 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 Status: [employer] [place] 12. Pay Grade: E05 13. Unit Name: [facility]TE[facility] 14. Duty Station/Location: [place] 15. UIC: [id number] 16. Is this your first Periodic Health Assessment (PHA)?: N 17. Are you enrolled in a secure messaging system with your health care provider?: Y 18. Current contact information: Preferred Method: Day Time Phone DSN: Day Time Phone: [phone] Night Time Phone: [phone] Email 1: [email or web address] Email 2: Address: [address] [place] [address]: [place] State: [place] Zip Code: [address] 19. Point of contact who can always reach you: Name: Sandra Sukhichacorta Phone 1: [phone] Phone 2: EMAIL: [email or web address] Address: [address] [place] [address]: [place] State: [place] Zip Code: [address] II. DEPLOYMENT INFORMATION (DEP) 1. [ 2 ] Total number of deployments in the PAST 5 YEARS 2. [ [place] ] Primary country of last deployment 3. [ ] Date departed theater 4. [ N ] Are you going to deploy within the NEXT 120 DAYS? III. 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 [ No ] Does your specialty require an operational duty physical exam? 4. [ Yes ] Are you currently enrolled in a medical surveillance/occupational health program?: Yes IV. MEDICAL CONDITIONS (JONATHON): 1. Since your last PHA, have you experienced any of the following health conditions, and if so, what is your status? [ Persistent or recurring noises in head or ears ] Conditions with no medical care [ High blood pressure ] Conditions with medical care, but no longer under treatment [ ] Conditions with medical care, and NOW under treatment 2. Since your last PHA, have you experienced any of the following health conditions, and if so, what is your status? [ ] Conditions with no medical care [ ] Conditions with medical care, but no longer under treatment [ Recurring muscle, joint, or low back pain, Stomach problems ] Conditions with medical care, and NOW under treatment 3. For any condition marked YES in question 1 or 2, are you currently on any profile or limited duty for that condition? [ Stomach problems ] Conditions 4. [ Not Sure ] Have you been based or stationed at a location where an open burn pit was used? 5. [ No ] Have you been exposed to toxic airborne chemicals or other airborne contaminants? 6. [ No ] Are you enrolled in the Airborne Hazards and Open Burn Pit Registry? 7. [ Y ] Federal law requires eligible members to enroll in the Airborne Hazards and Open Burn Pit Registry or opt-out. If eligble, choose one: 8. Have you had any surgery since your last PHA?: No 10.a. [ No ] Since your last PHA, has a health care provider recommended surgery(s) that you have not had? 11.a. [ No ] Do you currently require hearing aids, special medical supplies, CPAP, adaptive equipment, assistive technology devices, and/or other special accommodations? 12.a. [ Yes ] Do you have a waiver or profile for any part of your Service's physical fitness test? 12.b. [ Cardio EventCrunches/Sit-Ups, Push-Ups ] Which component(s) of your physical fitness test are waived/profiled? 13.a. [ No ] Do you have any problems wearing a gas mask, ballistic helmet, body armor, and/or chemical/biological protective garments? 14.a. [ No ] Have you ever been told by a health care provider that you SHOULD NOT receive an immunization for medical reasons? 15.a. [ No ] Do you have a permanent profile or an Assignment Limitation Code C? 16.a. [ Yes ] Are you on a temporary profile or limited duty? 16.b. [ Medical recommendation from for stomach issues ] Why? 17. [ 2 ] During the PAST 2 years, how many times have you been placed on a temporary profile or on limited duty? V. INDIVIDUAL MEDICAL READINESS (IMR) 1. [ No ] Do you have any allergies? 3. [ Not required ] Do you have red medical warning dog tags? 4. [ Yes ] Do you wear corrective lenses? 5. [ 1 ] How many pairs of glasses do you have? 6. [ Yes ] Do you have gas mask inserts? . BEHAVIORAL HEALTH (MHA) 1. a. [ None ] Over the PAST MONTH, what major life stressors have you experienced that are a cause of significant concern or make it difficult for you to do your work, take care of things at home, or get along with other people (for example, serious conflicts with others, relationship problems, or a legal, disciplinary or financial problem)? 2. a. [ Yes Anxiety/alcohol abuse ] In the PAST YEAR did you receive care for any mental health condition or concern such as, but not limited to post traumatic stress disorder (PTSD), depression, anxiety disorder, alcohol abuse or substance abuse? 3. [ Yes Propanalon 20mg,lexapro 20 mg ] What prescription or over-the counter medications (including herbals/supplements) for sleep, pain, combat stress, or a mental health problem are you CURRENTLY taking? 4. a. [ No ] In the past 12 months, have you gambled? 5. a. [ Never ] How often do you have a drink containing alcohol? 6. Have you ever had any experience that was so frightening, horrible, or upsetting that in the PAST MONTH, you: 6. a. [ No ] Have had nightmares about it or thought about it when you did not want to? 6. b. [ No ] Tried hard not to think about it or went out of your way to avoid situations that remind you of it? 6. c. [ No ] Were constantly on guard, watchful or easily startled? 6. d. [ No ] Bill[place] numb or detached from others, activities, or your surroundings? 6. e. [ Not answered ] Billings guilt or unable to stop blaming yourself or others for the event(s) or any problems the event(s) may have caused? 7. Over the LAST 2 WEEKS, how often have you been bothered by the following problems? 7. a. [ Not at all ] Little interest or pleasure in doing things 7. b. [ Not at all ] Feeling down, depressed, or hopeless 8. [ No ] Would you like to schedule an appointment with a health care provider to discuss any health concern(s)? 9. [ No ] Are you interested in receiving information or assistance for a stress, emotional or alcohol concern? 10. [ No ] Are you interested in receiving assistance for a family or relationship concern? 11. [ No ] Would you like to schedule a visit with a tree specialist, mental health care provider, or a community support counselor? VII. FAMILY HISTORY AND LIFESTYLE (LIF) 1. [ Very Good ] Overall, how would you rate your health during the PAST MONTH? 2. [ Canc ] Member indicates that family members have the following problems 3. The following family members has/had a history of cancer: Melenoma: Mother Unknown Type of Cancer: Grandmother, Grandfather 6. [ Yes ] I participate in moderate intensity physical activites at least 2.5 hours, or a combination of moderate and vigorous aerobic activites, for at least 75 minutes per week. 7. In a typical week, I do physical activities specifically designed to STRENGTHEN my muscles: [ 2 ] Day(s) per week 8. [ propanalol 20 mg, lexapro 20 mg ] What prescriptions or [id number] medications are you CURRENTLY taking for health problems on a ROUTINE BASIS? 9. Which of the following products have you taken since your last PHA: None of the above 11. Think about the PAST 30 DAYS. How often did you eat/drink the following foods/beverages? [ 3 to 6 servings per week ] Fruits [ 1 serving per day ] Vegetables [ 1 serving per day ] Starchy Vegetables [ 3 to 6 servings per week ] Whole Grains [ 1 serving per day ] Dairy and Calcium Containing Foods [ Rarely or Never ] Fish [ 2 servings per day ] Lean Protein [ 3 to 6 servings per week ] Sugar-Sweetened Beverages ] Have you had a cholesterol check by a health patient centered care specialist within the PAST 5 YEARS? 13.a. In the PAST 30 DAYS, which of the following products have you used on at least one day? Electronic Cigarettes 13.b. How long have you been using tobacco products?: 1 to 5 years 14. [ No ] Are you interested in quitting tobacco? 16. [ No ] Are you regularly exposed to secondhand smoke? 17. [ 5 to less than 7 hours ] During the LAST 2 WEEKS, how many hours of sleep did you get on most days? 18. [ No ] During the LAST 2 WEEKS, have you felt impaired or unable to adequately perform due to sleepiness or poor quality sleep? 19. [ No ] Have you had any unexplained weight loss or gain since your last PHA? 20. Member is not at risk for sexually transmitted infections. 22. Since your last PHA, what, if anything, have you and your partner used to keep from getting ? [ My partner(s) or I intend to get in the next year. ] I am not actively taking steps to prevent as 23. [ No ] In the last year, have you or your partner had a scare, where you were not trying to get but were worried enough to use a home test? X. OTHER MEDICAL (OTH) 1. [ 4 ] Rate the amount of pain you have had, on average, over the PAST 24 HOURS 2. [ Yes ] Are you receiving treatment for pain? 3. [ Yes ] Since your last PHA, have you received care or treatment for any medical and/or mental health condition(s) from a civilian or non- facility? 4. List the condition(s) treated and where the care was provided: Conditions: Stomach issues, Lower back pain Where: [facility] 5. Member acknowledged responsibility for reporting health issues. 7. [ No ] Woud you like to schedule an appointment with a health care provider to discuss any health concerns? XI. SEPARATION AND [facility]CF 1. 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 PART B. RECORD REVIEW AND RECOMMENDATIONS I. RECORD REVIEWER INFORMATION 1. Last Name: WALDEMAR 2. First Name: TARUN 3. Middle Name: 4. Service Branch: [employer] 5. 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 EMAIL: [email or web address] 8. Facility: [facility] 9. Unit: [facility] 10. Address: [address] [place] [address] 11. State: [place] 12. Zip Code: [address] 13. Phone: [phone] 14. Date Record Review: II. MEDICAL SCREENING 1. 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 [ 5 feet 11 inches Date: ] member of the legislative assembly's most recently documented height 3. [ 225 pounds Date: ] member of the legislative assembly's most recently documented weight 4. [ 117/79 Date: ] member of the legislative assembly's most recently documented blood pressure reading 5. [ No ] Does the member of the legislative assembly have a history of abnormal blood pressure since their last PHA? 6. [ Yes ] Does the member of the legislative assembly have a laboratory test of sickle cell trait documented in their permanent medical record? 7. [ No Cholesterol Test Documented ] What is the date of the member of the legislative assembly's most recently documented cholesterol test? 9. [ Wellbutrin 300mg- started in 2022 for anxiety Propranolol-2022 for anxiety and high bp Hydroxycin 50mg- started 2022- sleep aid lexapro 20mg ] List of member of the legislative assembly's active medications listed in their permanent medical record 10. [ No ] Is there a discrepancy between the active medication record review and the member of the legislative assembly's self-reported list of medications? 11. 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 [ No ] Is there a discrepancy between the member of the legislative assembly's list of OUTSIDE care (from OT5), and the OUTSIDE care found in the record? 13. 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 [ Not Answered ] Confirm that vaccine exemptions are listed in the medical record for each vaccine listed III. OCCUPATION-SPECIFIC EXAMINATIONS 2. 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 IV. FAMILY HISTORY AND LIFESTYLE 1. [ Yes ] Does the [id number] reflect the member of the legislative assembly's reported family history? VII. INDIVIDUAL MEDICAL READINESS 1. 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 2. 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 [ Classification: 1 ] Most recently documented dental exam 4. 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 5. 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 6. Does the member of the legislative assembly have the following laboratory tests documented in their permanent medical record? [ Yes ] HIV test within the PAST 24 months [ Yes ] G6PD results on file [ Yes ] Blood type and Rh on file [ Yes ] DNA test on file IX. ADDITIONAL RECORD REVIEWER COMMENTS 1. This record review indicates the potential need for provider notification or referral: Provider Notified 2. Additional comments about this record review that need to be forwarded to the Health Landscape Manager completing PART C: member stated they are currently under tx for hypertension, stomach problems. also stated in the past year they received care for anxiety and alcohol abuse. currently prescribed propranolol 20mg, Lexapro 20mg. Date Record Review Completed: PART C. HEALTH CARE PROVIDER I. MENTAL HEALTH ASSESSMENT (MHA) PROVIDER INFORMATION 1. Last Name: LISA 2. First Name: THUAN 3. Middle Name: 4. Service Branch: [employer] 5. 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 EMAIL: [email or web address] 8. Facility: [address] [place], [place] [address] 9. Unit: [address] [place], [place] [address] 10. Address: [address] [place] [address] 11. State: [place] 12. Zip Code: [address] 13. Phone: [phone] 14. Date HCP Review initiated: 1. Member marked that they did not have a concern or a difficulty with a major life stressor. 2. Address concerns identified on member questions 2 and 3. History of mental health care: Member indicated concern or yes Member's response: Anxiety/alcohol abuse Anxiety/alcohol abuse Provider's comments: . Medications: Member indicated concern or yes Member's response: Propanalon 20mg,lexapro 20 mg Propanalon 20mg,lexapro 20 mg Provider's comments: . 3. Member's AUDIT-C screening score was 0. (nothing required) 4. Member did not mady yes on two or more of questions 6a through 6e. 5. Member did not mady More than half the days or nearly every day on question 7a or 7b. 6. Suicide risk evaluation. 6. a. Ask: Over the past month, have you wished you were or wished you could go to sleep and not wake up?: No 6. b. Ask: Have you actually had any thoughts of killing yourself?: No 6. f. 1. Ask: In you lifetime, have you done anything, started to do anything, or prepared to do anything to end your life?: No 6. g. Further risk assessment comments: 7. Member states that they have not had thoughts or concerns over the past month that they might hurt or lose control with someone. 9. Summary of Provider's identified concerns needing referrals: None 11. Comments: 13. Supplemental services recommended/information provided: No supplemental services required Date MHA Certified: III. PERIODIC HEALTH ASSESSMENT (PHA) PROVIDER INFORMATION 1. Last Name: LISA 2. First Name: THUAN 3. Middle Name: 4. Service Branch: [employer] 5. 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 EMAIL: [email or web address]..[facility] 8. Facility: [address] [place], [place] [address] 9. Unit: [address] [place], [place] [address] 10. Address: [address] [address] 11. State: [place] 12. Zip Code: [address] 13. Phone: [phone] 14. Date HCP Review initiated: IV. PERIODIC HEALTH ASSESSMENT PROVIDER RECOMMENDATIONS and REFERRALS 1. Provider concerns with this assessment: No issues or concerns identified V. SUMMARY AND COMMENTS 1. Additional information summarizing findings during the member of the legislative assembly assessment: 2. Provider Comments: . INDIVIDUAL MEDICAL READINESS DISPOSITION DETERMINATION JONATHON: Ready DEN: Ready IMM: Ready LAB: Ready ME: Ready IMR Status: Fully Medically Ready VII. 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 Reference Memo 6490.07 Yes (member of the legislative assembly DOES NOT currently have a medical condition that limits deployability) Date PHA Completed: END OF [id number] REPORT Impression:Meets?medical standards per RIAZ 48-123/MSD. Disposition:?No AF469 changes based on this encounter.[employer] Qualified. Extracted from:Title: BEH *Psychiatrist OP Follow Up Note Author: CHLOÉ LAUREN MD Date: 10/24/2326-Mar-23 Pt was referred for med mgmt for Alcohol Use DO, in early remission, and chronic anxiety and sleep issues that have persisted despite avoiding alcohol for 6 mo and doing well in recovery. ?Pt described panic-like attacks occurring 1-2x per week associated with sudden onset anxiety, tunnel vision, nausea, SOB, and tension. ?Pt denied sense of impending doom, and his worry about attacks and associated impairment is fairly mild. ?He expressed some hesitancy about driving, public places, and social events. ?Pt s father and brother are treated for MAYTE. ?He endorsed generalized symptoms including insomnia, restlessness, fidgetiness, intermittent nausea, and elevated BP; however, he denied excessive worry about multiple life areas, not meeting criteria for MAYTE. Dx of Unspecified Anxiety DO is assigned. ?Pt was agreeable with a trial of Lexapro for anxiety, starting with a low dose given his past adverse reaction to Zoloft. ?Benefit from Wellbutrin is questionable, and it may be contributing to insomnia, so will switch to the SR form and decrease the dose to 200mg. ?Pt will continue PRN hydroxyzine for sleep for now, but will consider alternative if sleep does not improve. ?HTN is inadequately controlled with Propranolol; will plan to switch to a first-line treatment once psychotropics are stable; increasing to 20mg TID in the interim. ?Pt to continue home BP checks. 07-May-23 Anxiety symptoms, avoidant behaviors, insomnia, and functioning have improved significantly with med change. ?Increasing Lexapro to 15mg for residual symptoms and tapering Wellbutrin with goal of stopping. ?BP at home is improving as well, and pt is decreasing Propranolol. ?Pt will continue to monitor BP at home with goal of stopping Propranolol. ?If BP does not continue to improve, may consider switch to a first line antihypertensive. ? 19-Jun-23 Anxiety and overall functioning continue to improve. ?Remains motivated for recovery. ?Ready to stop Wellbutrin. ?Lexapro is working well but he is having side effect of ED. ?Will start trial of Viagra. 21-Aug-23 Pt continues to do well in recovery, and he s functioning well. ?Anxiety has improved, though he continues to have residual symptoms. ?Increasing Lexapro to 20mg. 24-Oct-23 Pt reports anxiety is well managed, he remains active in recovery from alcohol, and is functioning well socially and occupationally. ?No med changes. ? ? ? Treatment Plan / Recommendations:?Meds/Labs: ??Continue?Lexapro?20mg daily ??Continue Hydroxyzine 50mg HS PRN sleep ??Continue?Propranolol 20mg?BID PRN anxiety ??Continue Viagra 50mg PRN 1 hr before sexual activity ??Discussed risk, benefits, and alternatives, side effects and any black box warnings of treatment recommendations. Patient understood and agreed with treatment plan and recommendations. ??Psychotherapy:?completed ??Next appointment: ?23-Jan-24 at?1345?ET? via [employer] ? 1.?Anxiety disorder, unspecified Ordered: propranolol(propranolol 20 mg oral tablet), 1 tab(s), Oral, BID, PRN anxiety, # 60 tab(s), 2 total refill(s), Maintenance, 1 tab(s) Oral BID,PRN:anxiety, Pharmacy: [id number] [External Rx] ? 2.?Alcohol use disorder, in sustained remission ? 3.?Drug-induced erectile dysfunction Ordered: sildenafil(Viagra 50 mg oral tablet), 1 tab(s), Oral, Daily, 1 hour before sexual activity * max 10 per month*, # 10 tab(s), 5 total refill(s), Maintenance, 1 tab(s) Oral Daily,Instr:1 hour before sexual activity * max 10 per month*, [id number] ? Orders: hydrOXYzine(hydrOXYzine pamoate 50 mg oral capsule), 1 cap(s), Oral, Daily, PRN as needed for anxiety, # 15 cap(s), 2 total refill(s), Maintenance, may sub with tablets, 1 cap(s) Oral Daily,PRN:as needed for anxiety, Pharmacy: [facility] #[id number] [External Rx] escitalopram(Lexapro 20 mg oral tablet), 1 tab(s), Oral, Daily, # 30 tab(s), 2 total refill(s), Maintenance, 1 tab(s) Oral Daily, [facility]: [id number] [External Rx] Prognosis: Good Benefits, Risks, Alternatives Discussed: Yes Treatment Plan: Continue current medications, Encourage balanced diet, Exercise 4-5 times / week, Practice good sleep hygiene, Continue current psychotherapy Number of Visits Expected: Ongoing Maintenance Target Symptoms: Anxiety, Insomnia, Substance use Goals of Treatment: Improve overall functioning, Decrease in target symptoms Methods of Monitoring Outcomes: Reduced Audit-C score, Reduced MAYTE-7 score, Reduced PHQ-9 score Evaluation Type: By complexity ? Objectives of Treatment #1: Maintain sobriety Goals of Treatment #1: Improve overall functioning Interventions of Treatment #1: Attend [facility]T OP group; continue psychotherapy Objective #1 Goal Status: Progressing, continue Objective #1 Start Date: 02/12/23 ? ? ? Treatment Planning Requirements: 1) Developed treatment plan collaboratively with patient, with agreement on plan of care and goals, 2) Patient agrees to attend appointments, engage in treatment, discuss any concerns in order to meet treatment goals, 3) Provider will leverage patient strengths and limit potential barriers to treatment Extracted from:Title: BEH *Psychiatrist OP Follow Up Note Author: CHLOÉ LAUREN MD Date: 08/21/2326-Mar-23 Pt was referred for med mgmt for Alcohol Use DO, in early remission, and chronic anxiety and sleep issues that have persisted despite avoiding alcohol for 6 mo and doing well in recovery. ?Pt described panic-like attacks occurring 1-2x per week associated with sudden onset anxiety, tunnel vision, nausea, SOB, and tension. ?Pt denied sense of impending doom, and his worry about attacks and associated impairment is fairly mild. ?He expressed some hesitancy about driving, public places, and social events. ?Pt s father and brother are treated for MAYTE. ?He endorsed generalized symptoms including insomnia, restlessness, fidgetiness, intermittent nausea, and elevated BP; however, he denied excessive worry about multiple life areas, not meeting criteria for MAYTE. Dx of Unspecified Anxiety DO is assigned. ?Pt was agreeable with a trial of Lexapro for anxiety, starting with a low dose given his past adverse reaction to Zoloft. ?Benefit from Wellbutrin is questionable, and it may be contributing to insomnia, so will switch to the SR form and decrease the dose to 200mg. ?Pt will continue PRN hydroxyzine for sleep for now, but will consider alternative if sleep does not improve. ?HTN is inadequately controlled with Propranolol; will plan to switch to a first-line treatment once psychotropics are stable; increasing to 20mg TID in the interim. ?Pt to continue home BP checks. 07-May-23 Anxiety symptoms, avoidant behaviors, insomnia, and functioning have improved significantly with med change. ?Increasing Lexapro to 15mg for residual symptoms and tapering Wellbutrin with goal of stopping. ?BP at home is improving as well, and pt is decreasing Propranolol. ?Pt will continue to monitor BP at home with goal of stopping Propranolol. ?If BP does not continue to improve, may consider switch to a first line antihypertensive. ? 19-Jun-23 Anxiety and overall functioning continue to improve. ?Remains motivated for recovery. ?Ready to stop Wellbutrin. ?Lexapro is working well but he is having side effect of ED. ?Will start trial of Viagra. 21-Aug-23 Pt continues to do well in recovery, and he s functioning well. ?Anxiety has improved, though he continues to have residual symptoms. ?Increasing Lexapro to 20mg. ? ? ? Treatment Plan / Recommendations:?Meds/Labs: ??Increase?Lexapro?to 20mg daily ??Continue Hydroxyzine 50mg HS PRN sleep ??Continue?Propranolol to 20mg?BID-TID ??Continue Viagra 50mg PRN 1 hr before sexual activity ??Discussed risk, benefits, and alternatives, side effects and any black box warnings of treatment recommendations. Patient understood and agreed with treatment plan and recommendations. ??Psychotherapy: continue with?ADAPT?aftercare ??Next appointment: ?24-Oct-23 at?1345?ET? via [employer] ? 1.?Alcohol Use Disorder, severe, in early remission ? 2.?Anxiety disorder, unspecified Ordered: escitalopram(Lexapro 20 mg oral tablet), 1 tab(s), Oral, Daily, # 30 tab(s), 2 total refill(s), Maintenance, 1 tab(s) Oral Daily, Pharmacy: [facility] #[id number] [External Rx] propranolol(propranolol 20 mg oral tablet), 1 tab(s), Oral, BID, PRN anxiety, # 60 tab(s), 1 total refill(s), Maintenance, 1 tab(s) Oral BID,PRN:anxiety, Pharmacy: [facility] #[id number] [External Rx] ? 3.?Drug-induced erectile dysfunction Ordered: sildenafil(Viagra 50 mg oral tablet), 1 tab(s), Oral, Daily, 1 hour before sexual activity * max 10 per month*, # 10 tab(s), 1 total refill(s), Maintenance, 1 tab(s) Oral Daily,Instr:1 hour before sexual activity * max 10 per month*, Pharmacy: [facility] #[id number] [External Rx] ? Orders: hydrOXYzine(hydrOXYzine pamoate 50 mg oral capsule), 1 cap(s), Oral, Daily, PRN as needed for anxiety, # 30 cap(s), 1 total refill(s), Maintenance, may sub with tablets, 1 cap(s) Oral Daily,PRN:as needed for anxiety, Pharmacy: [facility]acy #[id number] [External Rx] Prognosis: Good Benefits, Risks, Alternatives Discussed: Yes Treatment Plan: Encourage balanced diet, Exercise 4-5 times / week, Practice good sleep hygiene, Continue current psychotherapy Number of Visits Expected: 1-3 Target Symptoms: Anxiety, Insomnia, Substance use Goals of Treatment: Improve overall functioning, Decrease in target symptoms Methods of Monitoring Outcomes: Reduced Audit-C score, Reduced MAYTE-7 score, Reduced PHQ-9 score Evaluation Type: By complexity ? Objectives of Treatment #1: Maintain sobriety Goals of Treatment #1: Improve overall functioning Interventions of Treatment #1: Attend [facility] OP group; continue psychotherapy Objective #1 Goal Status: Progressing, continue Objective #1 Start Date: 02/12/23 ? ? ? Treatment Planning Requirements: 1) Developed treatment plan collaboratively with patient, with agreement on plan of care and goals, 2) Patient agrees to attend appointments, engage in treatment, discuss any concerns in order to meet treatment goals, 3) Provider will leverage patient strengths and limit potential barriers to treatment Extracted from:Title: BEH *Psychiatrist OP Follow Up Note Author: CHLOÉ LAUREN MD Date: 06/19/2326-Mar-23 Pt was referred for med mgmt for Alcohol Use DO, in early remission, and chronic anxiety and sleep issues that have persisted despite avoiding alcohol for 6 mo and doing well in recovery. ?Pt described panic-like attacks occurring 1-2x per week associated with sudden onset anxiety, tunnel vision, nausea, SOB, and tension. ?Pt denied sense of impending doom, and his worry about attacks and associated impairment is fairly mild. ?He expressed some hesitancy about driving, public places, and social events. ?Pt s father and brother are treated for MAYTE. ?He endorsed generalized symptoms including insomnia, restlessness, fidgetiness, intermittent nausea, and elevated BP; however, he denied excessive worry about multiple life areas, not meeting criteria for MAYTE. Dx of Unspecified Anxiety DO is assigned. ?Pt was agreeable with a trial of Lexapro for anxiety, starting with a low dose given his past adverse reaction to Zoloft. ?Benefit from Wellbutrin is questionable, and it may be contributing to insomnia, so will switch to the SR form and decrease the dose to 200mg. ?Pt will continue PRN hydroxyzine for sleep for now, but will consider alternative if sleep does not improve. ?HTN is inadequately controlled with Propranolol; will plan to switch to a first-line treatment once psychotropics are stable; increasing to 20mg TID in the interim. ?Pt to continue home BP checks. 07-May-23 Anxiety symptoms, avoidant behaviors, insomnia, and functioning have improved significantly with med change. ?Increasing Lexapro to 15mg for residual symptoms and tapering Wellbutrin with goal of stopping. ?BP at home is improving as well, and pt is decreasing Propranolol. ?Pt will continue to monitor BP at home with goal of stopping Propranolol. ?If BP does not continue to improve, may consider switch to a first line antihypertensive. ? 19-Jun-23 Anxiety and overall functioning continue to improve. ?Remains motivated for recovery. ?Ready to stop Wellbutrin. ?Lexapro is working well but he is having side effect of ED. ?Will start trial of Viagra. ? ? ? Treatment Plan / Recommendations:?Meds/Labs: ??Continue?Lexapro?to 15mg daily ??Stop?Wellbutrin SR?100mg ??Continue Hydroxyzine 50mg HS PRN sleep ??Continue?Propranolol to 20mg?BID-TID ??Start Viagra 50mg PRN 1 hr before sexual activity. ??Discussed risk, benefits, and alternatives, side effects and any black box warnings of treatment recommendations. Patient understood and agreed with treatment plan and recommendations. ??Psychotherapy: continue with?ADAPT level 1 ??Next appointment: ?21-Aug-23 at?1245?ET? via [employer] ? 1.?Anxiety disorder, unspecified Ordered: propranolol(propranolol 20 mg oral tablet), 1 tab(s), Oral, TID, PRN anxiety, # 90 tab(s), 1 total refill(s), Maintenance, 1 tab(s) Oral TID,PRN:anxiety, Pharmacy: [facility] #[id number] [External Rx] ? 2.?Alcohol Use Disorder, severe, in early remission ? 3.?Drug-induced erectile dysfunction Ordered: sildenafil(Viagra 50 mg oral tablet), 1 tab(s), Oral, Daily, 1 hour before sexual activity * max 10 per month*, # 10 tab(s), 1 total refill(s), Maintenance, 1 tab(s) Oral Daily,Instr:1 hour before sexual activity * max 10 per month*, [id number] [External Rx] ? Orders: hydrOXYzine(hydrOXYzine pamoate 50 mg oral capsule), 1 cap(s), Oral, Daily, PRN as needed for anxiety, # 30 cap(s), 1 total refill(s), Maintenance, may sub with tablets, 1 cap(s) Oral Daily,PRN:as needed for anxiety, Pharmacy: [facility] #[id number] [External Rx] escitalopram(Lexapro 5 mg oral tablet), 3 tab(s), Oral, Daily, # 90 tab(s), 1 total refill(s), Maintenance, 3 tab(s) Oral Daily, Pharmacy: [facility] #[id number] [External Rx] Prognosis: Good Benefits, Risks, Alternatives Discussed: Yes Treatment Plan: Encourage balanced diet, Exercise 4-5 times / week, Practice good sleep hygiene, Continue current psychotherapy Number of Visits Expected: 1-3 Target Symptoms: Anxiety, Insomnia, Substance use Goals of Treatment: Improve overall functioning, Decrease in target symptoms Methods of Monitoring Outcomes: Reduced Audit-C score, Reduced MAYTE-7 score, Reduced PHQ-9 score Evaluation Type: By complexity ? Objectives of Treatment #1: Maintain sobriety Goals of Treatment #1: Improve overall functioning Interventions of Treatment #1: Attend [facility] OP group; continue psychotherapy Objective #1 Goal Status: Progressing, continue Objective #1 Start Date: 02/12/23 ? ? ? Treatment Planning Requirements: 1) Developed treatment plan collaboratively with patient, with agreement on plan of care and goals, 2) Patient agrees to attend appointments, engage in treatment, discuss any concerns in order to meet treatment goals, 3) Provider will leverage patient strengths and limit potential barriers to treatment Extracted from:Title: BEH *Psychiatrist OP Follow Up Note Author: CHLOÉ LAUREN MD Date: 05/07/23 1.?Anxiety disorder, unspecified 26-Mar-23 Pt was referred for med mgmt for Alcohol Use DO, in early remission, and chronic anxiety and sleep issues that have persisted despite avoiding alcohol for 6 mo and doing well in recovery. ?Pt described panic-like attacks occurring 1-2x per week associated with sudden onset anxiety, tunnel vision, nausea, SOB, and tension. ?Pt denied sense of impending doom, and his worry about attacks and associated impairment is fairly mild. ?He expressed some hesitancy about driving, public places, and social events. ?Pt s father and brother are treated for MAYTE. ?He endorsed generalized symptoms including insomnia, restlessness, fidgetiness, intermittent nausea, and elevated BP; however, he denied excessive worry about multiple life areas, not meeting criteria for MAYTE. Dx of Unspecified Anxiety DO is assigned. ?Pt was agreeable with a trial of Lexapro for anxiety, starting with a low dose given his past adverse reaction to Zoloft. ?Benefit from Wellbutrin is questionable, and it may be contributing to insomnia, so will switch to the SR form and decrease the dose to 200mg. ?Pt will continue PRN hydroxyzine for sleep for now, but will consider alternative if sleep does not improve. ?HTN is inadequately controlled with Propranolol; will plan to switch to a first-line treatment once psychotropics are stable; increasing to 20mg TID in the interim. ?Pt to continue home BP checks. 07-May-23 Anxiety symptoms, avoidant behaviors, insomnia, and functioning have improved significantly with med change. ?Increasing Lexapro to 15mg for residual symptoms and tapering Wellbutrin with goal of stopping. ?BP at home is improving as well, and pt is decreasing Propranolol. ?Pt will continue to monitor BP at home with goal of stopping Propranolol. ?If BP does not continue to improve, may consider switch to a first line antihypertensive. ? Treatment Plan / Recommendations:?Meds/Labs: ??Increase?Lexapro?to 15mg daily ??Decrease?Wellbutrin SR?to 100mg?qam ??Continue Hydroxyzine 50mg HS PRN sleep ??Decrease?Propranolol to 20mg?BID ??Discussed risk, benefits, and alternatives, side effects and any black box warnings of treatment recommendations. Patient understood and agreed with treatment plan and recommendations. ??Psychotherapy: continue with?ADAPT level 1 ??Next appointment: ?19-Jun-23 at 1245 ET? via [employer] ? Ordered: escitalopram(Lexapro 5 mg oral tablet), 3 tab(s), Oral, Daily, # 90 tab(s), 1 total refill(s), Maintenance, 3 tab(s) Oral Daily, Pharmacy: [facility] #[id number] [External Rx] propranolol(propranolol 20 mg oral tablet), 1 tab(s), Oral, BID, PRN anxiety, # 60 tab(s), 1 total refill(s), Maintenance, 1 tab(s) Oral BID,PRN:anxiety, Pharmacy: [facility] #[id number] [External Rx] buPROPion(Wellbutrin SR 100 mg/12 hours oral tablet, extended release), 1 tab(s), Oral, every morning, # 30 tab(s), 1 total refill(s), Maintenance, 1 tab(s) Oral every morning, [id number] [[facility] ? 2.?Alcohol Use Disorder, severe, in early remission ? 3.?Essential (primary) hypertension Ordered: propranolol(propranolol 20 mg oral tablet), 1 tab(s), Oral, BID, PRN anxiety, # 60 tab(s), 1 total refill(s), Maintenance, 1 tab(s) Oral BID,PRN:anxiety, Pharmacy: [facility]/pharmacy #[id number] [External Rx] ? 4.?Insomnia, unspecified Ordered: hydrOXYzine(hydrOXYzine pamoate 50 mg oral capsule), 1 cap(s), Oral, Daily, PRN as needed for anxiety, # 30 cap(s), 1 total refill(s), Maintenance, may sub with tablets, 1 cap(s) Oral Daily,PRN:as needed for anxiety, Pharmacy: [facility]/pharmacy #[id number] [External Rx] ? Prognosis: Fair Benefits, Risks, Alternatives Discussed: Yes Treatment Plan: Encourage balanced diet, Exercise 4-5 times / week, Practice good sleep hygiene, Continue current psychotherapy Number of Visits Expected: 1-3 Target Symptoms: Anxiety, Insomnia, Substance use Goals of Treatment: Improve overall functioning, Decrease in target symptoms Methods of Monitoring Outcomes: Reduced Audit-C score, Reduced MAYTE-7 score, Reduced PHQ-9 score Evaluation Type: By complexity ? Objectives of Treatment #1: Maintain sobriety Goals of Treatment #1: Improve overall functioning Interventions of Treatment #1: Attend ADAPT OP group; continue psychotherapy Objective #1 Goal Status: Progressing, continue Objective #1 Start Date: 02/12/23 ? ? ? 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 ?[facility] HCP terminal audiogram profile is?pending 03 OCT 2022; ?Reviewed member s 2807 positioned against review of vianca and JLV entries. ?Concur with entirety of member s identified issues. ?Isolated additional issues identified (see A&P). Review?did not identify concerns that meet MSD criteria or warrant consideration of an AMRO referral. Forms 2807 and 2808 will be completed via [facility] following HCP audiogram completion. RTC as needed for additional care, PVUA. Patient denies any thoughts or concerns consistent with Suicidal or Homicidal Ideations.; prev med : discussed infection control with hand washing, 100% seat-belt use for safety;?discussed med use, side effects and warnings given, no additional profile;? Addendum by ANDREA ANDERSON MD on October 03, 2022 08:59:37 CDT ? DIANE - Privacy?[facility] - [id number] - [employer] - User: [email or web address]?Log Off SEPARATION MENTAL HEALTH ASSESSMENT ? Date: ? 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 Recommended referal(s): ? ? Referral Time Comments: ? ? SECTION II. MENTAL HEALTH ASSESSMENT (MHA) PROVIDER INFORMATION 1. Last Name: Arron 2. First Name: Andrea 3. Middle Name: Wes 4. Service Branch: [employer] 5. 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 EMAIL: [email or web address] 8. Facility: [facility] 9. Unit: 2 [facility] 10. Address: [facility] 11. State: [facility]. Zip Code: [address] 13. Date: 1.? Deployer marked that they have a concern or a difficulty with a major life stressor: Member denies any specific psychological needs, no SI/HI, not a danger to self/others ? ? Additional info: family/relationship ? ? Referral is not indicated because there is no significant impairment. ? 2.? Address concerns identified on deployer questions 2 and 3. ? ? History of mental health care: N/A ? Deployer's response:? Provider's comments: ? ? Medications: N/A ? Deployer's response:? Provider's comments: ? 3.? Deployer's AUDIT-C screening score was 1. (nothing required) ? 4.? Deployer did not mady yes on three or more of questions 5a through 5e. 5.? Deployer did not mady More than half the days or nearly every day on question 6a or 6b. ? 6.a.? Deployer has not wished they were or wished they could go to sleep and not wake up. 6.b.? Deployer has not actually had thoughts of killing themself. 6.f.1.? Deployer has not ever done anything, started to do anything, or prepared to do anything to end their life. 6.g. Further risk assessment: Member denies any specific psychological needs, no SI/HI, not a danger to self/others 6.h.? Deployer does not pose a current risk for harm to self. ? 7.? Deployer states that they have not had thoughts or concerns over the past month that they might hurt or lose control with someone. ? ? 13. Supplemental services recommended/information provided: ? ? No Supplemental Services Required 1. a. [? family/relationship ] Over the PAST MONTH, which major life stressors, if any, have you experienced that are a cause of significant concern or make it difficult for you to do your work, take care of things at home, or get along with other people? 1. b. [ No ]? Are you currently in treatment or getting professional help for this concern? ? 2. [? No? ] In the PAST YEAR did you receive care for any mental health condition or concern such as, but not limited to post traumatic stress disorder (PTSD), depression, anxiety disorder, alcohol abuse or substance abuse? ? 3. [? None? ] What prescription or over-the counter medications (including herbals/supplements) for sleep, pain, combat stress, or a mental health problem are you CURRENTLY taking? ? 4. a. [ Monthly ] How often do you have a drink containing alcohol? 4. b. [ 1 or 2 ] How many drinks containing alcohol do you have on a typical day when you are drinking? 4. c. [ Never ] How often do you have six or more drinks on one occasion? ? 5. Have you ever had any experience that was so frightening, horrible, or upsetting that in the PAST MONTH, you: 5. a. [ No ] Have had nightmares about it or thought about it when you did not want to? 5. b. [ No ] Tried hard not to think about it or went out of your way to avoid situations that remind you of it? 5. c. [ No ] Were constantly on guard, watchful or easily startled? 5. d. [ No ] Bill[place] numb or detached from others, activities, or your surroundings? 5. e. [ No ] Billings guilt or unable to stop blaming yourself or others for the event(s) or any problems the event(s) may have caused? ? 6. Over the LAST 2 WEEKS, how often have you been bothered by the following problems? 6. a. [ Not at all ] Little interest or pleasure in doing things 6. b. [ Not at all ] Feeling down, depressed, or hopeless ? 7. [ No ] Would you like to schedule an appointment with a health care provider to discuss any health concern(s)? 8. [ No ] Are you interested in receiving information or assistance for a stress, emotional or alcohol concern? 9. [ No ] Are you interested in receiving assistance for a family or relationship concern? 10. [ No ] Would you like to schedule a visit with a tree specialist or a community support counselor? ? Note [facility] HCP audiogram could not be performed prior to date of separation (end of contract) 04 OCT 2022 (audiogram booths inoperative with unknown date of repair);? member briefed of this by [facility] coordinator, and post-separation [facility] audiogram evaluation can be performed as needed Extracted from:Title: PCPF Author: CINDY DRUMMOND MD Date: 08/27/22 1.?Admission certification approved MEMBER IS MEDICALLY QUALIFIED FOR DUTY Members medical records have been reviewed IAW GABY [id number] Chapter 5 and MEDICAL STANDARDS DIRECTORY (MSD) for Continued Service (Retention Standards), no disqualifying defects were found. Member is World-Wide Qualified and cleared for Continued Service.? Member is not on ALC Code C, X, or Y. ? [employer] approval is clearance to apply for the [employer] program, it does not constitute acceptance by the applicable [employer] [place] [employer] (ARC) IMR: Yellow for Td due.? ? Non-Flyer; Not PRP; Not AUoF? CINDY DRUMMOND MD, MSPH, CFS, APPLICATIONS TRAINER ? 15?minutes spent reviewing medical records, examining patient, educating patient and writing clinical note.? 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 Recommended continued prev-med practices/immunizations ? F/u prn ER vs RTC precautions provided PVUA ? ? ? Ordered: HIV-1/O/2 EPI [id number] Repository Sample EPI [id number] ? 2.?ASSESSMENT, POST DEPLOYMENT, DOCUMENTED ON [id number] ([facility]) ? 07/21/2024 [id number] [employer] Functional Status Combined list of recent functional and cognitive assessments recorded at Department of Defense and Veterans Affairs (VA).VA Functional [place] Measurement (FIM) Scale: 1 = Total Assistance (Subject = 0% +), 2 = Maximal Assistance (Subject = 25% +), 3 = Moderate Assistance (Subject = 50% +), 4 = Minimal Assistance (Subject = 75% +), 5 = Supervision, 6 = Modified [place] (Device), 7 = Complete [place] (Timely, Safely). Assessment Date/Time Source Assessment Type Assessment Skill Assessment Score Assessment Details FUNCTIONAL 4Home Dietary Supplements Captured No
== END 2024-07-20 16:20 | disposition home or self-care (01) ==
PROVIDERS: Visit Provider Internal Medicine
DX: Z76.89 Persons encountering health services in other specified circumstances (principal); I10 Essential (primary) hypertension; M54.50 Low back pain, unspecified

== ENCOUNTER → 2024-07-20 15:17 | Outpatient (BNVA) | payer OTHER, SELFPAY | PROVIDERS: Visit Provider Internal Medicine | DX: I10 Essential (primary) hypertension (principal); M54.50 Low back pain, unspecified; R03.0 Elevated blood-pressure reading, without diagnosis of hypertension; F98.8 Other specified behavioral and emotional disorders with onset usually occurring in childhood and adolescence; Z76.89 Persons encountering health services in other specified circumstances | CPT/HCPCS: 96127; 99202 ==

== ENCOUNTER 2024-11-09 14:30 | Outpatient (AMB) | payer OTHER, SELFPAY ==
[2024-11-09 14:31] VITALS: BP 118/84; PULSE 88; TEMP 36.8; O2SAT 95; BMI 26.8
--- NOTE | 2024-11-09 14:31 | AM.OFFWIN_ITS ---
Intake Vital Signs 11/09/24 14:31 Height 5 ft 11 in Weight 192 lb BMI 26.8 BP 118/84 Blood Pressure Location Lt brachial Position Sitting Pulse 88 Pulse Source Pulse Oximeter Temp 98.3 F Temp Source Oral Pulse Oximetry (%) 95 Oxygen Delivery Method Room Air Intake Visit Reasons: PE Migraine, nausea Intake Note: Pt presents to the office today for c/o migraines and nausea x6 days. Pt states he had a low grade temp last night as well as diarrhea for 2 days. Pt denies any auras. Pt states he has been having migraines on and off for the past 3-4 months. Patient Tobacco Use Status: Former Tobacco user Allergies No Known Allergies Allergy (Verified 11/09/24 14:34) HPI HPI Comments History of Present Illness Details History of Present Illness - The patient is a 29-year-old male pres enting with nausea, diarrhea, and a history of a severe migraine. - The migraine began last , desc ribed as the worst experienced, necessitating early departure from work due to severe pain radiating from the neck to behind the eyes. - The migraine was accompanied by light and sound sensitivity, which subsided by Friday noon. - The patient took 1000mg Tylenol, which did not alleviate the headache. It resolved on it's own within a day. - Nausea and diarrhea began concurrently with the migraine, with diarrhea described as watery and persistent for five days. - The patient reported a temp of 99.2?F the previous night. - No recent antibiotic use or changes in medication, and no history of bloody or black stools. - The patient has a history of dieting a nd weight loss, with no new medications or significant dietary changes except for consuming [place] food prior to symptom onset. - The patient has a history of ear infec tions with tympanostomy tubes as a child, with current examination showing scar tissue on the tympanic membrane. Physical Exam General: Cooperative, healthy appearing, comfortable, no acute distress and well developed Orientation: Patient oriented x3 Limitations: No limitations Head: Normal to inspection Ears: Hearing grossly normal bilaterally, EAC normal bilaterally, scar tissue on the left TM Nose: Normal External nose present Face and sinus: Normal facial exam Mouth: moist oral mucosa, posterior oropharynx with cobblestoning Eyes: Appearance normal, both eyes and all related structures Neck: Normal visual inspection and Yes full ROM Respiratory: Normal respiratory effort and able to speak in complete sentences. GI: hyperactive bs, soft, slight TTP LLQ, negative murphys, negative mcburneys Skin: No rashes or lesions noted Neuro: Patient oriented x3 Extremities: Normal to inspection PFSH Surgical History (Updated 07/20/24 @ 15:39 by Theresa Yung CMA) [place] teeth removed Hx of tonsillectomy H/O hernia repair Family History (Updated 07/20/24 @ 15:45 by Theresa Yung CMA) Father HTN (hypertension) Anxiety Mother Melanoma Maternal Grandmother Lung cancer Paternal Grandmother Colon cancer Maternal Grandfather Lung cancer Paternal Grandfather Anxiety Brother Anxiety Other FH: mental illness Substance abuse Social History (Updated 07/20/24 @ 15:40 by Theresa Yung CMA) Housing: Apartment Alcohol intake: current Alcohol intake frequency: 3 or more drinks per day Alcohol type: hard liquor Patient Tobacco Use Status: Former Tobacco user Cigarettes Per Day: 3 Years Smoked: 2 e-Cigarette/Vaping Use: Currently Using Second Hand Smoke Exposure: No service: Yes ([employer]) Current occupational status: employed Current occupation: [employer] Current occupational exposures/hazards: Yes (cromion, radiation) Cognitive needs: No Hearing needs: No Vision needs: No Review of Systems Const All systems reviewed & are unremarkable except as noted in HPI and below Physical Exam Vital Signs: Last Vital Signs Temp 98.3 F 11/09/24 14:31 Pulse 88 11/09/24 14:31 BP 118/84 11/09/24 14:31 Pulse Ox 95 11/09/24 14:31 Oxygen Delivery Method Room Air 11/09/24 14:31 BMI result Body Mass Index 26.8 Assessment & Plan Assessment & Plan (1) Diarrhea: Code(s): R19.7 - Diarrhea, unspecified Qualifiers: Diarrhea type: unspecified type Qualified Code(s): R19.7 - Diarrhea, unspecified Plan: - VSS, pt well appearing and PE unremarkable. - A stool sample will be collected for laboratory analysis to check for bacteria l infection, given the persistence of diarrhea beyond typical viral gastroenteritis duration. - The patient will be provided with Zofran to manage nausea symptoms until further diagnosis is confirmed. - The patient is advised to maintain hydration with low-sugar fluids and adhere to a clear diet to manage diarrhea symptoms. - The patient is instructed to seek emergency care if symptoms of bloody or black stools or high fever develop. Patient was informed and verbally consented to the use of an ambient scribe for clinic note documentation during this visit. (2) Nausea: Code(s): R11.0 - Nausea Plan: as above Orders: Orders GI Panel Today R19.7 - Diarrhea, unspecified Medications: New ondansetron 4 mg PO Q8H PRN 10 tabs 0RF nausea and vomiting Coding Level of Care Code Est Pt Level 4 (29707) Diagnoses Diarrhea, unspecified type R19.7 Diarrhea type: unspecified type Nausea R11.0
--- OUTSIDE RECORDS SUMMARY | 2024-11-09 16:48 | XMS_ITS | Clinical Summary ---
Author Organization [facility] ity Address [address] [place] [address] Care Team Providers Care Procedures Analyst Name Role Phone Unavailable Primary Care Provider [...] - 2023-2 5 season) 2024 Influenza Vaccine (Season Ended) 2025 HIB Vaccines Aged Out No longer eligi [...] age to complete this topic Meningococcal B Vaccine Aged Out No l onger eligible based on patient's age to complete [...]
== END 2024-11-09 15:05 | disposition home or self-care (01) ==
PROVIDERS: Visit Provider Physician Assistant
DX: R19.7 Diarrhea, unspecified (principal); R11.0 Nausea

== ENCOUNTER → 2024-11-09 14:30 | Outpatient (BNVA) | payer OTHER, SELFPAY | PROVIDERS: Visit Provider Physician Assistant | DX: R19.7 Diarrhea, unspecified (principal); R11.0 Nausea | CPT/HCPCS: 99212 ==